=== PATIENT | female | born 1940 | race Caucasian/White ===

== ENCOUNTER 2017-06-07 10:00 | Inpatient (IN) ==
[~2017-06-07 10:00] MED LIST: PNEUMOCOCCAL VAC ADMIN CHARGE INJ ONE
--- OUTSIDE RECORDS SUMMARY | 2017-06-07 10:24 | External Medical Summary | Continuity of Care Document ---
:1940 Author Organization [facility] Care Team Providers Name Role Phone SIXTO COOK Unavailable Unavailable Insurance Providers Payer Name Policy Number Subscriber Name Relationship Medicare A And B [id number] Irena Magana 18 Self / Same As Patient [employer] Supp [id number] Irena Magana 18 Self / Same As Patient Problems Medical Problems Problem Onset Date Status Dysuria 05/14/2012 Active Acute urinary tract infection 08/29/2013 Active SEPSIS 11/21/2012 Active Endoscopy of urinary bladder 06/02/2013 Active Injury of foot ~03/24/2014 Active Medications Medication Dose Route Sig Days/Qty Instructions Order Discontinued Status Date Date Lisinopril 10 Mg ORAL DAILY 07/20/14 Discontinue (Zestril) 12 d Hydrochlorothiaz 12.5 ORAL DAILY 01/01/14 Discontinue barbara Mg 12 d Metformin Hcl 500 ORAL TWICE 05/14/ Active Mg A DAY 12 Trimethoprim/Sul 1 Ea ORAL TWICE 14 Qty 03/06/13 Discontinue famethoxazole A DAY 12 d Phenazopyridine 200 ORAL EVERY 15 Qty 03/06/13 Discontinue Hcl Mg 8HRS 12 d PRN Levofloxacin 250 ORAL DAILY 4 Qty 03/06/13 Discontinue Mg 12 d Hydrocodone 1 Tab ORAL Q 4H 10 Qty Pain 05/19/ 07/23/14 Discontinue Bit/Acetaminophe PRN 12 d n Trimethoprim/Sul 1 Ea ORAL TWICE 14 Qty 01/01/14 Discontinue famethoxazole A DAY 14 d Phenazopyridine 200 ORAL EVERY 12 Qty 08/29/ 14 Discontinue Hcl Mg 8HRS 14 d Citalopram 40 Mg ORAL DAILY 01/01/ Active Hydrobromide 14 (Celexa) Oxycodone/Acetam 1 Tab ORAL EVERY 20 Qty 03/25/ /06/06 Discontinue inophen 6 14 d HOURS PRN PAIN Aspirin 81 Mg ORAL DAILY 07/20/ Active 15 Lisinopril/[place] 1 ORAL DAILY 07/20/ Active chlorothiazide Each 15 Ciprofloxacin/Ci 500 ORAL TWICE 07/20/ Active profloxa Hcl Mg A DAY 15 Social History No social history. Hospital Discharge Instructions No hospital discharge instructions. Plan of Care No plan of care. Functional Status No functional status results. Allergies, Adverse Reactions, Alerts Allergen Type Severity Reaction Status Last Updated Lovastatin Allergy Unknown Active 03/26/14 Pravastatin Allergy Unknown Active 03/26/14 Simvastatin Allergy Unknown Active 03/26/14 Immunizations No immunization records. Vital Signs Acute Vital Signs Vital Response Date/Time Temperature (Fahrenheit) 97.5 Pulse 84 bpm Respirations 20 Height 5 ft 2 in Weight 178 lb Body Mass Index 32.6 kg/m^2 Results Test Source Date Result Interp. Ref. Range Comments Absolute Neutrophil November 21, 0.2 # 2012 2:20pm Activated Partial November 21, 33.7 SEC N 25.0-39.0 Thromboplast Time 2012 2:20pm Alanine November 21, 20 U/L L 30-65 Aminotransferase 2014 7:45am (ALT/SGPT) Albumin November 21, 4.0 g/dL N 3.4-5.0 2014 7:45am Albumin/Globulin November 21, 1.379 N 1.1-1.8 Ratio 2014 7:45am Alkaline Phosphatase November 21, 65 U/L N 38-126 2014 7:45am Anion Gap November 21, 16.2 MEQ/L H 3-15 2014 7:45am Aspartate Amino November 21, 22 U/L N 15-37 Transf (AST/SGOT) 2014 7:45am BUN/Creatinine Ratio November 21, 18 N 10-20 2014 7:45am Band Neutrophils % November 21, 2 % N 0-6 2012 2:20pm Basophils # (Auto) June 0.1 10^3uL 2014 10:50am Basophils % (Manual) November 21, 0 % N 0-2 2012 2:20pm Basophils (%) (Auto) June 1 % N 0-2 2014 10:50am Blood Morphology November 21, Normal NORMAL Comment 2012 2:20pm Blood Urea Nitrogen November 21, 17 mg/dL N 7-18 2014 7:45am C-Reactive Protein May 30, 1.60 MG/DL H 0.0-0.9 CALL TO MICHELINE 2012 11:30am Calcium Level November 21, 8.9 mg/dL N 8.8-10.8 2014 7:45am Calcium/Ionized November 21, 4.0 mg/dL N 3.8-4.6 Calcium Ratio 2014 7:45am Calculated November 21, 272 mosm/L L 280-300 Osmolality 2014 7:45am Carbon Dioxide Level November 21, 22 mmol/L N 22-29 2014 7:45am Chloride Level November 21, 106 mmol/L N 98-108 2014 7:45am Cholesterol Level June 158 mg/dL N 50-200 2014 10:50am Cholesterol Risk June 4.2 N 0.0-5.0 Factor 2014 10:50am Creatinine November 21, 0.94 mg/dL N 0.6-1.2 2014 7:45am Differential Total November 21, 100 Cells Counted 2012 2:20pm Eosinophils # November 21, 0.0 # 2012 2:20pm Eosinophils # (Auto) June 0.3 10^3uL 2014 10:50am Eosinophils % November 21, 0 % N 0-4 (Manual) 2012 2:20pm Eosinophils (%) June 5 % H 0-4 (Auto) 2014 10:50am Estimat Glomerular November 21, 70.6 Filtration Rate 2014 7:45am Estimated GFR November 21, 58.4 (Non- 2014 7:45am Cymraes Glucose Level November 21, 89 mg/dL N 70-110 2014 7:45am HDL Cholesterol June 38 mg/dL L 40-60 2014 10:50am HDL Triglycerides June 121 mg/dL N 10-150 2014 10:50am Hematocrit November 21, 32.60 % L 35.00-45.00 2014 7:45am Hemoglobin November 21, 10.2 g/dL L 12.0-15.5 2014 7:45am Hemoglobin A1c June 6.6 % H 4.0-6.0 2014 10:50am LDL Cholesterol June 96 mg/dL N 50-130 (Measured) 2014 10:50am LDL Cholesterol, February 22, 118 mg/dL 0-130 Calculated 2013 9:50am Lactic Acid Level November 21, 1.8 meq/L 0.5-2.2 2012 2:45pm Lymphocytes # November 21, 0.3 # 2012 2:20pm Lymphocytes # (Auto) June 1.5 X10^3 2014 10:50am Lymphocytes % November 21, 3 % L 20-46 (Manual) 2012 2:20pm Lymphocytes (%) June 21 % N 20-46 (Auto) 2014 10:50am Mean Corpuscular November 21, 28.3 PG N 26.0-34.0 Hemoglobin 2014 7:45am Mean Corpuscular November 21, 31.3 g/dL N 31.0-37.0 Hemoglobin Concent 2014 7:45am Mean Corpuscular November 21, 90 FL N 80-100 Volume 2014 7:45am Mean Platelet Volume November 21, 9.6 FL H 6.0-9.5 2014 7:45am Monocytes # November 21, 0.0 # 2012 2:20pm Monocytes # (Auto) June 0.6 X10^3 2014 10:50am Monocytes % (Manual) November 21, 0 % L -2012 2:20pm Monocytes (%) (Auto) June 9 % N 3-11 2014 10:50am Neutrophils # November 21, 10.5 # 2012 2:20pm Neutrophils # (Auto) June 4.6 X10^3 2014 10:50am Neutrophils (%) June 65 % N 51-67 (Auto) 2014 10:50am Platelet Count November 21, 404 10^3uL N 148-030 2325 7:45am Potassium Level November 21, 4.6 mmol/L N 3.5-5.1 2014 7:45am Prothromb Time November 21, 1.0 N 0.8-1.4 International Ratio 2014 7:45am Prothrombin Time November 21, 12.8 SEC N 11.9-14.2 2014 7:45am Red Blood Count November 21, 3.61 10^6uL L 4.00-5.00 2014 7:45am Red Cell November 21, 14.2 % N 11.8-15.6 Distribution Width 2014 7:45am Segmented November 21, 95 % H 51-67 Neutrophils % 2012 2:20pm Sodium Level November 21, 140 mmol/L N 267-594 2607 7:45am Thyroid Stimulating June 08, 1.03 UIU/ML N 0.46-4.68 Hormone (TSH) 2013 10:00am Total Bilirubin November 21, 0.3 mg/dL DN 0.1-1.0 2014 7:45am Total Creatine August 03, 115 U/L N 30-135 Kinase 2013 10:00am Total Protein November 21, 6.9 g/dL N 6.4-8.5 2014 7:45am Triglycerides Level February 22, 175 mg/dL H 0-149 2013 9:50am Urine Bacteria November 21, None seen Negative 2014 7:45am /HPF Urine Bilirubin November 21, Negative Negative 2014 7:45am Urine Blood November 21, Trace-intact H Negative 2014 7:45am Urine Clarity November 21, Clear 2014 7:45am Urine Collection November 21, Clean catch Type 2014 7:45am Urine Color November 21, Dark yellow 2014 7:45am Urine Glucose (UA) November 21, Negative Negative 2014 7:45am Urine Hyaline Casts April 2+ /LPF 2011 3:35pm Urine Ketones November 21, Negative Negative 2014 7:45am Urine Leukocyte November 21, Negative Negative Esterase 2014 7:45am Urine Microscopic November 21, None seen WBC 2014 7:45am /HPF Urine Mucus August 29, 1+ Collected by 2014 nurse? NUrine 11:30am collection method Clean Catch Urine Nitrite November 21, Negative Negative 2014 7:45am Urine Protein November 21, Negative 2014 7:45am Urine RBC November 21, 0-2 /HPF 2014 7:45am Urine Specific November 21, 1.025 1.005-1.030 Lillie 2014 7:45am Urine Squamous November 21, 2-5 /LPF Epithelial Cells 2014 7:45am Urine Transitional October 27, Not Epithelial Cells 2012 Performed 10:14am Urine Urobilinogen November 21, 0.2 mg/dL 0.2-1.0 2014 7:45am Urine WBC August 29, None seen Collected by 2014 /HPF nurse? NUrine 11:30am collection method Clean Catch Urine pH November 21, 5.0 5.0 - 8.0 2014 7:45am VLDL Cholesterol June 24 mg/dL N 4.00-40.00 12, 2015 10:50am Volume Urine November 21, 12 ml Centrifuged 2014 7:45am White Blood Count November 21, 6.44 10^3uL N 4.0-11.0 2014 7:45am Bacterial Blood-Annie November 21, Identification pheral 2012 2:20pm Urine Culture Urine-Void January 19, ed Urine 2012 5:05pm Procedures No known history of procedures.
--- OUTSIDE RECORDS SUMMARY | 2017-06-07 10:24 | External Medical Summary | Summary of Care ---
:1940 Author Name Sean Taylor M.D. Address [address], [place] [id number] Care Team Providers Name Role Phone Sean Taylor M.D. 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36) Status: Active Lumbar radiculopathy (724.4, M54.16) Status: Active 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 Refills: 0 Started 22-Aug-2014 ActiveCitalopram Hydrobromide 40 MG Oral Tablet TAKE 1 TABLET DAILY. Refills: 0 Started 22-Aug-2014 ActiveNorco 7.5-325 MG Oral Tablet TAKE 1 TABLET EVERY 4 TO 6 HOURS NEEDED FOR PAIN. Refills: 0 Started 22-Aug-2014 ActiveTraMADol HCl - 50 MG Oral Tablet TAKE 1 OR 2 TABLETS BY MOUTH TWICE A DAY Quantity: 120 Refills: 0 Started 22-Aug-2014 ActiveHYDROmorphone HCl - 4 MG Oral Tablet Take 1 to 2 po every 4-6 hours prn.*max 4 per day*Must last [address] Taylor. Quantity: 120 Refills: 0 Juan A Taylor M.D. Started 12-Sep-2014 ActiveEmbeda 20-0.8 MG Oral Capsule Extended Release Take 1 tab po every 12 hours*max 2 per day*Must last [address] Taylor Quantity: 60 Refills: 0 Juan A Taylor M.D. Started 11-Oct-2014 Active Allergies and Adverse Reactions Name Dates Details Statins Status: Active Past Medical History Name Dates Details Depression (311, F32.9) Status: Active Hypertension (401.9, I10) Status: Active History of bladder problems (V13.09, Z87.448) Status: Resolved History of cancer of uterus (V10.42, Z85.42) Status: Resolved History of diabetes mellitus (V12.29, Z86.39) Status: Resolved History of Diverticulitis (562.11, K57.92) Status: Resolved History of falling (V15.88, Z91.81) Status: Resolved History of High cholesterol (272.0, E78.0) Status: Resolved History of malignant neoplasm of bladder (V10.51, Z85.51) Status: Resolved History of Rotator cuff injury (959.2, S46.009A) Status: Resolved Procedures Procedure Dates Details History of Hysterectomy History of Back Surgery History of Bladder Cystectomy History of Uterine Surgery History of Bladder Surgery History of Lower Back Surgery Lumbar Disc Procedures not documented Immunization Name Dates Details Immunizations not documented Family History Unknown Family Member Name Dates Details Family history of diabetes mellitus (V18.0, Z83.3) Comments: Family History Status: Active Mother Name Dates Details Family history of History of back surgery (V45.89, Z98.89) Status: Active Family history of diabetes mellitus (V18.0, Z83.3) Status: Active Father Name Dates Details Family history of glaucoma (V19.11, Z83.511) Status: Active Social History Name Dates Details Smoking StatusFormer smoker Vital Signs Date Test Result Details No Known Vitals to report Results Date Description Value Details Results not documented Plan of Care Planned Observations Name Dates Details Planned Goals not documented Goal Planned Encounters Appointment; Provider: Juan A Taylor On 13:00 Instructions Instructions not documented Encounters Appointment; Juan A Taylor On Encounter Diagnosis: Problem not documented 11:30 Appointment; Juan A Taylor On 11-Oct-2014 Encounter Diagnosis: Problem not documented 08:30 Appointment; Juan A Taylor On 12-Sep-2014 Encounter Diagnosis: Problem not documented 14:00 Appointment; Juan A Taylor On 12-Sep-2014 Encounter Diagnosis: Problem not documented 13:30 Appointment; Jeffry Kennedy On 11-Sep-2014 Encounter Diagnosis: Problem not documented 14:50 Appointment; Jeffry Kennedy On 22-Aug-2014 Encounter Diagnosis: Problem not documented 16:00 Appointment; Juanpablo Forte On 22-Feb-2014 Encounter Diagnosis: Problem not documented 06:00 Appointment; Juanpablo Forte On 21-Feb-2014 Encounter Diagnosis: Problem not documented 11:00
--- OUTSIDE RECORDS SUMMARY | 2017-06-07 10:24 | External Medical Summary | Clinical Summary ---
:1940 Author Organization [facility] Address [address] [place] [address] Phone Care Team Providers Name Role Phone Unavailable Primary Care Provider Unavailable Source Comments Some departments are not documenting in the electronic medical record. If you do not see the information that you expected, contact Release of Information in the Health Information Management department at [phone] for further assistance in locating additional records.[facility] Social History Tobacco Use Types Packs/Day Years Used Date Never Assessed Sex Assigned at Date Recorded Not on file Plan of Treatment Health Maintenance Due Date Last Done Comments PHYSICAL (COMPREHENSIVE) EXAM 1948 PERTUSSIS VACCINE 1952 TETANUS VACCINE 1958 COLORECTAL CANCER SCREENING 11/01/1991 SHINGLES VACCINE 2001 OSTEOPOROSIS SCREENING 2006 PREVNAR/PNEUMOVAX (#1) 2006 INFLUENZA VACCINE 12/22/2016
--- OUTSIDE RECORDS SUMMARY | 2017-06-07 10:25 | External Medical Summary | Summary of Care ---
:1940 Author Name Sena Taylor M.D. Address [address] [place], [place] [id number] Care Team Providers Name Role Phone Sean Taylor M.D. 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
--- OUTSIDE RECORDS SUMMARY | 2017-06-07 10:25 | External Medical Summary | Continuity of Care Document ---
:1940 Author Organization [facility] Care Team Providers Name Role Phone SIXTO COOK Unavailable Unavailable Insurance Providers Payer Name Policy Number Subscriber Name Relationship Medicare A And B [id number] Irena Hernández 18 Self / Same As Patient [employer] Supp [id number] Irena Hernández 18 Self / Same As Patient Advance Directives Directive Response Recorded Date/Time Advanced Directives No 05/27/15 4:08pm Chief Complaint and Reason for Visit Chief Complaint DX: CHEST PAIN R/O ACS AND GASTRITIS Reason for Visit Dysuria Endoscopy of urinary bladder Hiatal hernia Injury of foot SEPSIS Problems Active Problems Medical Problem Onset Date Status Acute urinary tract infection 08/29/2013 Acute Back pain Unknown Acute Chest pain Unknown Acute Constipation by delayed colonic transit Unknown Acute Cystitis ~03/06/2015 Acute Diabetes type 2, uncontrolled Unknown Acute Dysuria 05/14/2012 Acute Endoscopy of urinary bladder 06/02/2013 Acute Hiatal hernia Unknown Acute Injury of foot ~03/24/2014 Acute SEPSIS 11/21/2012 Acute Medications Current Home Medications Medication Dose Units Route Directions Days/Qty Instructions Start Date Citalopram 40 Mg ORAL Daily 01/01/14 Hydrobromide (Celexa) 40 Mg Cholecalciferol 1,000 Unit ORAL Daily 05/27/15 1,000 Unit Magnesium 30 Ml ORAL As Needed 05/27/15 Hydroxide 400 Mg/5 Ml Lisinopril 10 Mg ORAL Daily 05/27/15 (Zestril) 10 Mg Ca Carb/Vit D3/Mag 1 Each ORAL Daily 05/27/15 Ox/Zn Oxide 1 Each Metformin Hcl 850 Mg ORAL Twice A Day 05/27/15 (Glucophage) 850 With Meals Mg Aspirin 81 Mg 81 Mg ORAL Daily 0 05/28/15 Simvastatin 10 Mg ORAL Bedtime 0 05/28/15 (Zocor) 10 Mg Fentanyl 25 Mcg/Hr 25 Mcg TRANSDERMAL Every 72 0 05/28/15 Hours Hydrocodone 1 Ea ORAL Every 3 Hours 60 05/28/15 Bit/Acetaminophen as needed for 1 Each Pain Pantoprazole 40 Mg ORAL Daily@07 30 05/28/15 Sodium (Protonix) 40 Mg Lubiprostone 24 24 Mcg ORAL Daily 30 05/28/15 Mcg Past Home Medications Medication Directions Ordered Status Lisinopril (Zestril) 10 Mg Tablet, Daily 05/14/12 Discontinued 10 Mg Oral Hydrochlorothiazide 12.5 Mg Cap, Daily 05/14/12 Discontinued 12.5 Mg Oral Metformin Hcl 1,000 Mg Tab.er.24, Twice A Day for Diabetes 05/14/12 Discontinued 850 Mg Oral Trimethoprim/Sulfamethoxazole 1 Ea Twice A Day 05/14/12 Discontinued Tablet, 1 Ea Oral Phenazopyridine Hcl 200 Mg Tablet, Every 8HRS as needed 05/14/12 Discontinued 200 Mg Oral Levofloxacin 250 Mg Tab, 250 Mg Oral Daily 05/19/12 Discontinued Hydrocodone Bit/Acetaminophen 1 Tab Q 4H Prn 05/19/12 Discontinued Tab, 1 Tab Oral Trimethoprim/Sulfamethoxazole 1 Ea Twice A Day 08/29/13 Discontinued Tablet, 1 Ea Oral Phenazopyridine Hcl 200 Mg Tablet, Every 8HRS 08/29/13 Discontinued 200 Mg Oral Oxycodone/Acetaminophen 1 Tab Every 6 Hours as needed for 03/25/14 Discontinued Tablet, 1 Tab Oral Pain Aspirin 81 Mg Tablet.dr, 81 Mg Oral Daily 07/20/14 Discontinued Lisinopril/Hydrochlorothiazide 1 Daily 07/20/14 Discontinued Each Tablet, 1 Each Oral Ciprofloxacin 500 Mg Tablet, 500 Mg Twice A Day 03/06/15 Discontinued Oral Phenazopyridine Hcl 200 Mg Tablet, Three Times A Day as needed 03/06/15 Discontinued 200 Mg Oral for Pain Acetaminophen/Hydrocodone Bitart 1 Every 6 Hours as needed for 03/06/15 Discontinued Each Tablet, 1-2 Tab Oral Pain Miconazole Nitrate (Micatin 2% As Needed 05/27/15 Discontinued Cream) 28.4 Gm Cream..g., 28.4 Gm Topical Potassium Gluconate 595 Mg Tablet, Daily 05/27/15 Discontinued 595 Mg Oral Acetaminophen (Tylenol) 500 Mg As Needed 05/27/15 Discontinued Tablet, 1-2 Tab Oral Acetaminophen/Diphenhydramine Hcl As Needed 05/27/15 Discontinued (Tylenol Pm 500MG/25MG) 1 Tab Tablet, 1-2 Tab Oral Tramadol Hcl (Ultram) 50 Mg Tablet, As Needed 05/27/15 Discontinued 50 Mg Oral Morphine Sulfate/Naltrexone 1 Each Q12h Prn 05/27/15 Discontinued Cap.er.po, 1 Each Oral Hydromorphone Hcl 8 Mg Tab.er.24h, As Needed 05/27/15 Discontinued 1-2 Mg Oral Metformin Hcl (Glucophage) 500 Mg Twice A Day 05/27/15 Discontinued Tablet, 500 Mg Oral Social History Social History Problem Response Recorded Date/Time Onset Date Status 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 Return to ED if chest pain returns. Activity Instructions May resume normal activity Doctor's Appointment Tomorrow at the [facility] with me. Discharge Diet: Carbohydrate controlled Orders DISCHARGE: Discharge to:: HOME Home, Self Care Discharge Plan of Care Discharge Plan of Care #1 Problem: Chest pain Goal: Follow meds directions Instructions for meeting goal: Follow printed instructions written by Dr. Rodney Elizabeth. Plan of Care Discharge Date 05/28/15 11:47am Disposition 01 HOME OR SELF-CARE Instructions/Education Provided Fentanyl (Absorbed through the skin) Pantoprazole (By mouth) Lubiprostone (By mouth) Chest Pain (DC) Constipation (DC) Prescriptions See Medication Section Care Plan and Goals See Discharge Instructions Section Functional Status Query Response Date Recorded Activity Up with assistance May 27, 2015 4:00pm Assistance Required Assistance of one May 27, 2015 4:00pm Level of Conscious Oriented x4 May 28, 2015 8:32am Drowsy Allergies, Adverse Reactions, Alerts Allergen Type Severity Reaction Status Last Updated Lovastatin Allergy Unknown Active 03/26/14 Pravastatin Allergy Unknown Active 03/26/14 Simvastatin Allergy Unknown Active 03/26/14 Immunizations No immunization records. Vital Signs Acute Vital Signs Vital Response Date/Time Temperature (Fahrenheit) 97.0 05/28/2015 8:29am Pulse 69 bpm 05/28/2015 8:33am Respirations 18 05/28/2015 8:29am Height 5 ft 2 in Weight 170 lb Body Mass Index 31.2 kg/m^2 Results Laboratory Results Test Name Result Units Flags Reference Collection Result Comments Date/Time Date/Time White Blood Count 7.62 10^3uL 4.0-11.0 05/27/2015 05/27/2015 11:30am 11:36am Red Blood Count 3.60 10^6uL L 4.00-5.00 05/27/2015 05/27/2015 11:30am 11:36am Hemoglobin 9.2 g/dL L 12.0-15.5 05/27/2015 05/27/2015 11:30am 11:36am Hematocrit 30.80 % L 35.00-45.00 05/27/2015 05/27/2015 11:30am 11:36am Mean Corpuscular 86 FL 80-100 05/27/2015 05/27/2015 Volume 11:30am 11:36am Mean Corpuscular 25.6 PG L 26.0-34.0 05/27/2015 05/27/2015 Hemoglobin 11:30am 11:36am Mean Corpuscular 29.9 g/dL L 31.0-37.0 05/27/2015 05/27/2015 Hemoglobin Concent 11:30am 11:36am Red Cell 17.8 % H 11.8-15.6 05/27/2015 05/27/2015 Distribution Width 11:30am 11:36am Platelet Count 464 10^3uL H 150-450 05/27/2015 05/27/2015 11:30am 11:36am Mean Platelet 9.4 FL 6.0-9.5 05/27/2015 05/27/2015 Volume 11:30am 11:36am Neutrophils (%) 70 % H 51-67 05/27/2015 05/27/2015 (Auto) 11:30am 11:36am Lymphocytes (%) 22 % 20-46 05/27/2015 05/27/2015 (Auto) 11:30am 11:36am Monocytes (%) 6 % 3-11 05/27/2015 05/27/2015 (Auto) 11:30am 11:36am Eosinophils (%) 2 % 0-4 05/27/2015 05/27/2015 (Auto) 11:30am 11:36am Basophils (%) 1 % 0-2 05/27/2015 05/27/2015 (Auto) 11:30am 11:36am Neutrophils # 5.3 X10^3 05/27/2015 05/27/2015 (Auto) 11:30am 11:36am Lymphocytes # 1.7 X10^3 05/27/2015 05/27/2015 (Auto) 11:30am 11:36am Monocytes # (Auto) 0.4 X10^3 05/27/2015 05/27/2015 11:30am 11:36am Eosinophils # 0.1 10^3uL 05/27/2015 05/27/2015 (Auto) 11:30am 11:36am Basophils # (Auto) 0.0 10^3uL 05/27/2015 05/27/2015 11:30am 11:36am Prothrombin Time 12.0 SEC 11.9-14.2 05/27/2015 05/27/2015 11:30am 11:46am Prothromb Time 0.9 0.8-1.4 05/27/2015 05/27/2015 International Ratio 11:30am 11:46am Activated Partial 37.0 SEC H 24.9-35.9 05/27/2015 05/27/2015 Thromboplast Time 11:30am 11:46am Sodium Level 141 mmol/L 135-150 05/27/2015 05/27/2015 11:30am 11:46am Potassium Level 4.5 mmol/L 3.5-5.1 05/27/2015 05/27/2015 11:30am 11:46am Chloride Level 105 mmol/L 98-108 05/27/2015 05/27/2015 11:30am 11:46am Carbon Dioxide 25 mmol/L 22-29 05/27/2015 05/27/2015 Level 11:30am 11:46am Anion Gap 15.5 MEQ/L H 3-15 05/27/2015 05/27/2015 11:30am 11:46am Blood Urea Nitrogen 20 mg/dL H 7-18 05/27/2015 05/27/2015 11:30am 11:46am Creatinine 0.75 mg/dL 0.6-1.2 05/27/2015 05/27/2015 11:30am 11:46am BUN/Creatinine 27 H 10-20 05/27/2015 05/27/2015 Ratio 11:30am 11:46am Estimat Glomerular 91.7 05/27/2015 05/27/2015 Filtration Rate 11:30am 11:46am Estimated GFR 75.8 05/27/2015 05/27/2015 (Non- 11:30am 11:46am [place] Glucose Level 100 mg/dL 70-110 05/27/2015 05/27/2015 11:30am 11:46am Calculated 276 mosm/L L 280-300 05/27/2015 05/27/2015 Osmolality 11:30am 11:46am Calcium Level 8.8 mg/dL 8.8-10.8 05/27/2015 05/27/2015 11:30am 11:46am Calcium/Ionized 3.8 mg/dL 3.8-4.6 05/27/2015 05/27/2015 Calcium Ratio 11:30am 11:46am Magnesium Level 2.3 mg/dL 1.6-2.3 05/27/2015 05/27/2015 11:30am 11:46am Total Bilirubin 0.4 mg/dL 0.1-1.0 05/27/2015 05/27/2015 11:30am 11:46am Alkaline 66 U/L 38-126 05/27/2015 05/27/2015 Phosphatase 11:30am 11:46am Aspartate Amino 17 U/L 15-37 05/27/2015 05/27/2015 Transf (AST/SGOT) 11:30am 11:46am Alanine 22 U/L L 30-65 05/27/2015 05/27/2015 Aminotransferase 11:30am 11:46am (ALT/SGPT) Total Creatine 65 U/L 30-135 05/28/2015 05/28/2015 Kinase 4:01am 4:15am Creatine Kinase MB 2.1 ng/mL 0.0-6.0 05/28/2015 05/28/2015 4:01am 4:28am Troponin I < ng/mL 0.010-0.080 05/28/2015 05/28/2015 0.012 4:01am 4:28am Total Protein 7.2 g/dL 6.4-8.5 05/27/2015 05/27/2015 11:30am 11:46am Albumin 4.0 g/dL 3.4-5.0 05/27/2015 05/27/2015 11:30am 11:46am Albumin/Globulin 1.250 1.1-1.8 05/27/2015 05/27/2015 Ratio 11:30am 11:46am C-Reactive Protein < 0.50 mg/dL 0.0-0.9 05/27/2015 05/27/2015 11:30am 12:08pm Procedures No known history of procedures. Encounters Encounter Location Arrival/Admit Date Discharge/Depart Date Attending Provider Discharged [place] 05/27/15 2:27pm 05/28/15 11:47am [place], Inpatient (obs) [facility] RODNEY Sears MD Recent Diagnosis Dysuria Endoscopy of urinary bladder Hiatal hernia Injury of foot SEPSIS
--- OUTSIDE RECORDS SUMMARY | 2017-06-07 10:25 | External Medical Summary | Summary of Care ---
:1940 Author Name Sean Taylor M.D. 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) Status: Active Low back pain (724.2, M54.5) Status: Active Diabetes (250.00, E11.9) Status: Active [...] Active Lumbar radiculopathy (724.4, M54.16) Status: Active Medications Name Dates Details MetFORMIN [...] History of Lower Back Surgery Lumbar Disc ORTHO SPINE LUMBAR ( 2 VIEWS ONLY) Ordered:22-Aug-2014 ORTHO SCOLIOSIS Ordered:11-Sep-2014 ORTHO SPINE LUMBAR ( 2 VIEWS ONLY) Ordered:11-Sep-2014 CT L Spine Post Myelogram Ordered:22-Aug-2014 Immunization Name Dates Details Immunizations not documented [...] smoker Vital Signs Date Test Result Details 11-Sep-2014 14:27 BP Systolic 103 mm[Hg] Status: BP Diastolic 60 mm[Hg] Status: Heart Rate 76 /min Status: Results Date Description Value Details 12-Sep-2014 Comprehensive Metabolic 13:23 Panel 1212 SODIUM 140 mmol/L (Better) Range: 133-144 POTASSIUM 4.1 mmol/L (Better) Range: 3.5-5.1 CHLORIDE 104 mmol/L (Better) Range: 98-110 CARBON DIOXIDE 23.2 mmol/L (Better) Range: 23.0-33.0 ANION GAP 13 mmol/L (Better) Range: 6-16 BUN 22 mg/dL (Above high Range: 7-18 threshold) CREATININE, SERUM 0.92 mg/dL (Better) Range: 0.43-1.13 BUN:CREATININE RATIO 24 (Better) EST GFR, >60 ml/min (Better) Range: >60 EST GFR, NON-AFR [place] 60 ml/min (Below low Range: >60 threshold) Comments: EST GFR is reported in ml/min per 1.73 m2 of body surface area. For -Spanish, please multiple result by 1.2.----- GLUCOSE 89 mg/dL (Better) Range: 70-100 ALK PHOSPHATASE 55 U/L (Better) Range: 46-116 TOTAL BILIRUBIN 0.20 mg/dL (Better) Range: 0.20-1.00 AST 15 U/L (Better) Range: 8-35 ALT 17 U/L (Better) Range: 14-59 Comments: Please note new reference ranges. Effective 08/02/2014.----- ALBUMIN 3.6 g/dL (Better) Range: 3.4-5.0 TOTAL PROTEIN 6.7 g/dL (Better) Range: 6.4-8.2 A/G RATIO 1.2 units (Better) Range: 1.0-1.8 CALCIUM 8.2 mg/dL (Below low Range: 8.5-10.1 threshold) 13-Sep-2014 HEMOGLOBIN A1C 3507 09:47 Hemoglobin A1C 6.8 % (Better) ESTIMATED AVG. GLUCOSE 148 (Better) 10:29 Nasal Screen for MRSA 5065 SCREEN FOR MRSA - NASAL Microbiology results Comments: RESULT:NEGATIVE for MRSA----- (Better) 20-Sep-2014 MRI LUMBAR SPINE WITHOUT Comments: Exam Date: 09/20/2014 12: 52Dictation Date: 09/20/2014 15:04 15:04 AND WITH CONTRAST (if Hx of Low Back Surgery or CA) XMR SPINE LUMBAR WO/W MINA (Better) Plan of Care Planned Observations Name Dates Details Planned Goals not documented Goal Instructions Instructions not documented Encounters Appointment; Juan A Taylor On 11-Oct-2014 Encounter [...]
--- OUTSIDE RECORDS SUMMARY | 2017-06-07 10:25 | External Medical Summary | Summary of Care ---
:1940 Author Name Sean aTylor M.D. Address [address], [place] [id number] Care Team Providers Name Role Phone Sean Taylor M.D. 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 Low back pain (724.2, M54.5) Status: Active Diabetes (250.00, E11.9) Status: Active Hypertension (401.9, I10) Status: Active Depression (311, F32.9) Status: Active Kyphosis, postlaminectomy (737.12, M96.3) Status: Active Scoliosis (and kyphoscoliosis), idiopathic (737.30, M41.20) Status: Active Spinal stenosis (724.00, M48.00) Status: Active Kyphosis of thoracolumbar region, unspecified kyphosis type (737.10, M40.205) Status: Active Lumbar post-laminectomy syndrome (722.83, M96.1) Status: Active Lumbar radiculopathy (724.4, M54.16) Status: Active Pre-op evaluation (V72.84, Z01.818) Status: Active Leg pain (729.5, M79.606) Status: Active Neuropathic pain, leg, 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 Refills: 0 Started -Aug-2014 ActiveCitalopram Hydrobromide 40 MG Oral Tablet TAKE 1 TABLET DAILY. Refills: 0 Started -Aug-2014 ActiveNorco 7.5-325 MG Oral Tablet TAKE 1 TABLET EVERY 4 TO 6 HOURS NEEDED FOR PAIN. Refills: 0 Started 22-Aug-2014 ActiveTraMADol HCl - 50 MG Oral Tablet TAKE 1 OR 2 TABLETS BY MOUTH TWICE A DAY Quantity: 120 Refills: 0 Started 22-Aug-2014 ActiveKetorolac Tromethamine 60 MG/2ML Intramuscular Solution Inject 60 mg IM x1 in [facility] Quantity: 1 Refills: 0 Juan A Taylor M.D. Started 12-Sep-2014 Admin RequestedHYDROmorphone HCl - 4 MG Oral Tablet Take 1 to 2 po every 4-6 hours prn.*max 4 per day*Must last [address] Taylor. Quantity: 120 Refills: 0 Juan A Taylor M.D. Started 12-Sep-2014 Active Allergies and Adverse Reactions Name Dates [...] History of Lower Back Surgery Lumbar Disc Nasal Screen for MRSA 5065 Ordered:11-Sep-2014 HEMOGLOBIN A1C 3507 Ordered:11-Sep-2014 MRI LUMBAR SPINE Ordered:12-Sep-2014 ORTHO SPINE LUMBAR ( 2 VIEWS ONLY) Ordered:22-Aug-2014 CT L Spine Post Myelogram Ordered:22-Aug-2014 ORTHO SCOLIOSIS Ordered:11-Sep-2014 ORTHO SPINE LUMBAR ( 2 VIEWS ONLY) Ordered:11-Sep-2014 Immunization Name Dates Details Immunizations not documented [...] mm[Hg] Status: Heart Rate 76 /min Status: 22-Aug-2014 16:05 BP Systolic 104 mm[Hg] Status: BP Diastolic 66 mm[Hg] Status: Heart Rate 75 /min Status: Respiration Rate 20 /min Status: Weight 188 lb Status: Height 63 in Status: Body Mass Index Calculated 33.3 kg/m2 Status: Body Surface Area Calculated 1.88 m2 Status: Results Date Description Value Details 27-Aug-2014 13:43 CT L Spine Post Myelogram Comments: Exam Date: 11:03Dictation Date: 13:43 XC L SPINE POST MYELOGRAM (Better) 12:28 XF MYELOGRAM INJECTION (Better) Comments: Exam Date: 10: 12Dictation Date: 12:28 10-Sep-2014 11:12 MYELOGRAM LUMBAR Comments: Exam Date: 10: 11Dictation Date: 11:12 XF MYELOGRAM LUMBAR (Better) 12-Sep-2014 13:23 Comprehensive Metabolic Panel 1212 SODIUM 140 mmol/L Range: 133-144 (Better) POTASSIUM 4.1 mmol/L Range: 3.5-5.1 (Better) CHLORIDE 104 mmol/L Range: 98-110 (Better) CARBON DIOXIDE 23.2 mmol/L Range: 23.0-33.0 (Better) ANION GAP 13 mmol/L Range: 6-16 (Better) BUN 22 mg/dL (Above Range: 7-18 high threshold) CREATININE, SERUM 0.92 mg/dL Range: 0.43-1.13 (Better) BUN:CREATININE RATIO 24 (Better) EST GFR, >60 ml/min Range: >60 (Better) EST GFR, NON-AFR [place] 60 ml/min (Below Range: >60 low threshold) Comments: EST GFR is reported in ml/min per 1.73 m2 of body surface area. For -Citizen Of [place], please multiple result by 1.2.----- GLUCOSE 89 mg/dL (Better) Range: 70-100 ALK PHOSPHATASE 55 U/L (Better) Range: 46-116 TOTAL BILIRUBIN 0.20 mg/dL Range: 0.20-1.00 (Better) AST 15 U/L (Better) Range: 8-35 ALT 17 U/L (Better) Range: 14-59 Comments: Please note new reference ranges. Effective 08/02/2014.----- ALBUMIN 3.6 g/dL (Better) Range: 3.4-5.0 TOTAL PROTEIN 6.7 g/dL (Better) Range: 6.4-8.2 A/G RATIO 1.2 units Range: 1.0-1.8 (Better) CALCIUM 8.2 mg/dL (Below Range: 8.5-10.1 low threshold) Plan of Care Planned Observations Name Dates Details Planned Goals not documented Goal Instructions Instructions not documented Encounters Appointment; Juan A Taylor On 12-Sep-2014 Encounter [...]
--- OUTSIDE RECORDS SUMMARY | 2017-06-07 10:25 | External Medical Summary ---
:1940 Author Name GENERATED, SYSTEM Care Team Providers Name Role Phone UNASSIGNED DOCTOR MD RENETTA DOCTOR Primary Care Provider [phone] Reason For Visit Chief Complaint LBP Social History Functional Status Vital Signs Results Problems Encounter Diagnosis No relevant problems exist. Encounters Encounter Diagnosis No relevant problems exist. Plan of Care Procedures No relevant procedures performed. Immunizations No immunizations administered or ordered. Hospital Course Hospital Discharge Instructions Allergies, Adverse Reactions, Alerts Latex Allergy has not been assessed.IV Contrast Allergy has not been assessed. Medication Medication reconciliation has not been performed.
--- OUTSIDE RECORDS SUMMARY | 2017-06-07 10:25 | External Medical Summary | Summary of Care ---
:1940 Author Name Jeffry Kennedy M.D. Address [address] [place] [address] Care Team Providers Name Role Phone Outside, Physician Primary Care Provider Unavailable Functional [...] Active Pre-op evaluation (V72.84, Z01.818) Status: Active Medications Name Dates Details MetFORMIN [...] DAY Quantity: 120 Refills: 0 Started 22-Aug-2014 Active Allergies and Adverse Reactions Name Dates Details Statins Status: Active Past Medical History Name Dates Details Depression (311, F32.9) Status: Active Hypertension (401.9, I10) Status: Active History of bladder problems (V13.09, Z87.448) Status: Resolved History of cancer of uterus (V10.42, Z85.42) Status: Resolved History of diabetes mellitus (V12.29, Z86.39) Status: Resolved History of Diverticulitis (562.11, K57.92) Status: Resolved History of High cholesterol (272.0, E78.0) Status: Resolved History of malignant neoplasm of bladder (V10.51, Z85.51) Status: Resolved Procedures Procedure Dates Details History of Hysterectomy History of Back Surgery History of Bladder Cystectomy Nasal Screen for MRSA 5065 Ordered:11-Sep-2014 Comprehensive Metabolic Panel 1212 Ordered:11-Sep-2014 HEMOGLOBIN A1C 3507 Ordered:11-Sep-2014 ORTHO SPINE LUMBAR ( 2 VIEWS ONLY) Ordered:22-Aug-2014 CT L Spine Post Myelogram Ordered:22-Aug-2014 ORTHO SCOLIOSIS Ordered:11-Sep-2014 ORTHO SPINE LUMBAR ( 2 VIEWS ONLY) Ordered:11-Sep-2014 Immunization Name Dates Details Immunizations not documented Family History Mother Name Dates Details Family history of diabetes mellitus (V18.0, Z83.3) Status: Active Family history of History of back surgery (V45.89, Z98.89) Status: Active Father Name Dates Details Family [...] 11Dictation Date: 11:12 XF MYELOGRAM LUMBAR (Better) Plan of Care Planned Observations Name Dates Details Planned Goals not documented Goal Planned Encounters Appointment; Provider: Juan A Taylor On 12-Sep-2014 13:30 Instructions Instructions not documented Encounters Appointment; Jeffry Kennedy On 11-Sep-2014 Encounter Diagnosis: Problem not documented 14:50 Appointment; Jeffry Kennedy On 22-Aug-2014 Encounter Diagnosis: Problem not documented 16:00 Appointment; Juanpablo Forte On 22-Feb-2014 Encounter Diagnosis: Problem not documented 06:00 Appointment; Juanpablo Forte On 21-Feb-2014 Encounter Diagnosis: Problem not documented 11:00
--- OUTSIDE RECORDS SUMMARY | 2017-06-07 10:25 | External Medical Summary | Continuity of Care Document ---
:1940 Author Organization [facility] Care Team Providers Name Role Phone SIXTO COOK Unavailable Unavailable Insurance Providers Payer Name Policy Number Subscriber Name Relationship Medicare A And B [id number] Irena Hernández 18 Self / Same As Patient Blue Cross [facility] Supp [id number] Irena Hernández 18 Self / Same As Patient Advance Directives Directive Response Recorded Date/Time Advanced Directives No 04/19/16 8:36pm Chief Complaint and Reason for Visit Chief Complaint ALTERED MENTAL STATUS Reason for Visit Cystitis Dysuria SEPSIS Urinary frequency Problems Active Problems Medical Problem Onset Date Status Acute urinary retention Unknown Acute Acute urinary tract infection 08/29/2013 Acute Altered mental status Unknown Acute Back pain Unknown Acute Chest pain Unknown Acute Constipation by delayed colonic transit Unknown Acute Cystitis ~03/06/2015 Acute Diabetes type 2, uncontrolled Unknown Acute Dysuria 05/14/2012 Acute Dysuria 10/13/2015 Acute Endoscopy of urinary bladder 06/02/2013 Acute Hiatal hernia Unknown Acute Hx of bladder cancer Unknown Acute Injury of foot ~03/24/2014 Acute Malaise Unknown Acute SEPSIS 11/21/2012 Acute Urinary frequency Unknown Acute Medications Current Home Medications Medication Dose Units Route Directions Days/Qty Instructions Start Date Magnesium Hydroxide 30 Ml ORAL As Needed 05/27/15 400 Mg/5 Ml Aspirin 81 Mg 81 Mg ORAL Daily 01/10/16 Cyclobenzaprine Hcl 5-10 Mg ORAL Every 8HRS as 04/19/16 10 Mg needed for Pain Ferrous Sulfate 325 325 Mg ORAL Daily 04/19/16 Mg Metformin Hcl 1,000 Mg ORAL Daily 04/20/16 (Glucophage) 500 Mg Lisinopril (Zestril) 10 Mg ORAL Daily 04/20/16 10 Mg Hydrocodone 1 Ea ORAL Every 6 Hours 60 04/20/16 Bit/Acetaminophen 1 as needed for Each Pain Alendronate Sodium 70 Mg ORAL Weekly 12 04/20/16 70 Mg Acetaminophen 1,000 Mg ORAL Daily as needed 04/20/16 (Tylenol) 500 Mg for Pain Duloxetine Hcl 30 Mg 30 Mg ORAL Daily 30 04/21/16 Past Home Medications Medication Directions Ordered Status [...] Every 8HRS 08/29/13 Discontinued 200 Mg Oral Citalopram Hydrobromide (Celexa) 40 Daily 01/01/14 Discontinued Mg Tablet, 40 Mg Oral Oxycodone/Acetaminophen 1 Tab Every 6 [...] Discontinued Each Tablet, 1-2 Tab Oral Pain Cholecalciferol 1,000 Unit Tab, 1000 Daily 05/27/15 Discontinued Unit Oral Miconazole Nitrate (Micatin 2% As Needed 05/27/15 Discontinued Cream) 28.4 Gm Cream..g., 28.4 Gm Topical Lisinopril (Zestril) 10 Mg Tablet, Daily 05/27/15 Discontinued 10 Mg Oral Ca Carb/Vit D3/Mag Ox/Zn Oxide 1 Daily 05/27/15 Discontinued Each Tablet, 1 Each Oral Potassium Gluconate 595 Mg Tablet, Daily 05/27/15 [...] Day 05/27/15 Discontinued Tablet, 500 Mg Oral Metformin Hcl (Glucophage) 850 Mg Twice A Day With Meals 05/27/15 Discontinued Tablet, 850 Mg Oral Aspirin 81 Mg Tab.chew, 81 Mg Oral Daily 05/28/15 Discontinued Simvastatin (Zocor) 10 Mg Tablet, 10 Bedtime 05/28/15 Discontinued Mg Oral Fentanyl 25 Mcg/Hr Patch.td72, 25 Every 72 Hours 05/28/15 Discontinued Mcg Transdermal Hydrocodone Bit/Acetaminophen 1 Each Every 3 Hours as needed for 05/28/15 Discontinued Tablet, 1 Ea Oral Pain Pantoprazole Sodium (Protonix) 40 Mg Daily@07 05/28/15 Discontinued Tablet., 40 Mg Oral Lubiprostone 24 Mcg Capsule, 24 Mcg Daily 05/28/15 Discontinued Oral Ciprofloxacin 500 Mg Tablet, 500 Mg Twice A Day 10/13/15 Discontinued Hydromorphone Hcl 4 Mg Tab, 4 Mg As Needed as needed for 10/13/15 Discontinued Oral Pain Lisinopril/Hydrochlorothiazide 1 Daily 01/10/16 Discontinued Each Tablet, 1 Each Oral Duloxetine Hcl 30 Mg Capsule., 30 Daily 04/19/16 Discontinued Mg Oral Social History Social History Problem Response Recorded Date/Time Onset Date Status Exposure to occupational hazards No 04/19/2016 8:36pm Query Response Start Date Stop Date Smoking Status Former smoker Hospital Discharge Instructions Patient's Instructions Instructions Instructions You were admitted for altered mental status. Your home medications were decreased while you were here. You have managed well with this. You are being discharge to home. Cymbalta has been added to your medication regimen. Dilaudid has been stopped. Please follow up with your PCP in the next 7 days. Discharge Diet: Carbohydrate controlled Orders DISCHARGE: Discharge to:: HOME Home, Self Care Plan of Care Discharge Date 04/21/16 11:45am Disposition 01 HOME OR SELF-CARE Instructions/Education Provided Duloxetine (By mouth) Prescriptions See Medication Section Referrals Renato Cook ([facility]) - 04/29/16 Care Plan and Goals See Discharge Instructions Section Functional Status Query Response Date Recorded Level of Conscious Alert April 21, 2016 8:13am Oriented x4 Movement Moves extremities April 21, 2016 8:13am Weakness Allergies, Adverse Reactions, Alerts Allergen Type Severity Reaction Status Last Updated Lovastatin Allergy Unknown Active 04/19/16 Pravastatin Allergy Unknown Active 04/19/16 Simvastatin Allergy Unknown Active 04/19/16 Immunizations No immunization records. Vital Signs Acute Vital Signs Vital Response Date/Time Temperature (Fahrenheit) 97.6 04/21/2016 8:51am Pulse 93 bpm 04/21/2016 8:51am Respirations 18 04/21/2016 8:51am Height 5 ft 3 in Weight 162 lb Body Mass Index 28.0 kg/m^2 Results Laboratory Results Test Name Result Units Flags Reference Collection Result Date/Time Comments Date/Time Hemoglobin 8.3 g/dL L 12.0-15.5 12/26/2015 6:10pm 12/26/2015 6:39pm Pending Laboratory Results Test Name Collection Date/Time Procedures Procedure Status Date Provider(s) ROUTINE VENIPUNCTURE Completed 12/26/15 HEMOGLOBIN Completed 12/26/15 RBC ANTIBODY SCREEN Completed 12/26/15 BLOOD TYPING SEROLOGIC ABO Completed 12/26/15 BLOOD TYPING SEROLOGIC RH(D) Completed 12/26/15 COMPATIBILITY TEST SPIN Completed 12/26/15 DXA BONE DENSITY AXIAL Completed 03/24/16 URINALYSIS AUTO W/O SCOPE Completed 04/03/16 MICROSCOPIC EXAM OF URINE Completed 04/03/16 URINE BACTERIA CULTURE Completed 04/03/16 Encounters Encounter Location Arrival/Admit Date Discharge/Depart Date Attending Provider Discharged Edd 04/19/16 7:07pm 04/21/16 11:45am KYLIE BHAKTA [facility] ([facility] Hospital H Registered Edd 04/03/16 4:14pm [facility] Tito JACKSON Registered Edd 03/24/16 10:24am [facility] Umesh Discharged Edd 12/26/15 6:10pm 03/25/16 11:59pm [facility] SIXTO EARL Recent Diagnosis Cystitis Dysuria SEPSIS Urinary frequency
--- OUTSIDE RECORDS SUMMARY | 2017-06-07 10:25 | External Medical Summary | Continuity of Care Document ---
:1940 Author Organization [facility] Care Team Providers Name Role Phone SIXTO COOK Unavailable Unavailable Insurance Providers Payer Name Policy Number Subscriber Name Relationship Medicare A And B [id number] Irena Hernández 18 Self / Same As Patient Blue [employer] Supp [id number] Irena Hernández 18 Self / Same As Patient Advance Directives Directive Response Recorded Date/Time Advanced Directives Unknown 10/13/16 1:29pm Problems Active Problems Medical Problem Onset Date Status Acute urinary retention Unknown Acute Acute urinary tract infection 08/29/2013 Acute Altered mental status Unknown Acute Anemia Unknown Acute Back pain Unknown Acute Chest pain Unknown Acute Chronic pain syndrome Unknown Acute Constipation by delayed colonic transit [...] ORAL As Needed 05/27/15 400 Mg/5 Ml Ferrous Sulfate 325 325 Mg ORAL Twice A Day With 04/19/16 Mg Meals Metformin Hcl 1,000 Mg ORAL Daily 04/20/16 (Glucophage) 500 Mg Lisinopril 10 Mg ORAL Daily 04/20/16 (Zestril) 10 Mg Hydrocodone 1 Ea ORAL Every 6 Hours as 60 04/20/16 Bit/Acetaminophen 1 needed for Pain Each Acetaminophen 1,000 Mg ORAL Daily as needed 04/20/16 (Tylenol) 500 Mg for Pain Ondansetron Hcl 4 4-8 Mg ORAL Every 4-6 Hrs as 10/15/16 Mg needed for Nausea/Vomiting Omeprazole 40 Mg 40 Mg ORAL Daily@0700 10/15/16 Gabapentin 300 Mg ORAL Twice A Day 10/15/16 (Neurontin) 300 Mg Duloxetine Hcl 30 30 Mg ORAL Daily 10/15/16 Mg Aspirin/Caffeine 1 2 Tab ORAL Three Times A 10/15/16 Each Day as needed for Pain Past Home Medications Medication Directions Ordered Status [...] Sodium (Protonix) 40 Mg Daily@07 05/28/15 Discontinued Tablet.dr, 40 Mg Oral Lubiprostone 24 Mcg Capsule, 24 Mcg Daily 05/28/15 Discontinued Oral Ciprofloxacin 500 Mg Tablet, 500 Mg Twice A Day 10/13/15 Discontinued Hydromorphone Hcl 4 Mg Tab, 4 Mg As Needed as needed for 10/13/15 Discontinued Oral Pain Aspirin 81 Mg Tablet.dr, 81 Mg Oral Daily 01/10/16 Discontinued Lisinopril/Hydrochlorothiazide 1 Daily 01/10/16 Discontinued Each Tablet, 1 Each Oral Duloxetine Hcl 30 Mg Capsule., 30 Daily 04/19/16 Discontinued Mg Oral Cyclobenzaprine Hcl 10 Mg Tablet, Every 8HRS as needed for 04/19/16 Discontinued 5-10 Mg Oral Pain Alendronate Sodium 70 Mg Tablet, 70 Weekly 04/20/16 Discontinued Mg Oral Duloxetine Hcl 30 Mg Capsule., 30 Daily 04/21/16 Discontinued Mg Oral Social History Social History Problem Response Recorded Date/Time Onset Date Status 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 Plan of Care Discharge Date 10/16/16 2:46pm Prescriptions See Medication Section Functional Status Query Response Date Recorded Level of Conscious Alert October 16, 2016 8:00am Oriented x4 Lethargic Movement Moves extremities October 16, 2016 8:00am Weakness Allergies, Adverse Reactions, Alerts Allergen Type Severity Reaction Status Last Updated Lovastatin Allergy Unknown Active 04/19/16 Pravastatin Allergy Unknown Active 04/19/16 Simvastatin Allergy Unknown Active 04/19/16 Immunizations No immunization records. Vital Signs Acute Vital Signs Vital Response Date/Time Temperature (Fahrenheit) 97.9 10/16/2016 1:54pm Pulse 83 bpm 10/16/2016 1:54pm Respirations 18 10/16/2016 1:54pm Height 5 ft 2 in Weight 153 lb Body Mass Index 28.0 kg/m^2 Results Pending Laboratory Results Test Name Collection Date/Time Procedures Procedure Status Date Provider(s) ROUTINE VENIPUNCTURE Completed 10/13/16 COMPREHEN METABOLIC PANEL Completed 10/13/16 URINALYSIS AUTO W/O SCOPE Completed 10/13/16 MICROSCOPIC EXAM OF URINE Completed 10/13/16 ASSAY OF NATRIURETIC PEPTIDE Completed 10/13/16 ASSAY OF TROPONIN QUANT Completed 10/13/16 COMPLETE CBC W/AUTO DIFF WBC Completed 10/13/16 ELECTROCARDIOGRAM TRACING Completed 10/13/16 EMERGENCY DEPT VISIT Completed 10/13/16 Completed 10/13/16 Encounters Encounter Location Arrival/Admit Date Discharge/Depart Date Attending Provider Departed Edd 10/15/16 3:52pm 10/16/16 2:46pm [facility] JAZ Francis MD Care Registered Edd 10/13/16 1:33pm BRADY HAN Emergency Room [facility] Addi JACKSON
--- OUTSIDE RECORDS SUMMARY | 2017-06-07 10:25 | External Medical Summary | Summary of Care ---
:1940 Author Name Sean Taylor M.D. Address [address], [place] [id number] Care Team Providers Name Role Phone Sean [...] MRSA [id number] Ordered:11-Sep-2014 HEMOGLOBIN A1C 3507 Ordered:11-Sep-2014 ORTHO SPINE [...] ml/min Range: >60 (Better) EST GFR, NON-AFR VIET[place]ESE 60 ml/min (Below Range: >60 low threshold) Comments: EST GFR is reported in ml/min per 1.73 m2 of body surface area. For -Malagasy, please multiple result by 1.2.----- GLUCOSE 89 [...]
--- OUTSIDE RECORDS SUMMARY | 2017-06-07 10:25 | External Medical Summary | Summary of Care ---
:1940 Author Name Sean Taylor M.D. Address [address] [place], [place] [id number] Care Team Providers Name Role Phone Sean [...] Active Lumbar radiculopathy (724.4, M54.16) Status: Active Degenerative disc disease, lumbar (722.52, [...]
--- OUTSIDE RECORDS SUMMARY | 2017-06-07 10:26 | External Medical Summary | Summary of Care ---
:1940 Author Name Jeffry Kennedy M.D. Address [address] [place] [address] Care Team Providers Name Role Phone Outside, [...] of Back Surgery History of Bladder Cystectomy ORTHO SPINE LUMBAR ( 2 VIEWS ONLY) Ordered:22-Aug-2014 MYELOGRAM LUMBAR Ordered:22-Aug-2014 CT L Spine Post Myelogram Ordered:22-Aug-2014 Immunization [...] smoker Vital Signs Date Test Result Details 22-Aug-2014 16:05 BP Systolic 104 mm[Hg] Status: BP Diastolic 66 mm[Hg] Status: Heart Rate 75 /min Status: Respiration Rate 20 /min Status: Weight 188 lb Status: Height 63 in Status: Body Mass Index Calculated 33.3 kg/m2 Status: Body Surface Area Calculated 1.88 m2 Status: Results Date Description Value Details Results not documented Plan of Care Planned Observations Name Dates Details Planned Goals not documented Goal Planned Encounters Appointment; Provider: Juanpablo Forte On 28-Aug-2014 09:30 Instructions Instructions not documented Encounters Appointment; Jeffry Kennedy On 22-Aug-2014 Encounter Diagnosis: Problem not documented 16:00 Appointment; Juanpablo Forte On 22-Feb-2014 Encounter Diagnosis: Problem not documented 06:00 Appointment; Juanpablo Forte On 21-Feb-2014 Encounter Diagnosis: Problem not documented 11:00
--- OUTSIDE RECORDS SUMMARY | 2017-06-07 10:26 | External Medical Summary | Summary of Care ---
:1940 Author Name Jeffry Kennedy M.D. Address [address] [place] [address] Care Team Providers Name Role Phone Outside, [...]
--- OUTSIDE RECORDS SUMMARY | 2017-06-07 10:26 | External Medical Summary | Continuity of Care Document ---
:1940 Author Organization [facility] Care Team Providers Name Role Phone SIXTO COOK Unavailable Unavailable Insurance Providers Payer Name Policy Number Subscriber Name Relationship Medicare A And B [id number] Irena Hernández 18 Self / Same As Patient Blue Cross [facility] Supp [id number] Irena Hernández 18 Self / Same As Patient Advance Directives Directive Response Recorded Date/Time Advanced Directives No 10/13/15 7:24am Chief Complaint and Reason for Visit Chief Complaint Genitourinary Complaint Reason for Visit Dysuria Problems Active Problems Medical Problem Onset Date [...] Unit ORAL Daily 05/27/15 1,000 Unit Magnesium Hydroxide 30 Ml ORAL As Needed 05/27/15 400 Mg/5 Ml Lisinopril (Zestril) 10 Mg ORAL Daily 05/27/15 10 Mg Ca Carb/Vit D3/Mag 1 Each ORAL Daily 05/27/15 Ox/Zn Oxide 1 Each Metformin Hcl 850 Mg ORAL Twice A Day 05/27/15 (Glucophage) 850 Mg With Meals Hydrocodone 1 Ea ORAL Every 3 Hours 60 05/28/15 Bit/Acetaminophen 1 as needed for Each Pain Pantoprazole Sodium 40 Mg ORAL Daily@07 30 05/28/15 (Protonix) 40 Mg Lubiprostone 24 Mcg 24 Mcg ORAL Daily 30 05/28/15 Ciprofloxacin 500 Mg 500 Mg Twice A Day 14 10/13/15 Hydromorphone Hcl 4 4 Mg ORAL As Needed 120 10/13/15 Mg Past Home Medications Medication Directions Ordered Status [...] Day 05/27/15 Discontinued Tablet, 500 Mg Oral Aspirin 81 Mg Tab.chew, 81 Mg Oral Daily 05/28/15 Discontinued Simvastatin (Zocor) 10 Mg Tablet, 10 Bedtime 05/28/15 Discontinued Mg Oral Fentanyl 25 Mcg/Hr Patch.td72, 25 Every 72 Hours 05/28/15 Discontinued Mcg Transdermal Social History Social History Problem Response Recorded Date/Time Onset Date Status Exposure to occupational hazards No 05/27/2015 4:08pm Query Response Start Date Stop Date Smoking Status Never smoker Hospital Discharge Instructions No hospital discharge instructions. Plan of Care Discharge Date 10/13/15 12:35pm Disposition 01 HOME OR SELF-CARE Condition at Discharge Stable Prescriptions See Medication Section Referrals SIXTO COOK - Additional Instructions/Education ED YAMILE if any worse. Follow up with Dr Ariza. Some of your test results may not be complete prior to your leaving the Emergency Department. The Emergency Department is not authorized to give test results over the phone. Please contact the doctor's office listed in this packet of information for your final results. Follow up with your primary care physician or return to the Emergency Department for worsening or worrisome symptoms. * Emergency Department phone number: [phone], x [phone]* MEDICAL RECORD If you need copies of your X-rays, call [phone]. If you need copies of your medical record, including lab results, a signed authorization for release of records will be required. A telephone call for release of Health Information is not allowed. BILLING Billing can sometimes be confusing and frustrating. To help avoid confusion in the future, please take a moment to acquaint yourself with the billing parties for services. SERVICE BILLING [employer] Emergency Room Services [facility] Physician Services [facility] X-rays [place] [facility] Patients will receive bills for services from the appropriate provider. If you have any questions about your [facility] bill, our staff will be happy to assist you. Please call [phone], and ask for the billing department. THANK YOU for choosing [facility] as your emergency care provider! Care Plan and Goals ~~Discharge Care Plan~~ Problem:PAINFUL URINATION & FREQ Goal: CONTINENCE & NON-PAINFUL URINATION Instructions: INCREASE ORAL WATER INTAKE. DECREASE CAFFIENE INTAKE. CONTINUE CURRENT ANTIBX FROM HOME. FOLLOW UP W/DR ARIZA Functional Status No functional status results. Allergies, Adverse Reactions, Alerts Allergen Type Severity Reaction Status Last Updated Lovastatin Allergy Unknown Active 10/13/15 Pravastatin Allergy Unknown Active 10/13/15 Simvastatin Allergy Unknown Active 10/13/15 Immunizations No immunization records. Vital Signs Acute Vital Signs Vital Response Date/Time Temperature (Fahrenheit) 98.9 10/13/2015 7:24am Pulse 93 bpm 10/13/2015 5:34pm Respirations 10/13/2015 5:34pm Height 5 ft 3 in Weight 180 lb Body Mass Index 32.0 kg/m^2 Results Laboratory Results Test Name Result Units Flags Reference Collection Result Comments Date/Time Date/Time White Blood Count 6.65 10^3uL 4.0-11.0 10/13/2015 10/13/2015 7:45am 8:27am Red Blood Count 3.29 10^6uL L 4.00-5.00 10/13/2015 10/13/2015 7:45am 8:27am Hemoglobin 8.1 g/dL L 12.0-15.5 10/13/2015 10/13/2015 7:45am 8:27am Hematocrit 26.00 % L 35.00-45.00 10/13/2015 10/13/2015 7:45am 8:27am Mean Corpuscular 79 FL L 80-100 10/13/2015 10/13/2015 Volume 7:45am 8:27am Mean Corpuscular 24.6 PG L 26.0-34.0 10/13/2015 10/13/2015 Hemoglobin 7:45am 8:27am Mean Corpuscular 31.2 g/dL 31.0-37.0 10/13/2015 10/13/2015 Hemoglobin Concent 7:45am 8:27am Red Cell 17.6 % H 11.8-15.6 10/13/2015 10/13/2015 Distribution Width 7:45am 8:27am Platelet Count 412 10^3uL 150-450 10/13/2015 10/13/2015 7:45am 8:27am Mean Platelet 9.5 FL 6.0-9.5 10/13/2015 10/13/2015 Volume 7:45am 8:27am Differential Total 100 10/13/2015 10/13/2015 Cells Counted 7:45am 8:28am Segmented 69 % H 51-67 10/13/2015 10/13/2015 Neutrophils % 7:45am 8:28am Band Neutrophils % 4 % 0-6 10/13/2015 10/13/2015 7:45am 8:28am Lymphocytes % 17 % L 20-46 10/13/2015 10/13/2015 (Manual) 7:45am 8:28am Monocytes % 8 % 3-11 10/13/2015 10/13/2015 (Manual) 7:45am 8:28am Eosinophils % 2 % 0-4 10/13/2015 10/13/2015 (Manual) 7:45am 8:28am Basophils % 0 % 0-2 10/13/2015 10/13/2015 (Manual) 7:45am 8:28am Neutrophils # 4.6 # 10/13/2015 10/13/2015 7:45am 8:28am Absolute Band 0.2 # 10/13/2015 10/13/2015 Neutrophils 7:45am 8:28am Lymphocytes # 1.1 # 10/13/2015 10/13/2015 7:45am 8:28am Monocytes # 0.5 # 10/13/2015 10/13/2015 7:45am 8:28am Eosinophils # 0.1 # 10/13/2015 10/13/2015 7:45am 8:28am Basophils # 0.0 # 10/13/2015 10/13/2015 (Manual) 7:45am 8:28am Blood Morphology SEE NORMAL 10/13/2015 10/13/2015 Comment REFERENCE 7:45am 8:28am Hypochromasia SLIGHT 10/13/2015 10/13/2015 7:45am 8:28am Anisocytosis SLIGHT 10/13/2015 10/13/2015 7:45am 8:28am Microcytosis SLIGHT 10/13/2015 10/13/2015 7:45am 8:28am Urine Collection CATHETER 10/13/2015 10/13/2015 Type 7:45am 8:29am Urine Color Yellow 10/13/2015 10/13/2015 7:45am 8:26am Urine Clarity Slightly 10/13/2015 10/13/2015 Cloudy 7:45am 8:26am Urine pH 7.0 5.0 - 8.0 10/13/2015 10/13/2015 7:45am 8:26am Urine Specific 1.015 1.005-1.030 10/13/2015 10/13/2015 [place] 7:45am 8:26am Urine Protein Negative Negative 10/13/2015 10/13/2015 7:45am 8:26am Urine Glucose (UA) Negative Negative 10/13/2015 10/13/2015 7:45am 8:26am Urine RBC (Auto) Negative Negative 10/13/2015 10/13/2015 7:45am 8:26am Urine Ketones Trace H Negative 10/13/2015 10/13/2015 7:45am 8:26am Urine Nitrite Negative Negative 10/13/2015 10/13/2015 7:45am 8:26am Urine Bilirubin Negative Negative 10/13/2015 10/13/2015 7:45am 8:26am Urine Urobilinogen 0.2 mg/dL 0.2-1.0 10/13/2015 10/13/2015 7:45am 8:26am Urine Leukocyte Negative Negative 10/13/2015 10/13/2015 Esterase 7:45am 8:26am Sodium Level 141 mmol/L 135-150 10/13/2015 10/13/2015 7:45am 8:50am Potassium Level 3.8 mmol/L 3.5-5.1 10/13/2015 10/13/2015 7:45am 8:50am Chloride Level 107 mmol/L 98-108 10/13/2015 10/13/2015 7:45am 8:50am Carbon Dioxide 23 mmol/L 22-29 10/13/2015 10/13/2015 Level 7:45am 8:50am Anion Gap 15.2 MEQ/L H 3-15 10/13/2015 10/13/2015 7:45am 8:50am Blood Urea 16 mg/dL 7-18 10/13/2015 10/13/2015 Nitrogen 7:45am 8:50am Creatinine 0.77 mg/dL 0.6-1.2 10/13/2015 10/13/2015 7:45am 8:50am BUN/Creatinine 21 H 10-20 10/13/2015 10/13/2015 Ratio 7:45am 8:50am Estimat Glomerular 88.9 10/13/2015 10/13/2015 Filtration Rate 7:45am 8:50am Estimated GFR 73.5 10/13/2015 10/13/2015 (Non- 7:45am 8:50am French Glucose Level 107 mg/dL # 70-110 10/13/2015 10/13/2015 7:45am 8:50am Calculated 274 mosm/L L 280-300 10/13/2015 10/13/2015 Osmolality 7:45am 8:50am Calcium Level 9.2 mg/dL 8.8-10.8 10/13/2015 10/13/2015 7:45am 8:50am Calcium/Ionized 4.2 mg/dL 3.8-4.6 10/13/2015 10/13/2015 Calcium Ratio 7:45am 8:50am Total Bilirubin 0.5 mg/dL 0.1-1.0 10/13/2015 10/13/2015 7:45am 8:50am Alkaline 59 U/L 38-126 10/13/2015 10/13/2015 Phosphatase 7:45am 8:50am Aspartate Amino 18 U/L 15-37 10/13/2015 10/13/2015 Transf (AST/SGOT) 7:45am 8:50am Alanine 23 U/L L 30-65 10/13/2015 10/13/2015 Aminotransferase 7:45am 8:50am (ALT/SGPT) Total Protein 6.7 g/dL 6.4-8.5 10/13/2015 10/13/2015 7:45am 8:50am Albumin 3.8 g/dL 3.4-5.0 10/13/2015 10/13/2015 7:45am 8:50am Albumin/Globulin 1.310 1.1-1.8 10/13/2015 10/13/2015 Ratio 7:45am 8:50am C-Reactive Protein < 0.50 mg/dL 0.0-0.9 10/13/2015 10/13/2015 7:45am 8:50am Stool Occult Blood NEGATIVE NEGATIVE 10/13/2015 10/13/2015 9:10am 10:15am Procedures No known history of procedures. Encounters Encounter Location Arrival/Admit Date Discharge/Depart Date Attending Provider Departed Edd 10/13/15 7:24am 10/13/15 12:35pm WILLIAM Emergency Room [facility] NONI Zheng MD Recent Diagnosis
--- OUTSIDE RECORDS SUMMARY | 2017-06-07 10:26 | External Medical Summary | Continuity of Care Document ---
:1940 Author Organization [facility] Care Team Providers Name Role Phone SIXTO COOK Unavailable Unavailable Insurance Providers Payer Name Policy Number Subscriber Name Relationship Medicare A And B [id number] Irena Hernández 18 Self / Same As Patient Blue Cross Mcr Supp [id number] Irena Hernández 18 Self / Same As Patient Advance Directives Directive Response Recorded Date/Time Advanced Directives No 01/13/16 11:12am Problems Active Problems Medical Problem Onset Date Status Acute urinary retention Unknown Acute Acute urinary tract infection 08/29/2013 Acute Back pain Unknown Acute Chest pain Unknown Acute Constipation by delayed colonic transit Unknown Acute Cystitis ~03/06/2015 Acute Diabetes type 2, uncontrolled Unknown Acute Dysuria 05/14/2012 Acute Dysuria 10/13/2015 Acute Endoscopy of urinary bladder 06/02/2013 Acute Hiatal hernia Unknown Acute Hx of bladder cancer Unknown Acute Injury of foot ~03/24/2014 Acute SEPSIS 11/21/2012 Acute Urinary frequency Unknown Acute Medications Current Home Medications Medication Dose Units Route Directions Days/Qty Instructions Start Date Citalopram 40 Mg ORAL Daily 01/01/14 Hydrobromide (Celexa) 40 Mg Magnesium Hydroxide 30 Ml ORAL As Needed 05/27/15 400 Mg/5 Ml Ca Carb/Vit D3/Mag 1 Each ORAL Daily 05/27/15 Ox/Zn Oxide 1 Each Metformin Hcl 850 Mg ORAL Twice A Day With 05/27/15 (Glucophage) 850 Mg Meals Hydrocodone 1 Ea ORAL Every 3 Hours as 60 05/28/15 Bit/Acetaminophen 1 needed for Pain Each Pantoprazole Sodium 40 Mg ORAL Daily@07 30 05/28/15 (Protonix) 40 Mg Hydromorphone Hcl 4 4 Mg ORAL As Needed 120 10/13/15 Mg Aspirin 81 Mg 81 Mg ORAL Daily 01/10/16 Lisinopril/Hydrochl 1 Each ORAL Daily 01/10/16 orothiazide 1 Each Past Home Medications Medication Directions Ordered Status [...] Tablet, Daily 05/27/15 Discontinued 10 Mg Oral Potassium Gluconate 595 Mg Tablet, Daily [...] Every 72 Hours 05/28/15 Discontinued Mcg Transdermal Lubiprostone 24 Mcg Capsule, 24 Mcg Daily 05/28/15 Discontinued Oral Ciprofloxacin 500 Mg Tablet, 500 Mg Twice A Day 10/13/15 Discontinued Social History Social History Problem Response Recorded Date/Time Onset Date Status Exposure to occupational hazards No 05/27/2015 4:08pm Query Response Start Date Stop Date Smoking Status Never smoker Hospital Discharge Instructions Current inpatient/outpatient. Discharge instructions are currently unavailable. Plan of Care Prescriptions Functional Status No functional status results. Allergies, Adverse Reactions, Alerts Allergen Type Severity Reaction Status Last Updated Lovastatin Allergy Unknown Active 10/15/15 Pravastatin Allergy Unknown Active 10/15/15 Simvastatin Allergy Unknown Active 10/15/15 Immunizations No immunization records. Vital Signs No known vital signs results. Results Laboratory Results Test Name Result Units Flags Reference Collection Result Date/Time Comments Date/Time Hemoglobin 8.3 g/dL L 12.0-15.5 12/26/2015 6:10pm 12/26/2015 6:39pm Procedures No known history of procedures. Encounters Encounter Location Arrival/Admit Date Discharge/Depart Date Attending Provider Registered Edd 03/24/16 10:24am [facility] Umesh Discharged Edd 12/26/15 6:10pm 03/25/16 11:59pm [facility] SIXTO EARL
--- OUTSIDE RECORDS SUMMARY | 2017-06-07 10:26 | External Medical Summary | Continuity of Care Document ---
:1940 Author Organization [facility] Care Team Providers Name Role Phone SIXTO COOK Unavailable Unavailable Insurance Providers Payer Name Policy Number Subscriber Name Relationship Medicare A And B [id number] Irena Hernández 18 Self / Same As Patient Blue Cross Mcr Supp [id number] Irena Hernández 18 Self / Same As [...] discharge instructions. Plan of Care Discharge Date 01/13/16 12:50pm Prescriptions See Medication Section Functional Status No functional status results. Allergies, Adverse Reactions, Alerts Allergen Type Severity Reaction Status Last Updated Lovastatin Allergy Unknown Active 10/15/15 Pravastatin Allergy Unknown Active 10/15/15 Simvastatin Allergy Unknown Active 10/15/15 Immunizations No immunization records. Vital Signs Acute Vital Signs Vital Response Date/Time Temperature (Fahrenheit) 97.8 01/13/2016 12:46pm Pulse 104 bpm 01/13/2016 12:46pm Respirations 18 01/13/2016 12:46pm Height 5 ft 3 in Weight 185 lb Body Mass Index 32.0 kg/m^2 Results Laboratory Results Test Name Result Units Flags Reference Collection Result Comments Date/Time Date/Time Urine Collection RANDOM 01/13/2016 01/13/2016 Type VOIDED 11:00am 11:59am Urine Color Yellow 01/13/2016 01/13/2016 11:00am 11:59am Urine Clarity Clear 01/13/2016 01/13/2016 11:00am 11:59am Urine pH 5.5 5.0 - 8.0 01/13/2016 01/13/2016 11:00am 11:59am Urine Specific >=1.030 1.005-1.030 01/13/2016 01/13/2016 [place] 11:00am 11:59am Urine Protein Negative Negative 01/13/2016 01/13/2016 11:00am 11:59am Urine Glucose Negative Negative 01/13/2016 01/13/2016 (UA) 11:00am 11:59am Urine RBC (Auto) Negative Negative 01/13/2016 01/13/2016 11:00am 11:59am Urine Ketones Negative Negative 01/13/2016 01/13/2016 11:00am 11:59am Urine Nitrite Negative Negative 01/13/2016 01/13/2016 11:00am 11:59am Urine Bilirubin Negative Negative 01/13/2016 01/13/2016 11:00am 11:59am Urine 0.2 mg/dL 0.2-1.0 01/13/2016 01/13/2016 Urobilinogen 11:00am 11:59am Urine Leukocyte Negative Negative 01/13/2016 01/13/2016 Esterase 11:00am 11:59am Pending Laboratory Results Test Name Collection Date/Time Procedures Procedure Status Date Provider(s) COMPREHEN METABOLIC PANEL Completed 12/26/15 LIPID PANEL Completed 12/26/15 ASSAY OF FERRITIN Completed 12/26/15 GLYCOSYLATED HEMOGLOBIN TEST Completed 12/26/15 ASSAY OF IRON Completed 12/26/15 IRON BINDING TEST Completed 12/26/15 ASSAY THYROID STIM HORMONE Completed 12/26/15 COMPLETE CBC W/AUTO DIFF WBC Completed 12/26/15 Encounters Encounter Location Arrival/Admit Date Discharge/Depart Date Attending Provider Departed Edd 01/13/16 10:45am 01/13/16 12:50pm [facility] Tito Marcano Registered Edd 12/26/15 6:10pm [facility] SIXTO EARL Registered Edd 12/26/15 9:43am [facility] SIXTO EARL Recent Diagnosis Hx of bladder cancer
--- OUTSIDE RECORDS SUMMARY | 2017-06-07 10:26 | External Medical Summary | Summary of Care ---
:1940 Author Name Sean Taylor M.D. 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 Script must last 30 days. Quantity: 120 Refills: 0 Juan A Taylor M.D. Started 15-Feb-2015 ActiveEmbeda 20-0.8 MG Oral Capsule Extended Release [...]
--- OUTSIDE RECORDS SUMMARY | 2017-06-07 10:26 | External Medical Summary | Summary of Care ---
:1940 Author Name Sean Taylor M.D. Address [address] [place], [place] [id number] Care Team Providers Name Role Phone Sean [...] ml/min Range: >60 (Better) EST GFR, NON-AFR TAIWANESE 60 ml/min (Below Range: >60 low threshold) Comments: EST GFR is reported in ml/min per 1.73 m2 of body surface area. For -[place], please multiple result by 1.2.----- GLUCOSE 89 [...]
--- OUTSIDE RECORDS SUMMARY | 2017-06-07 10:26 | External Medical Summary | Continuity Of Care Document ---
:1940 Author Organization [facility] Address [address] [place] [address] Phone Care Team Providers Name Role Phone UNASSIGNED, ED PHYSICIAN Unavailable Unavailable FRANDY RAMIREZ MD Attending Provider MICHELINE GARCÍA Primary Care Provider Results Lab Results Visit/Account #[id number] (October 21, 2015 6:10pm - October 21, 2015 7:44pm) Test Result Date/Time CREATININE,POINT OF CARE POC CREATININE(0.6-1.3 MG/DL) 0.8 MG/DL October 21, 2015 6:21pm 68465-7: EST GLOMERULAR FILTRATION RATE(Greater than or equal to 60) Greater than 60 October 21, 2015 6:21pm POC LACTIC ACID VENOUS POC LACTIC ACID VENOUS(0.90-1.70 MMOL/L) 1.02 MMOL/L October 21, 2015 6:18pm 61511-8: COMPLETE BLOOD COUNT WITH DIFF WHITE BLOOD COUNT(4.0-11.0 10E3/UL) 7.0 10E3/UL October 21, 2015 6:18pm RED BLOOD COUNT(4.00-5.20 10E6/UL) 3.41 10E6/UL October 21, 2015 6:18pm HEMOGLOBIN(12.0-16.0 G/DL) 8.1 G/DL October 21, 2015 6:18pm HEMATOCRIT(36.0-46.0 %) 28.0 % October 21, 2015 6:18pm MEAN CORPUSCULAR VOLUME(82.0-100.0 FL) 82.1 FL October 21, 2015 6:18pm 94228-9: MEAN CORPUSCULAR HEMOGLOBIN(26.0-34.0 PG) 23.8 PG October 21, 2015 6: 18pm MEAN CORPUSCULAR HGB CONC(31.5-36.5 G/DL) 28.9 G/DL October 21, 2015 6:18pm RED CELL DISTRIBUTION WIDTH(11.5-14.5 %) 18.4 % October 21, 2015 6:18pm 777-3: PLATELET COUNT(150-450 10E3/UL) 435 10E3/UL October 21, 2015 6:18pm MEAN PLATELET VOLUME(8.2-12.4 FL) 9.1 FL October 21, 2015 6:18pm 770-8: NEUTROPHILS % (AUTO)(40-70 %) 61 % October 21, 2015 6:18pm LYMPHOCYTES % (AUTO)(15-45 %) 26 % October 21, 2015 6:18pm 5905-5: MONOCYTES % (AUTO)(2-10 %) 8 % October 21, 2015 6:18pm 713-8: EOSINOPHILS % (AUTO)(0-6 %) 3 % October 21, 2015 6:18pm 706-2: BASOPHILS % (AUTO)(0-1 %) 1 % October 21, 2015 6:18pm 48620-5: IMMATURE GRANS % (AUTO)(0-0 %) 0 % October 21, 2015 6:18pm NUCLEATED RBCS (AUTO)(0-0 %) 0 % October 21, 2015 6:18pm 751-8: NEUTROPHILS # (AUTO)(2.5-7.5 10E3/UL) 4.3 10E3/UL October 21, 2015 6:18pm 08286-4: LYMPHOCYTES # (AUTO)(1.0-4.0 10E3/UL) 1.8 10E3/UL October 21, 2015 6: 18pm 742-7: MONOCYTES # (AUTO)(0.2-0.8 10E3/UL) 0.6 10E3/UL October 21, 2015 6:18pm 711-2: EOSINOPHILS # (AUTO)(0.0-0.4 10E3/UL) 0.2 10E3/UL October 21, 2015 6:18pm 704-7: BASOPHILS # (AUTO)(0.0-0.2 10E3/UL) 0.1 10E3/UL October 21, 2015 6:18pm IMMATURE GRANS # (AUTO)(0.0-0.0 10E3/UL) 0.0 10E3/UL October 21, 2015 6:18pm DIFF TYPE AUTOMATED October 21, 2015 6:18pm UA WITH SCREEN FOR CULTURE 5778-6: COLOR,URINE STRAW October 21, 2015 6:18pm 78124-1: CLARITY,URINE CLEAR October 21, 2015 6:18pm GLUCOSE, URINE(NEGATIVE MG/DL) NEGATIVE MG/DL October 21, 2015 6:18pm URINE BILIRUBIN(NEGATIVE) NEGATIVE October 21, 2015 6:18pm KETONES,URINE(NEGATIVE MG/DL) NEGATIVE MG/DL October 21, 2015 6:18pm URINE SPECIFIC GRAVITY(1.001-1.035) 1.020 October 21, 2015 6:18pm 69041-8: URINE BLOOD(NEGATIVE) NEGATIVE October 21, 2015 6:18pm 2756-5: URINE PH(5.0-9.0) 7.5 October 21, 2015 6:18pm URINE PROTEIN(Less than 20 MG/DL) NEGATIVE MG/DL October 21, 2015 6:18pm 55686-8: URINE UROBILINOGEN(0.2-1.0 MG/DL) 0.2 MG/DL October 21, 2015 6:18pm URINE NITRITE(NEGATIVE) NEGATIVE October 21, 2015 6:18pm 5799-2: LEUKOCYTE ESTERASE ,URINE(NEGATIVE) NEGATIVE October 21, 2015 6:18pm 630-4: URINE CULTURE NOT INDICATED October 21, 2015 6:18pm URINE MICROSCOPIC REQUIRED NO October 21, 2015 6:18pm 17098-1: COMPLETE METABOLIC PROFILE GLUCOSE(70-110 MG/DL) 90 MG/DL October 21, 2015 6:18pm BLOOD UREA NITROGEN(6-20 MG/DL) 14 MG/DL October 21, 2015 6:18pm CREATININE(0.50-1.20 MG/DL) 0.74 MG/DL October 21, 2015 6:18pm 34016-5: EST GLOMERULAR FILTRATION RATE(Greater than or equal to 60) Greater than or equal to 60 October 21, 2015 6:18pm Result Comments: If the patient is of -[place] descent/extraction multiply the eGFR value by 1.212 to obtain the actual eGFR. >=60 mg/dL Normal 30-59 mg/dL Moderate Kidney Disease 15-29 mg/dL Severe Kidney Disease <15 mg/dL Kidney Failure BUN CREATININE RATIO(10.0-20.0 RATIO) 19.0 RATIO October 21, 2015 6:18pm SODIUM(135-145 MMOL/L) 137 MMOL/L October 21, 2015 6:18pm POTASSIUM(3.6-5.0 MMOL/L) 4.1 MMOL/L October 21, 2015 6:18pm CHLORIDE(101-111 MMOL/L) 105 MMOL/L October 21, 2015 6:18pm 2028-9: CO2(21-31 MMOL/L) 25 MMOL/L October 21, 2015 6:18pm ANION GAP(8-18) 11 October 21, 2015 6:18pm OSMO CALCULATED(270.0-290.0) 273.8 October 21, 2015 6:18pm CALCIUM(8.5-10.5 MG/DL) 8.9 MG/DL October 21, 2015 6:18pm BILIRUBIN,TOTAL(0.1-1.2 MG/DL) 0.4 MG/DL October 21, 2015 6:18pm ALKALINE PHOSPHATASE(42-121 IU/L) 54 IU/L October 21, 2015 6:18pm ASPARTATE AMINO TRANSFERASE(10-42 IU/L) 20 IU/L October 21, 2015 6:18pm ALANINE AMINOTRANSFERASE(10-60 IU/L) 11 IU/L October 21, 2015 6:18pm TOTAL PROTEIN(6.4-8.2 G/DL) 6.8 G/DL October 21, 2015 6:18pm ALBUMIN(3.5-5.5 G/DL) 4.0 G/DL October 21, 2015 6:18pm GLOBULIN(2.4-3.6) 2.8 October 21, 2015 6:18pm ALBUMIN/GLOBULIN RATIO(0.9-1.8 RATIO) 1.4 RATIO October 21, 2015 6:18pm 3040-3: LIPASE 3040-3: LIPASE(22-51 U/L) 21 U/L October 21, 2015 6:18pm Microbiology Results Visit/Account #[id number] (October 21, 2015 6:10pm - October 21, 2015 7:44pm) Procedure Result BLOOD CULTURE BLOOD CULTURE Result Instance On October 21, 2015 6:18pm Source: BLOOD Special Result Comments: No growth Result Instance On October 21, 2015 6:29pm Source: BLOOD Special Result Comments: No growth Allergies and Adverse Reactions Allergies and Adverse Reactions Patient Unit Number: [id number] Agent Type Reaction Severity Status [id number] REDUCTASE INHIBITOR Drug Adverse Reaction muscle aching Moderate Active Problem List Problem List Visit/Account #[id number] (October 21, 2015 6:10pm - October 21, 2015 7:44pm) Acute Problems: Code/Condition Comments Documented Start Documented Resolved Code(s) Date Date Abdominal pain ICD10: R10.9 Abdominal pain ICD9: 789.00 Abdominal pain SNOMED: 14738170 Abdominal pain Constipation ICD10: K59.00 Constipation ICD9: 564.00 Constipation SNOMED: 41211999 Constipation Plan of Care Plan Of Care Visit/Account #[id number] (October 21, 2015 6:10pm - October 21, 2015 7:44pm) Patient Instructions Return if worse or any concern. Follow-up with your PCP within 48 hrs for further evaluation and care. Vital Signs Vital Signs Visit/Account #[id number] (October 21, 2015 6:10pm - October 21, 2015 7:44pm) Sign First Result Last Result Code(s) Temperature in Fahrenheit Temperature (Fahrenheit): 98 [degF] On October 21, 2015 6:08pm 8310-5 Body Temperature Weight in Kilograms Weight (Kilograms): 80 kg On October 21, 2015 6:08pm 3141- 9 Weight Measured 78834-1 Body weight measured in kilograms Functional Status Functional and Cognitive Status No Functional Status Data Medications Inpatient/Ordered Medications - Medications administered during hospital visit Visit/Account #[id number] (October 21, 2015 6:10pm - October 21, 2015 7:44pm) Medication Route Sig/Schedule Precondition/Indication Comments/ Instructions Codes IV Medication INTRAVEN .Q1H (Rate: 1000 MLS/HR Duration: 1 HR) Carriers: Carriers: Sodium Chloride 0.154 MEQ/ML Injectable Solution (RxNorm): 151386 NORMAL SALINE(SODIUM CHLORIDE) 1000 ML INJECTION NORMAL SALINE ( SODIUM CHLORIDE) ND: 30891919046 Dose: 1000 ML ZOFRAN INJ(ONDANSETRON HCL) 4 MG/2 ML INJECTION INTRAVEN NOW Label Comments: Ondansetron 2 MG/ML Injectable Solution (RxNorm): 655089 Dose: 2 ML SLOW IV PUSH MAY INCREASE FALL RISK ZOFRAN INJ (ONDANSETRON HCL) NDC: 29018873672 Discharge Medications - Medications that patient should continue to take. Review with physician Visit/Account #[id number] (October 21, 2015 6:10pm - October 21, 2015 7:44pm) Medication Route Sig/Schedule Precondition/Indication Comments/ Instructions Codes ONDansetron(ONDANSETRON) 4 MG TABLET ORAL EVERY 8 HOURS NAUSEA Ondansetron 4 MG Oral Tablet (RxNorm): 439199 Dose: 4 MG ONDansetron (ONDANSETRON) NDC: 64195696930 GOLYTELY SOLUTION(PEG 3350/NA SULF,BICARB,CL/KCL) 4000 ML SOLN.RECON ORAL DAILY POLYETHYLENE GLYCOL 3350 59 MG/ML / Potassium Chloride 0.01 MEQ/ML / Sodium Bicarbonate 0.02 (RxNorm): 111383 Dose: 1000 ML GOLYTELY SOLUTION (PEG 3350/NA SULF,BICARB,CL/KCL) NDC: 54753010013 History Of Encounters Encounters Visit/Account #[id number] (October 21, 2015 6:10pm - October 21, 2015 7:44pm) Account Physican Of Reason For Visit Diagnosis Start Stop Date/Time Status Record Visit Date/Time ER FRANDY RAMIREZ MD "FEEL LIKE BLADDER TROUBLE" R10.30: LOWER ABDOMINAL PAIN, UNSPECIFIED ICD10 October 21, 2015 6:10pm October 21, 2015 7:44pm History of Procedures Procedure List No procedures recorded. Discharge Instructions Discharge Instructions Visit/Account #[id number] (October 21, 2015 6:10pm - October 21, 2015 7:44pm) DISCHARGE INSTRUCTIONS Physician Documentation Social History Social History No Social History Data. Immunizations Immunizations Patient Unit Number: [id number] Immunizations No immunizations recorded.
--- OUTSIDE RECORDS SUMMARY | 2017-06-07 10:26 | External Medical Summary | Summary of Care ---
:1940 Author Name Sean Taylor M.D. Address [address], [place] [address] Care Team Providers Name Role Phone Sean [...] Exam Date: 10: 12Dictation Date: 12:28 10-Sep-2014 MYELOGRAM LUMBAR Comments: Exam Date: 10: 11Dictation Date: 11:12 11:12 XF MYELOGRAM LUMBAR (Better) 12-Sep-2014 Comprehensive Metabolic 13:23 Panel 1212 SODIUM [...] ml/min (Better) Range: >60 EST GFR, NON-AFR MICRONESIAN 60 ml/min (Below low Range: >60 threshold) [...] Microbiology results Comments: RESULT:NEGATIVE for MRSA----- (Better) Plan of Care Planned Observations Name [...]
--- OUTSIDE RECORDS SUMMARY | 2017-06-07 10:27 | External Medical Summary | Summary of Care ---
:1940 Author Name Sean Taylor M.D. Address [address] [place], [place] [phone] Care Team Providers Name Role Phone Sean [...] ml/min (Better) Range: >60 EST GFR, NON-AFR SUDANESE 60 ml/min (Below low Range: >60 threshold) Comments: EST GFR is reported in ml/min per 1.73 m2 of body surface area. For -[place], please multiple result by 1.2.----- GLUCOSE 89 [...]
--- OUTSIDE RECORDS SUMMARY | 2017-06-07 10:27 | External Medical Summary | Summary of Care ---
:1940 Author Name Jeffry Kennedy M.D. 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 For -[place], please multiple result by 1.2.----- GLUCOSE 89 [...]
--- OUTSIDE RECORDS SUMMARY | 2017-06-07 10:27 | External Medical Summary | Continuity of Care Document ---
:1940 Author Organization [facility] Care Team Providers Name Role Phone SIXTO COOK Unavailable Unavailable Insurance Providers Payer Name Policy Number Subscriber Name Relationship Medicare A And B [id number] Irena Hernández 18 Self / Same As Patient Blue Cross [facility] Supp [id number] Irena Hernández 18 Self / Same As Patient Advance Directives Directive Response Recorded Date/Time Advanced Directives No 03/06/15 2:22pm Chief Complaint and Reason for Visit Chief Complaint Genitourinary Complaint Reason for Visit Cystitis Problems Active Problems Medical Problem Onset Date Status Acute urinary tract infection 08/29/2013 Acute Cystitis Unknown Acute Dysuria 05/14/2012 Acute Endoscopy of urinary bladder 06/02/2013 Acute Injury of foot ~03/24/2014 Acute SEPSIS 11/21/2012 Acute Medications Current Home Medications Medication Dose Units Route Directions Days/Qty Instructions Start Date Metformin Hcl 1,000 850 Mg ORAL Twice A Day for 05/14/12 Mg Diabetes Citalopram 40 Mg ORAL Daily 01/01/14 Hydrobromide (Celexa) 40 Mg Lisinopril/Hydrochlor 1 Each ORAL Daily 07/20/14 othiazide 1 Each Ciprofloxacin 500 Mg 500 Mg ORAL Twice A Day 10 03/06/15 Phenazopyridine Hcl 200 Mg ORAL Three Times A 9 03/06/15 200 Mg Day as needed for Pain Acetaminophen/Hydroco 1-2 Tab ORAL Every 6 Hours 30 03/06/15 done Bitart 1 Each as needed for Pain Past Home Medications Medication Directions Ordered Status Lisinopril (Zestril) 10 Mg Tablet, Daily 05/14/12 Discontinued 10 Mg Oral Hydrochlorothiazide 12.5 Mg Cap, Daily 05/14/12 Discontinued 12.5 Mg Oral Trimethoprim/Sulfamethoxazole 1 Ea Twice A [...] 1 Tab Oral Pain Aspirin 81 Mg Tablet.dr 81 Mg Oral Daily 07/20/14 Discontinued Social History No social history. Hospital Discharge Instructions No hospital discharge instructions. Plan of Care Discharge Date 03/06/15 4:25pm Disposition 01 HOME OR SELF-CARE Condition at Discharge Stable Instructions/Education Provided Urinary Tract Infection in Women (ED) Prescriptions See Medication Section Referrals SIXTO COOK - Additional Instructions/Education Call Dr. De La Paz's office tomorrow to arrange follow up care. Take the antibiotics and Pyridium as prescribed, and the pain medication as needed. Return to the ER if you get worse. Some of your test results may not [...] worrisome symptoms. * Emergency Department phone number: [phone], x [phone]* MEDICAL RECORD If you need copies of your X-rays, call [phone] x [phone]. If you need copies of [...] the billing parties for services. SERVICE [employer]ILLING [employer] Emergency Room Services [facility] Physician Services [facility] X-rays [place] [facility] Patients will receive bills for services from the appropriate provider. If you have any questions about your [facility] bill, our staff will be happy to assist you. Please call [phone], and ask for the billing department. THANK YOU for choosing [facility] as your emergency care provider! Care Plan and Goals URINARY TRACT INF Functional Status No functional status results. Allergies, Adverse Reactions, Alerts Allergen Type Severity Reaction Status Last Updated Lovastatin Allergy Unknown Active 03/26/14 Pravastatin Allergy Unknown Active 03/26/14 Simvastatin Allergy Unknown Active 03/26/14 Immunizations No immunization records. Vital Signs Acute Vital Signs Vital Response Date/Time Temperature (Fahrenheit) 98.2 03/06/2015 4:58pm Pulse 91 bpm 03/06/2015 4:58pm Respirations 18 03/06/2015 4:58pm Height 5 ft 2 in Weight 180 lb Body Mass Index 32.0 kg/m^2 Results Laboratory Results Test Name Result Units Flags Reference Collection Result Comments Date/Time Date/Time White Blood Count 7.67 10^3uL 4.0-11.0 03/06/2015 03/06/2015 1:31pm 1:39pm Red Blood Count 3.83 10^6uL L 4.00-5.00 03/06/2015 03/06/2015 1:31pm 1:39pm Hemoglobin 9.8 g/dL L 12.0-15.5 03/06/2015 03/06/2015 1:31pm 1:39pm Hematocrit 31.90 % L 35.00-45.00 03/06/2015 03/06/2015 1:31pm 1:39pm Mean Corpuscular 83 FL 80-100 03/06/2015 03/06/2015 Volume 1:31pm 1:39pm Mean Corpuscular 25.6 PG L 26.0-34.0 03/06/2015 03/06/2015 Hemoglobin 1:31pm 1:39pm Mean Corpuscular 30.7 g/dL L 31.0-37.0 03/06/2015 03/06/2015 Hemoglobin Concent 1:31pm 1:39pm Red Cell 16.7 % H 11.8-15.6 03/06/2015 03/06/2015 Distribution Width 1:31pm 1:39pm Platelet Count 374 10^3uL 150-450 03/06/2015 03/06/2015 1:31pm 1:39pm Mean Platelet 9.6 FL H 6.0-9.5 03/06/2015 03/06/2015 Volume 1:31pm 1:39pm Neutrophils (%) 80 % H 51-67 03/06/2015 03/06/2015 (Auto) 1:31pm 1:39pm Lymphocytes (%) 14 % L 20-46 03/06/2015 03/06/2015 (Auto) 1:31pm 1:39pm Monocytes (%) 4 % 3-11 03/06/2015 03/06/2015 (Auto) 1:31pm 1:39pm Eosinophils (%) 1 % 0-4 03/06/2015 03/06/2015 (Auto) 1:31pm 1:39pm Basophils (%) 1 % 0-2 03/06/2015 03/06/2015 (Auto) 1:31pm 1:39pm Neutrophils # 6.1 X10^3 03/06/2015 03/06/2015 (Auto) 1:31pm 1:39pm Lymphocytes # 1.1 X10^3 03/06/2015 03/06/2015 (Auto) 1:31pm 1:39pm Monocytes # (Auto) 0.3 X10^3 03/06/2015 03/06/2015 1:31pm 1:39pm Eosinophils # 0.1 10^3uL 03/06/2015 03/06/2015 (Auto) 1:31pm 1:39pm Basophils # (Auto) 0.1 10^3uL 03/06/2015 03/06/2015 1:31pm 1:39pm Volume Urine 12 mL 03/06/2015 03/06/2015 Centrifuged 1:31pm 2:04pm Urine Collection RANDOM 03/06/2015 03/06/2015 Type VOIDED 1:31pm 2:04pm Urine Color Yellow 03/06/2015 03/06/2015 1:31pm 2:03pm Urine Clarity Clear 03/06/2015 03/06/2015 1:31pm 2:03pm Urine pH 8.5 5.0 - 8.0 03/06/2015 03/06/2015 1:31pm 2:03pm Urine Specific 1.015 1.005-1.030 03/06/2015 03/06/2015 [place] 1:31pm 2:03pm Urine Protein Negative Negative 03/06/2015 03/06/2015 1:31pm 2:03pm Urine Glucose (UA) Negative Negative 03/06/2015 03/06/2015 1:31pm 2:03pm Urine RBC (Auto) Trace-inta H Negative 03/06/2015 03/06/2015 ct 1:31pm 2:03pm Urine Ketones 1+ H Negative 03/06/2015 03/06/2015 1:31pm 2:03pm Urine Nitrite Negative Negative 03/06/2015 03/06/2015 1:31pm 2:03pm Urine Bilirubin Negative Negative 03/06/2015 03/06/2015 1:31pm 2:03pm Urine Urobilinogen 0.2 mg/dL 0.2-1.0 03/06/2015 03/06/2015 1:31pm 2:03pm Urine Leukocyte Negative Negative 03/06/2015 03/06/2015 Esterase 1:31pm 2:03pm Urine RBC 2-5 /HPF 03/06/2015 03/06/2015 1:31pm 2:04pm Urine WBC None Seen /HPF 03/06/2015 03/06/2015 1:31pm 2:04pm Urine Bacteria None Seen /HPF 03/06/2015 03/06/2015 1:31pm 2:04pm Urine Squamous None /LPF 03/06/2015 03/06/2015 Epithelial Cells 1:31pm 2:04pm Sodium Level 138 mmol/L 135-150 03/06/2015 03/06/2015 1:31pm 1:54pm Potassium Level 4.8 mmol/L 3.5-5.1 03/06/2015 03/06/2015 1:31pm 1:54pm Chloride Level 102 mmol/L 98-108 03/06/2015 03/06/2015 1:31pm 1:54pm Carbon Dioxide 24 mmol/L 22-29 03/06/2015 03/06/2015 Level 1:31pm 1:54pm Anion Gap 16.4 MEQ/L H 3-15 03/06/2015 03/06/2015 1:31pm 1:54pm Blood Urea Nitrogen 13 mg/dL 7-18 03/06/2015 03/06/2015 1:31pm 1:54pm Creatinine 0.70 mg/dL 0.6-1.2 03/06/2015 03/06/2015 1:31pm 1:54pm BUN/Creatinine 19 10-20 03/06/2015 03/06/2015 Ratio 1:31pm 1:54pm Estimat Glomerular 99.2 03/06/2015 03/06/2015 Filtration Rate 1:31pm 1:54pm Estimated GFR 82.0 03/06/2015 03/06/2015 (Non- 1:31pm 1:54pm [place] Glucose Level 127 mg/dL # H 70-110 03/06/2015 03/06/2015 1:31pm 1:54pm Calculated 269 mosm/L L 280-300 03/06/2015 03/06/2015 Osmolality 1:31pm 1:54pm Calcium Level 9.5 mg/dL 8.8-10.8 03/06/2015 03/06/2015 1:31pm 1:54pm Calcium/Ionized 4.2 mg/dL 3.8-4.6 03/06/2015 03/06/2015 Calcium Ratio 1:31pm 1:54pm Total Bilirubin 0.6 mg/dL # 0.1-1.0 03/06/2015 03/06/2015 1:31pm 1:54pm Alkaline 66 U/L 38-126 03/06/2015 03/06/2015 Phosphatase 1:31pm 1:54pm Aspartate Amino 25 U/L 15-37 03/06/2015 03/06/2015 Transf (AST/SGOT) 1:31pm 1:54pm Alanine 21 U/L L 30-65 03/06/2015 03/06/2015 Aminotransferase 1:31pm 1:54pm (ALT/SGPT) Total Protein 7.2 g/dL 6.4-8.5 03/06/2015 03/06/2015 1:31pm 1:54pm Albumin 4.2 g/dL 3.4-5.0 03/06/2015 03/06/2015 1:31pm 1:54pm Albumin/Globulin 1.400 1.1-1.8 03/06/2015 03/06/2015 Ratio 1:31pm 1:54pm Amylase Level 113 U/L 25-115 03/06/2015 03/06/2015 1:31pm 1:54pm Lipase 127 U/L 23-300 03/06/2015 03/06/2015 1:31pm 1:54pm Procedures No known history of procedures. Encounters Encounter Location Arrival/Admit Date Discharge/Depart Date Attending Provider Departed [place] 03/06/15 1:13pm 03/06/15 4:25pm [facility] Emergency Room [facility] THI Sears DO Recent Diagnosis
--- OUTSIDE RECORDS SUMMARY | 2017-06-07 10:27 | External Medical Summary | Summary of Care ---
:1940 Author Name Jeffry Kennedy M.D. Address [address] [place] [address] Care Team Providers Name Role Phone Outside, [...] Spine Post Myelogram Ordered:22-Aug-2014 ORTHO SCOLIOSIS Ordered:11-Sep-2014 Immunization Name Dates Details Immunizations not [...]
--- OUTSIDE RECORDS SUMMARY | 2017-06-07 10:27 | External Medical Summary | Summary of Care ---
:1940 Author Name Sean Taylor M.D. Address [address] [place], [place] [id number] Care Team Providers Name Role Phone Sean [...] ml/min (Better) Range: >60 EST GFR, NON-AFR ERITREAN 60 ml/min (Below low Range: >60 threshold) Comments: EST GFR is reported in ml/min per 1.73 m2 of body surface area. For -[place], please multiple result by 1.2.----- GLUCOSE 89 [...]
--- OUTSIDE RECORDS SUMMARY | 2017-06-07 10:27 | External Medical Summary | Continuity of Care Document ---
:1940 Author Organization [facility] Care Team Providers Name Role Phone SIXTO COOK Unavailable Unavailable Insurance Providers Payer Name Policy Number Subscriber Name Relationship Medicare A And B [id number] Irena Hernández 18 Self / Same As Patient [employer] Supp [id number] Irena Hernández 18 Self / Same As Patient Advance Directives Directive Response Recorded Date/Time Advanced Directives No 07/22/15 11:04am Problems Active Problems Medical Problem Onset Date [...] 05/28/15 Simvastatin 10 Mg ORAL Bedtime 0 01/05/16 (Zocor) 10 Mg Fentanyl 25 Mcg/Hr 25 [...] Onset Date Status Occupation or Former Occupation retired 07/22/2015 11:10am Exposure to occupational hazards No 05/27/2015 4:08pm Query Response Start Date Stop Date Smoking Status Never smoker Hospital Discharge Instructions No hospital discharge instructions. Plan of Care Discharge Date 07/22/15 1:20pm Prescriptions See Medication Section Functional Status No functional status results. Allergies, Adverse Reactions, Alerts Allergen Type Severity Reaction Status Last Updated Lovastatin Allergy Unknown Active 03/26/14 Pravastatin Allergy Unknown Active 03/26/14 Simvastatin Allergy Unknown Active 03/26/14 Immunizations No immunization records. Vital Signs Acute Vital Signs Vital Response Date/Time Temperature (Fahrenheit) 97.3 07/22/2015 1:04pm Pulse 81 bpm 07/22/2015 1:04pm Respirations 16 07/22/2015 1:04pm Height 5 ft 2 in Weight 175 lb Body Mass Index 32.0 kg/m^2 Results Pending Laboratory Results Test Name Collection Date/Time Procedures Procedure Status Date Provider(s) TTE W/DOPPLER COMPLETE Completed 07/02/15 URINALYSIS AUTO W/O SCOPE Completed 06/27/15 MICROSCOPIC EXAM OF URINE Completed 06/27/15 URINE BACTERIA CULTURE Completed 06/27/15 Encounters Encounter Location Arrival/Admit Date Discharge/Depart Date Attending Provider Departed [place] 07/22/15 11:00am 07/22/15 1:20pm Nick De La Paz [facility] Tito JACKSON Care Registered [place] 07/18/15 1:10pm [employer] SIXTO EARL Registered Edd 07/16/15 3:18pm Nick De La Paz [facility] Tito JACKSON Registered Edd 07/02/15 4:27pm [place] Gildardo JACKSON Registered Edd 06/27/15 4:02pm [facility] Tito JACKSON Recent Diagnosis SEPSIS
--- OUTSIDE RECORDS SUMMARY | 2017-06-07 10:27 | External Medical Summary | Continuity of Care Document ---
:1940 Author Organization [facility] Care Team Providers Name Role Phone SIXTO COOK Unavailable Unavailable Insurance Providers Payer Name Policy Number Subscriber Name Relationship Medicare A And B [id number] Irena Hernández 18 Self / Same As Patient [employer] Supp [id number] Irena Hernández 18 Self / Same As Patient Advance Directives Directive Response Recorded Date/Time Advanced Directives No 10/15/15 4:23pm Chief Complaint and Reason for Visit Chief Complaint Pain Reason for Visit [id number] Problems Active Problems Medical Problem Onset Date [...] discharge instructions. Plan of Care Discharge Date 10/15/15 7:01pm Disposition 01 HOME OR SELF-CARE Condition at Discharge Stable Instructions/Education Provided How to Care for Your Carter Catheter (GEN) Acute Urinary Retention in Women (ED) Prescriptions See Medication Section Referrals SIXTO COOK - Additional Instructions/Education ED YAMILE if any worse. Routine carter catheter care. Follow up with Dr. De La Paz. Some of your test results may not [...] worrisome symptoms. * Emergency Department phone number: [phone], x [phone]* MEDICAL RECORD If you need copies of your X-rays, call [phone] x [phone]. If you need copies of [...] the billing parties for services. SERVICE BILLING [employer] Emergency Room Services [facility] Physician Services [facility] X-rays [place] [facility] Patients will receive bills for services from the appropriate provider. If you have any questions about your [facility] bill, our staff will be happy to assist you. Please call [phone], and ask for the billing department. THANK YOU for choosing [facility] as your emergency care provider! Care Plan and Goals ~~Discharge Care Plan~~ Problem:PAIN Goal:DECREASED PAIN Instructions:FOLLOW UP WITH PCP Functional Status No functional status results. Allergies, Adverse Reactions, Alerts Allergen Type Severity Reaction Status Last Updated Lovastatin Allergy Unknown Active 10/15/15 Pravastatin Allergy Unknown Active 10/15/15 Simvastatin Allergy Unknown Active 10/15/15 Immunizations No immunization records. Vital Signs Acute Vital Signs Vital Response Date/Time Temperature (Fahrenheit) 98.9 10/15/2015 4:23pm Pulse 88 bpm 10/15/2015 7:00pm Respirations 18 10/15/2015 7:00pm Height 5 ft 3 in Weight 200 lb Body Mass Index 35.0 kg/m^2 Results Laboratory Results Test Name Result [...] 8:26am Urine Specific 1.015 1.005-1.030 10/13/2015 10/13/2015 [place] 7:45am 8:26am Urine Protein Negative Negative 10/13/2015 [...] GFR 73.5 10/13/2015 10/13/2015 (Non- 7:45am 8:50am [place] Glucose Level 107 mg/dL # 70-110 10/13/2015 [...] Blood NEGATIVE NEGATIVE 10/13/2015 10/13/2015 9:10am 10:15am Pending Laboratory Results Test Name Collection Date/Time Microbiology Results Procedure Source Result Collection Result Date/Time Date/Time Blood Culture Peripheral, :Lab No Growth in 48 10/13/2015 7:45am 2015 2:13am Indicates After hours [facility] Blood Culture Peripheral, :Lab No Growth in 48 10/13/2015 8:10am 2015 2:13am Indicates After hours [facility] Procedures No known history of procedures. Encounters Encounter Location Arrival/Admit Date Discharge/Depart Date Attending Provider Departed [place] 10/15/15 4:09pm 10/15/15 7:01pm [facility] Emergency Room [facility] NONI Zheng MD Departed [place] 10/13/15 7:24am 10/13/15 12:35pm [facility] Emergency Room [facility] NONI Zheng MD Recent Diagnosis
--- OUTSIDE RECORDS SUMMARY | 2017-06-07 10:27 | External Medical Summary | Continuity of Care Document ---
:1940 Author Organization [facility] Care Team Providers Name Role Phone SIXTO COOK Unavailable Unavailable Insurance Providers Payer Name Policy Number Subscriber Name Relationship Medicare A And B [id number] Irena Hernández 18 Self / Same As Patient [employer] Supp [id number] Irena Hernández 19 Self / Same As Patient Advance Directives Directive Response Recorded Date/Time Advanced Directives No 04/19/16 8:36pm Problems Active Problems Medical Problem Onset Date [...] needed 04/20/16 (Tylenol) 500 Mg for Pain Past Home Medications Medication Directions [...] Capsule., 30 Daily 04/19/16 Discontinued Mg Oral Duloxetine Hcl 30 Mg Capsule., 30 Daily 04/21/16 Discontinued Mg Oral Social History Social History Problem Response Recorded Date/Time Onset Date Status Exposure to occupational hazards No 04/19/2016 8:36pm Query Response Start Date Stop Date Smoking Status Former smoker Hospital Discharge Instructions No hospital discharge instructions. Plan of Care Discharge Date 07/13/16 1:17pm Prescriptions See Medication Section Functional Status No functional status results. Allergies, Adverse Reactions, Alerts Allergen Type Severity Reaction Status Last Updated Lovastatin Allergy Unknown Active 04/19/16 Pravastatin Allergy Unknown Active 04/19/16 Simvastatin Allergy Unknown Active 04/19/16 Immunizations No immunization records. Vital Signs Acute Vital Signs Vital Response Date/Time Temperature (Fahrenheit) 98.2 07/13/2016 12:59pm Pulse 88 bpm 07/13/2016 12:59pm Respirations 18 07/13/2016 12:59pm Height 5 ft 3 in Weight 176 lb Body Mass Index 31.0 kg/m^2 Results No known relevant diagnostic tests, laboratory data and/or discharge summary. Procedures No known history of procedures. Encounters Encounter Location Arrival/Admit Date Discharge/Depart Date Attending Provider Departed [place] 07/13/16 10:46am 07/13/16 1:17pm Nick De La Paz [facility] Tito JACKSON Care Recent Diagnosis Hiatal hernia
--- OUTSIDE RECORDS SUMMARY | 2017-06-07 10:28 | External Medical Summary | Continuity of Care Document ---
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 neutrophil percentage 59 51-67 Lymphocytes/100 leukocytes 29 20-46 Automated monocyte percentage 7 3-11 Eosinophil count auto 4 0-4 Automated basophil percentage 1 0-2 Automated blood neutrophil count 3.7 Blood lymphocytes count (number/volume) 1.8 Automated blood monocyte count 0.4 Blood absolute eosinophil count 0.3 Basophils 0.1 SMEAR SCAN COMMENT YES HEMOGLOBIN A1C* - 12/26/15 09:25 HEMOGLOBIN A1C* 6.0 4.0-6.0 Comprehensive metabolic panel - 12/26/15 09:25 Sodium measurement 88 70-110 Carbon dioxide measurement 26 22-29 Serum or plasma anion gap 15.4 3-15 BLOOD UREA NITROGEN 15 7-18 CREATININE SERUM 0.64 0.6-1.2 Brucella species antibody panel (IgG, IgM) 23 10-20 Estimated glomerular filtration rate (GFR) 109.8 [place] Estimated glomerular filtration rate (GFR) 90.7 non- OSMOLALITY,CALCULATED 277 280-300 CALCIUM 9.6 8.8-10.8 Calculated ionized calcium measurement 4.5 3.8-4.6 BILIRUBIN,TOTAL 0.5 0.1-1.0 Serum or plasma alkaline phosphatase measurement 58 38-126 ASPARTATE AMINO TRANSFERASE 16 15-37 ALANINE AMINOTRANSFERASE 20 30-65 Serum or plasma total protein measurement 6.4 6.4-8.5 Serum or plasma albumin measurement 3.7 3.4-5.0 Serum or plasma albumin/globulin mass ratio 1.370 1.1-1.8 General health panel - 12/26/15 09:25 Total cell count 1.73 0.46-4.68 LIPID PANEL - 12/26/15 09:25 Cholesterol 153 50-200 HDL Cholesterol 46 40-60 Triglycerides 72 10-150 LDL CHOLESTEROL 93 50-130 VLDL Cholesterol, calc 14 4.00-40.00 Cholesterol.total/Cholesterol.in HDL 3.3 0.0-5.0 FERRITIN - 12/26/15 09:25 Serum or plasma ferritin measurement (mass/volume) 5 5-204 Iron and total iron binding capacity measurement - 12/26/15 09:25 Total cell count 4 11-46 Serum or plasma iron binding capacity measurement 386 260-445 (mass/volume) Serum or plasma unsaturated iron binding capacity 371 126-382 measurement (mass/volume) Serum or plasma iron measurement (mass/volume) 15 50-170 12.0-16.0;g/dL - 12/26/15 18:10 12.0-16.0;g/dL 8.3 12.0-15.5 Blood type T Indirect antibody screen panel - 12/26/15 18:10 WRISTBAND NUMBER YCLC [id number] ABO group AP Blood group antibody screen NEGATIVE PATHOLOGY - 01/13/16 10:00 PATHOLOGY WP UA CULTURE IF INDICATED* - 01/13/16 11:00 COLLECTION METHOD RANDOM VOIDED Color of urine by auto Yellow Urine appearance determination Clear Urine pH measurement by automated test 5.5 5.0 - 8.0 strip Specific gravity of urine by automated >= 1.005-1.030 test strip Urine protein measurement by test strip Negative Negative (mass/volume) Urine glucose detection by automated Negative Negative test strip Urine erythrocytes count by automated Negative Negative test strip (number/volume) Urine ketones detection by automated Negative Negative test strip Urine nitrite detection by test strip Negative Negative Urine total bilirubin detection by Negative Negative automated test strip Urine urobilinogen measurement by 0.2 0.2-1.0 automated test strip (mass/volume) Urine leukocyte esterase detection by Negative Negative dipstick CYTOLOGY - 01/13/16 11:00 CYTOLOGY EXAM WP UA (urinalysis) - 04/03/16 15:40 COLLECTION METHOD RANDOM VOIDED Color of urine by auto Yellow Urine appearance determination Clear Urine pH measurement by automated test 5.0 5.0 - 8.0 strip Specific gravity of urine by automated >= 1.005-1.030 test strip PROTEIN, URINE 1+ Urine glucose detection by automated Negative Negative test strip Urine erythrocytes count by automated Negative Negative test strip (number/volume) Urine ketones detection by automated Trace Negative test strip NITRITE,URINE Negative Negative Urine total bilirubin detection by 1+ Negative automated test strip Urine urobilinogen measurement by 0.2 0.2-1.0 automated test strip (mass/volume) Urine leukocyte esterase detection by Negative Negative dipstick Microscopic examination of urine - 04/03/16 15:40 Urine volume measurement < Urine erythrocytes detection by automated method 2-5 Automated urine sediment leukocyte count by microscopy (number/high power field) Bacteria 1+ Negative SQUAMOUS EPITHELIAL CELL,UR 2-5 MUCOUS,URINE 2+ Hyaline casts detection in urine sediment by light 2+ microscopy Urine culture - 04/03/16 15:40 Urine culture ALLRED FOR RESULTS: * - NEW RESULT - RESULT WAS MODIFIED AFTER FINAL STATUS SET UA CULTURE IF INDICATED* - 04/19/16 16:20 COLLECTION METHOD CATHETER Color of urine by auto Yellow Urine appearance determination Clear Urine pH measurement by automated test strip 5.0 5.0 - 8.0 Specific gravity of urine by automated test >= 1.005-1.030 strip Urine protein measurement by test strip Negative Negative (mass/volume) Urine glucose detection by automated test Negative Negative strip Urine erythrocytes count by automated test 2+ Negative strip (number/volume) Urine ketones detection by automated test 1+ Negative strip Urine nitrite detection by test strip Negative Negative Urine total bilirubin detection by automated Negative Negative test strip Urine urobilinogen measurement by automated 0.2 0.2-1.0 test strip (mass/volume) Urine leukocyte esterase detection by Negative Negative dipstick Microscopic examination of urine - 04/19/16 16:20 Urine volume measurement 10 mL Urine erythrocytes detection by automated method 10-20 Automated urine sediment leukocyte count by microscopy None Seen (number/high power field) Bacteria None Seen SQUAMOUS EPITHELIAL CELL,UR 0-2 MUCOUS,URINE 1+ Complete blood count (CBC) with automated white blood cell (WBC) differential - 04/19/16 16:28 Blood automated leukocyte count 5.42 4.0-11.0 Erythrocytes 3.38 4.00-5.00 12.0-16.0;g/dL 7.8 12.0-15.5 Hematocrit 26.20 35.00-45.00 Automated erythrocyte mean corpuscular volume 78 80-100 Mean corpuscular hemoglobin (MCH) determination 23.1 26.0-34.0 Automated erythrocyte mean corpuscular 29.8 31.0-37.0 hemoglobin concentration measurement (mass/volume) Erythrocyte distribution width 18.3 11.8-15.6 Automated blood platelet count 389 150-450 Automated blood platelet mean volume measurement 9.4 6.0-9.5 Automated neutrophil percentage 61 51-67 Lymphocytes/100 leukocytes 27 20-46 Automated monocyte percentage 8 3-11 Eosinophil count auto 4 0-4 Automated basophil percentage 1 0-2 Automated blood neutrophil count 3.3 Blood lymphocytes count (number/volume) 1.4 Automated blood monocyte count 0.4 Blood absolute eosinophil count 0.2 Basophils 0.1 SMEAR SCAN COMMENT YES Comprehensive metabolic panel - 04/19/16 16:28 Sodium measurement 103 70-110 Carbon dioxide measurement 26 22-29 Serum or plasma anion gap 14.8 3-15 BLOOD UREA NITROGEN 22 7-18 CREATININE SERUM 0.85 0.6-1.2 Brucella species antibody panel (IgG, IgM) 26 10-20 Estimated glomerular filtration rate (GFR) 79.1 [place] Estimated glomerular filtration rate (GFR) 65.4 non- OSMOLALITY,CALCULATED 282 280-300 CALCIUM 9.3 8.8-10.8 Calculated ionized calcium measurement 4.1 3.8-4.6 BILIRUBIN,TOTAL 0.5 0.1-1.0 Serum or plasma alkaline phosphatase measurement 57 38-126 ASPARTATE AMINO TRANSFERASE 18 15-37 ALANINE AMINOTRANSFERASE 22 30-65 Serum or plasma total protein measurement 7.2 6.4-8.5 Serum or plasma albumin measurement 3.7 3.4-5.0 Serum or plasma albumin/globulin mass ratio 1.057 1.1-1.8 ACETAMINOPHEN - 04/19/16 16:28 ACETAMINOPHEN < 10.0 10.0-30.0 Complete blood count (CBC) with automated white blood cell (WBC) differential - 04/20/16 05:50 Blood automated leukocyte count 10.17 4.0-11.0 Erythrocytes 3.48 4.00-5.00 12.0-16.0;g/dL 8.1 12.0-15.5 Hematocrit 26.80 35.00-45.00 Automated erythrocyte mean corpuscular volume 77 80-100 Mean corpuscular hemoglobin (MCH) determination 23.3 26.0-34.0 Automated erythrocyte mean corpuscular 30.2 31.0-37.0 hemoglobin concentration measurement (mass/volume) Erythrocyte distribution width 18.0 11.8-15.6 Automated blood platelet count 422 150-450 Automated blood platelet mean volume measurement 9.8 6.0-9.5 Automated neutrophil percentage 85 51-67 Lymphocytes/100 leukocytes 9 20-46 Automated monocyte percentage 5 3-11 Eosinophil count auto 0 0-4 Automated basophil percentage 0 0-2 Automated blood neutrophil count 8.6 Blood lymphocytes count (number/volume) 0.9 Automated blood monocyte count 0.5 Blood absolute eosinophil count 0.0 Basophils 0.0 SMEAR SCAN COMMENT YES Comprehensive metabolic panel - 04/20/16 05:50 Sodium measurement 129 70-110 Carbon dioxide measurement 24 22-29 Serum or plasma anion gap 16.3 3-15 BLOOD UREA NITROGEN 14 7-18 CREATININE SERUM 0.68 0.6-1.2 Brucella species antibody panel (IgG, IgM) 21 10-20 Estimated glomerular filtration rate (GFR) 102.3 [place] Estimated glomerular filtration rate (GFR) 84.6 non- OSMOLALITY,CALCULATED 278 280-300 CALCIUM 9.1 8.8-10.8 Calculated ionized calcium measurement 3.9 3.8-4.6 BILIRUBIN,TOTAL 0.8 0.1-1.0 Serum or plasma alkaline phosphatase measurement 65 38-126 ASPARTATE AMINO TRANSFERASE 23 15-37 ALANINE AMINOTRANSFERASE 21 30-65 Serum or plasma total protein measurement 7.5 6.4-8.5 Serum or plasma albumin measurement 3.8 3.4-5.0 Serum or plasma albumin/globulin mass ratio 1.027 1.1-1.8 CYTOLOGY - 07/13/16 11:50 CYTOLOGY EXAM WP Complete blood count (CBC) with automated white blood cell (WBC) differential - 07/29/16 11:30 Blood automated leukocyte count 5.40 4.0-11.0 Erythrocytes 3.41 4.00-5.00 12.0-16.0;g/dL 7.4 12.0-15.5 Hematocrit 26.60 35.00-45.00 Automated erythrocyte mean corpuscular volume 78 80-100 Mean corpuscular hemoglobin (MCH) determination 21.7 26.0-34.0 Automated erythrocyte mean corpuscular 27.8 31.0-37.0 hemoglobin concentration measurement (mass/volume) Erythrocyte distribution width 20.3 11.8-15.6 Automated blood platelet count 438 150-450 Automated blood platelet mean volume measurement 9.9 6.0-9.5 Automated neutrophil percentage 62 51-67 Lymphocytes/100 leukocytes 27 20-46 Automated monocyte percentage 6 3-11 Eosinophil count auto 4 0-4 Automated basophil percentage 2 0-2 Automated blood neutrophil count 3.4 Blood lymphocytes count (number/volume) 1.4 Automated blood monocyte count 0.3 Blood absolute eosinophil count 0.2 Basophils 0.1 SMEAR SCAN COMMENT YES Complete blood count (CBC) with automated white blood cell (WBC) differential - 08/13/16 10:10 Blood automated leukocyte count 5.12 4.0-11.0 Erythrocytes 3.67 4.00-5.00 12.0-16.0;g/dL 8.9 12.0-15.5 Hematocrit 30.80 35.00-45.00 Automated erythrocyte mean corpuscular volume 84 80-100 Mean corpuscular hemoglobin (MCH) determination 24.3 26.0-34.0 Automated erythrocyte mean corpuscular 28.9 31.0-37.0 hemoglobin concentration measurement (mass/volume) Erythrocyte distribution width 26.9 11.8-15.6 Automated blood platelet count 470 150-450 Automated blood platelet mean volume measurement 9.4 6.0-9.5 Automated neutrophil percentage 65 51-67 Lymphocytes/100 leukocytes 22 20-46 Automated monocyte percentage 7 3-11 Eosinophil count auto 4 0-4 Automated basophil percentage 3 0-2 Automated blood neutrophil count 3.3 Blood lymphocytes count (number/volume) 1.1 Automated blood monocyte count 0.4 Blood absolute eosinophil count 0.2 Basophils 0.1 SMEAR SCAN COMMENT YES Complete blood count (CBC) with automated white blood cell (WBC) differential - 08/18/16 11:40 Blood automated leukocyte count 5.18 4.0-11.0 Erythrocytes 3.91 4.00-5.00 12.0-16.0;g/dL 9.7 12.0-15.5 Hematocrit 32.90 35.00-45.00 Automated erythrocyte mean corpuscular volume 84 80-100 Mean corpuscular hemoglobin (MCH) determination 24.8 26.0-34.0 Automated erythrocyte mean corpuscular 29.5 31.0-37.0 hemoglobin concentration measurement (mass/volume) Automated blood platelet count 409 150-450 Automated blood platelet mean volume measurement 9.3 6.0-9.5 Automated neutrophil percentage 68 51-67 Lymphocytes/100 leukocytes 20 20-46 Automated monocyte percentage 7 3-11 Eosinophil count auto 3 0-4 Automated basophil percentage 2 0-2 Automated blood neutrophil count 3.5 Blood lymphocytes count (number/volume) 1.0 Automated blood monocyte count 0.4 Blood absolute eosinophil count 0.2 Basophils 0.1 SMEAR SCAN COMMENT Comprehensive metabolic panel - 08/18/16 11:40 Sodium measurement 100 70-110 CARBON DIOXIDE 24 22-29 Serum or plasma anion gap 15.0 3-15 BLOOD UREA NITROGEN 13 7-18 CREATININE SERUM 0.61 0.6-1.2 Brucella species antibody panel (IgG, IgM) 21 10-20 Estimated glomerular filtration rate (GFR) 116.0 [place] Estimated glomerular filtration rate (GFR) 95.9 non- OSMOLALITY,CALCULATED 278 280-300 CALCIUM 8.7 8.8-10.8 Calculated ionized calcium measurement 4.0 3.8-4.6 BILIRUBIN,TOTAL 0.5 0.1-1.0 Serum or plasma alkaline phosphatase measurement 64 38-126 ASPARTATE AMINO TRANSFERASE 19 15-37 ALANINE AMINOTRANSFERASE 28 30-65 Serum or plasma total protein measurement 6.7 6.4-8.5 Serum or plasma albumin measurement 3.9 3.4-5.0 Serum or plasma albumin/globulin mass ratio 1.392 1.1-1.8 TROPONIN I* - 08/18/16 11:40 TROPONIN I < 0.012 0.010-0.080 UA CULTURE IF INDICATED* - 10/13/16 13:40 COLLECTION METHOD CLEAN CATCH Color of urine by auto Other Urine appearance determination Slightly Cloudy Urine pH measurement by automated test 7.0 5.0 - 8.0 strip Specific gravity of urine by automated 1.020 1.005-1.030 test strip Urine protein measurement by test Negative Negative strip (mass/volume) Urine glucose detection by automated Negative Negative test strip Urine erythrocytes count by automated Trace-intact Negative test strip (number/volume) Urine ketones detection by automated Negative Negative test strip Urine nitrite detection by test strip Negative Negative Urine total bilirubin detection by Negative Negative automated test strip Urine urobilinogen measurement by 0.2 0.2-1.0 automated test strip (mass/volume) Urine leukocyte esterase detection by Negative Negative dipstick Microscopic examination of urine - 10/13/16 13:40 Urine volume measurement 12 mL Urine erythrocytes detection by automated method 0-2 Automated urine sediment leukocyte count by microscopy (number/high power field) Bacteria Rare SQUAMOUS EPITHELIAL CELL,UR 2-5 Complete blood count (CBC) with automated white blood cell (WBC) differential - 10/13/16 14:28 Blood automated leukocyte count 6.03 4.0-11.0 Erythrocytes 4.36 4.00-5.00 12.0-16.0;g/dL 12.8 12.0-15.5 Hematocrit 40.90 35.00-45.00 Automated erythrocyte mean corpuscular volume 94 80-100 Mean corpuscular hemoglobin (MCH) determination 29.4 26.0-34.0 Automated erythrocyte mean corpuscular 31.3 31.0-37.0 hemoglobin concentration measurement (mass/volume) Erythrocyte distribution width 21.8 11.8-15.6 Automated blood platelet count 320 150-450 Automated blood platelet mean volume measurement 9.0 6.0-9.5 Automated neutrophil percentage 62 51-67 Lymphocytes/100 leukocytes 24 20-46 Automated monocyte percentage 8 3-11 Eosinophil count auto 5 0-4 Automated basophil percentage 1 0-2 Automated blood neutrophil count 3.8 Blood lymphocytes count (number/volume) 1.5 Automated blood monocyte count 0.5 Blood absolute eosinophil count 0.3 Basophils 0.1 SMEAR SCAN COMMENT YES Comprehensive metabolic panel - 10/13/16 14:28 Sodium measurement 98 70-110 CARBON DIOXIDE 27 22-29 Serum or plasma anion gap 13.5 3-15 BLOOD UREA NITROGEN 17 7-18 CREATININE SERUM 0.68 0.6-1.2 Brucella species antibody panel (IgG, IgM) 25 10-20 Estimated glomerular filtration rate (GFR) 102.3 [place] Estimated glomerular filtration rate (GFR) 84.6 non- OSMOLALITY,CALCULATED 277 280-300 CALCIUM 9.0 8.8-10.8 Calculated ionized calcium measurement 4.0 3.8-4.6 BILIRUBIN,TOTAL 0.2 0.1-1.0 Serum or plasma alkaline phosphatase measurement 67 38-126 ASPARTATE AMINO TRANSFERASE 18 15-37 ALANINE AMINOTRANSFERASE 15 30-65 Serum or plasma total protein measurement 7.1 6.4-8.5 Serum or plasma albumin measurement 4.0 3.4-5.0 Serum or plasma albumin/globulin mass ratio 1.290 1.1-1.8 TROPONIN I* - 10/13/16 14:28 TROPONIN I < 0.012 0.010-0.080 NT-Pro BNP - 10/13/16 14:28 NT-Pro BNP 108 0-125 PATHOLOGY - 10/16/16 13:15 PATHOLOGY WPM Encounters ACCT No. Visit Discharge Status Pt. Type Provider Facility Loc./Unit Complaint Date/Time [id number] 09/17/2015 09/18/2015 DIS Outpatie DAILY, LBP 293 13:49:00 03:30:00 nt KHADAR Howard [id number] 10/15/2016 10/16/2016 DIS Outpatihenny Puga ASC PANENDOSCOPY 0155 15:52:00 14:46:00 nt , [facility] [id number] 10/13/2016 10/13/2016 CLS Emergenc EMELY Puga ED 8380 13:33:00 23:59:59 y , [facility] [id number] 08/18/2016 08/18/2016 CLS Emergenc RADHA Puga ED 7406 10:21:00 23:59:59 y , [facility] [id number] 08/13/2016 08/13/2016 CLS Outjayleen Puga LAB LAB DROP OFF 2142 10:39:00 23:59:59 nt ND, [facility] [id number] 07/29/2016 07/29/2016 CLS Nayely Puga LAB DROP OFF FROM 5535 12:02:00 23:59:59 nt ND, [facility] [id number] 07/13/2016 07/13/2016 DIS Edd Cowart MD ASC CYSTO 1860 10:46:00 13:17:00 nt [facility] [id number] 04/19/2016 04/21/2016 BUTCH Puga MED/SURG ALTERED 9051 19:07:00 11:45:00 t , [facility] MENTAL STATUS [facility] [id number] 04/03/2016 04/03/2016 CLS Edd Cowart MD LAB LAB DROP OFF 4600 16:14:00 23:59:59 nt [facility] SPECIMAN COLLECTED AT HOME [id number] 03/26/2016 03/26/2016 CLS Preadmit JOYCE Puga EUOP HERE FOR 4460 00:03:00 23:59:59 PA, Hospital TRANSFUSION SIX[facility] S [id number] 12/26/2015 03/25/2016 DIS Outjayleen Puga EUOP HERE FOR 4249 18:10:00 00:01:00 nt PA, Hospital TRANSFUSION SIX[place] S [id number] 03/24/2016 03/24/2016 CLS Edd Aguilera RAD OSTEOPOROSIS 1268 10:24:00 23:59:59 nt [facility] M81.0 [id number] 01/13/2016 01/13/2016 Edd Aragon MD, ASC CYSTO 7258 10:45:00 12:50:00 nt [facility] [id number] 12/26/2015 12/26/2015 CLS Outjayleen Puga LAB LAB DROP OFF 3415 09:43:00 23:59:59 nt PA, [facility] [id number] 10/16/2015 10/16/2015 CLS Emergenc CHATA Puga ED HSB 9485 00:13:00 23:59:59 y [facility] [id number] 10/15/2015 10/15/2015 DIS Emergenc WILLIAM Puga ED 9253 16:09:00 19:01:00 y , [facility] [id number] 10/13/2015 10/13/2015 DIS Emergenc WILLIAM Puga ED 6341 07:24:00 12:35:00 y , [facility] [id number] 07/22/2015 07/22/2015 Edd Aragon MD ASC CYSTO 2469 11:00:00 13:20:00 nt [facility] [id number] 07/18/2015 07/18/2015 CLS Nayely Puga LAB LAB DROP OFF 3109 13:10:00 23:59:59 nt PA, [facility] [id number] 07/16/2015 07/16/2015 CLS Edd Cowart MD LAB 0774 15:18:00 23:59:59 nt [facility] [id number] 05/27/2015 05/28/2015 DIS Inpatiyung Puga MED/SURG DX: CHEST 4130 14:27:00 11:47:00 t , [facility] PAIN R/O ACS M AND GASTRITIS [id number] 03/28/2015 03/28/2015 CLS Outpatihenny Puga LAB LAB DROP OFF 4922 10:53:00 23:59:59 nt [facility] [id number] 03/21/2015 03/21/2015 CLS Outpatihenny Puga LAB LAB DROP OFF 8718 17:28:00 23:59:59 nt , [facility] BY AA M [id number] 03/06/2015 03/06/2015 DIS Emergenc CHATA Puga ED 3405 13:13:00 16:25:00 y [facility] [id number] 01/21/2015 01/21/2015 DIS Edd Cowart MD ASC CYSTO 8577 10:56:00 12:20:00 nt [facility] [id number] 11/21/2014 11/21/2014 CLS OutpatiJuan A Win RT pre- op spinal 4860 07:16:00 23:59:59 nt Hospital cord stimulator [id number] 07/05/2014 07/05/2014 CLS Outjayleen Puga LAB LAB DROP OFF 9080 11:29:00 23:59:59 nt [facility] [id number] 04/23/2014 04/23/2014 Edd Aragon MD ASC CYSTOSCOPY 4264 11:22:00 13:00:00 nt [facility] [id number] 03/25/2014 03/25/2014 DIS Emergenc CHATA Puga ED FALL , R FOOT 2920 20:57:00 23:12:00 y [facility] [id number] 02/22/2014 02/22/2014 CLS Outpatihenny Puga [facility] 2636 10:00:00 23:59:59 nt [facility] LAB DROP OFF SIXTO S [id number] 01/01/2014 01/01/2014 Edd Aragon MD ASC CYSTO 0395 08:37:00 10:05:00 nt [facility] [id number] 12/26/2013 12/26/2013 CLS Outjayleen Puga RAD ABSENT PEDAL 6021 08:22:00 23:59:59 nt PA, Hospital PULSES [address] [place] [id number] 12/14/2013 12/14/2013 CLS Nayely Puga LAB LAB DROP OFF 8309 08:27:00 23:59:59 nt PA, Hospital FROM [place] [facility] [id number] 10/02/2013 10/02/2013 DIS Edd Cowart MD, ASC CYSTO 1677 08:17:00 10:26:00 [facility] [id number] 08/29/2013 08/29/2013 DIS Emergenc LUCY Puga ED HSB 8160 11:25:00 13:06:00 [place] JCAKSON, [facility] [id number] 08/03/2013 08/03/2013 CLS Outjayleen Puga LAB LAB DROP OFF 5897 10:57:00 23:59:59 nt PA, [facility] SIXTO S [id number] 06/30/2013 06/30/2013 CLS Edd Cowart MD RAD LOW BACK PAIN 6287 14:01:00 23:59:59 [facility] [id number] 06/08/2013 06/08/2013 CLS Nayely Puga LAB [facility] 4986 10:40:00 23:59:59 nt PA, Hospital LAB DROP OFF [place] [id number] 06/05/2013 06/05/2013 Edd Aragon MD ASC CYSTO 1024 10:38:00 12:35:00 [facility] [id number] 03/06/2013 03/06/2013 Edd Aragon MD ASC CYSTO 5440 11:03:00 11:58:00 [facility] [id number] 01/19/2013 01/19/2013 CLS Nayely Puga RAD LLQ ABDOMINAL 0061 08:23:00 23:59:59 nt PA, Hospital PAIN, H[place] [id number] 01/06/2013 01/06/2013 CLS Edd Rutherford MD RAD 7032 08:45:00 23:59:59 nt [facility] [id number] 07/02/2015 Document 9483 16:27:00 Registra tion [id number] 06/27/2015 Document 9813 16:02:00 Registra tion [id number] 07/23/2014 Document 8735 11:10:00 Registra tion [id number] 07/20/2014 Document 5540 09:07:00 Registra tion [id number] 11/21/2012 Document 6843 15:20:00 Registra tion [id number] 11/21/2012 Document 6603 13:27:00 Registra tion [id number] 11/21/2012 Document 5878 10:25:00 Registra tion [id number] 10/27/2012 Document 1101 10:09:00 Registra tion [id number] 09/16/2012 Document 4596 08:27:00 Registra tion [id number] 05/30/2012 Document 1801 14:49:00 Registra tion [id number] 05/19/2012 Document 2166 10:24:00 Registra tion [id number] 05/14/2012 Document 9196 15:26:00 Registra tion [id number] 01/14/2012 Document 4620 13:09:00 Registra tion [id number] 02/23/2017 02/23/2017 DIS Outpatie Gramaggiehol Broaddus OUTPT right 08:18:00 23:59:00 [facility] and long fingers
[2017-06-07 12:01] VITALS: BMI 32.6
[2017-06-07] MEDS ORDERED: ONDANSETRON 4 MG TABLET PO PRN (12:16)
[2017-06-07] MEDS ORDERED: CALCIUM CARBONATE Chewable 500mg TABLET PO PRN (12:16)
[2017-06-07] MEDS ORDERED: PNEUMOCOCCAL 13 VACCINE 0.5ml INJECTION IM ONE (12:17)
--- NOTE | 2017-06-07 12:45 | IRU History & Physical Report ---
[facility] IRU Date: Date: 06/07/17 Time: 1236 Chief complaint: Severe back pain and weakness HPI: Ms. Magana is a very pleasant 76-year-old female from [place], [place]. Referring physician is RAJAT Lim. Her attending physician is Dr. James Browne in [place]. The patient has a history of severe spinal stenosis in the lumbar spine area along with scoliosis. She underwent instrumentation with screws and rods in [address] [place] [address] Mei. She states that the pain was not relieved and in fact was worse after that. She has had progressive discomfort in the low back area and is particularly noted in the left flank area into the left hip and left upper leg. She believes that both legs are weak. She has been progressively less active at home due to the severe pain and weakness. She was reassessed by an orthopedist from who was visiting in [place], [place] in 2016. He did offer the patient a 10 hour procedure to remove the rods and screws and to try to help her discomfort. However as a part of the workup for that procedure she underwent a bone density test revealing the presence of osteoporosis. She then took a medication for that which, she says, resulting in the loss of numerous teeth. For that reason she does not wish to pursue additional surgical intervention at the present time. The patient has undergone epidural steroid injections in [place] over the past 1 year with no benefit. With regard to pain management, it has become more difficult. She takes hydrocodone/acetaminophen 10/325 one tablet up to 4 times daily but tries to limit it to 2-3 tablets daily. She tried a pain patch but it was not beneficial for her and she is not on that. Also uses aspirin as needed. She is on cyclobenzaprine for muscle spasm in the left lateral hip area. She reports that 3-4 months ago she was independent with activities. She was able to ambulate with a front-wheeled walker. However she has gone "downhill" since that time in terms of self-care deficits and ability to perform functional activities. She has been cared for by home health physical therapy and occupational therapy. Her activity level has significantly declined due to severe pain and weakness in the low back and leg area and has therefore failed outpatient treatment in this regard. She had fallen in June 2012 with resultant left arm pain and apparent injury. She has left shoulder pain with a torn rotator cuff but no surgery has been performed. In addition she has had trigger finger repair on the right hand in the last year or so but unfortunately this has resulted in continued nonuse of the right hand due to other fingers now being involved. She has bilateral knee pain and has received corticosteroid injections in them. She finds it most comfortable to lie with her left leg crossed over her right thigh. She cannot lie on her left side due to pain in the left flank/left hip area. The patient does have a decubitus lesion involving the left heel. There is mild redness and evidence of pressure lesion involving the left heel likely related to her immobility. The patient also has history of diabetes mellitus. She has checked her blood sugars in the past but no longer knows where her machine is. When she was checking her sugars they were typically 120-140. She is on metformin twice daily and has never used insulin at home. Last A1c was reportedly in the last several months and was around 5%. She lives at home in [place], [place] in their [address]. home which they built. She has 4 steps to get into her home which are the height of a brick. They were intentionally designed with low height in order to get a wheelchair up and down for some relatives in the past. She does use a 4 wheeled walker at home for ambulation. Prior level of functioning is as follows: She was independent for all activities. Current level of functioning is as follows: She requires moderate assistance for grooming, total assistance for bathing, maximal assistance for upper and lower body dressing, moderate assistance for toileting, maximal assist assistance for bed/chair/wheelchair transfers and toilet transfers. She requires total assistance for walking and wheelchair propulsion. She walks with a 4 wheeled rolling walker 30 feet. According to [facility], she was previously able to complete fine motor ADLs using the right hand prior to surgery but now is unable to do that. She requires assistance with all ADLs and is unable to use the right hand functionally at present due to increased pain and reduced range of motion of the fingers. She does have history of falls and difficulty with home safety and is unable to ambulate independently due to gait and balance issues as well as strength and pain. The following medical conditions are noted and require active monitoring and/or management: 1. Lumbar spinal stenosis with localized and radicular pain, uncontrolled resulting in debilitation and generalized weakness 2. Diabetes mellitus type 2, not on insulin, controlled: The patient is at risk of hypoglycemia and hyperglycemia due to increased energy demands as well as pain. 3.Hypertension: She is at risk for uncontrolled hypertension in view of her difficult pain management The following therapies will be needed: 1. Physical therapy: for transfers and ambulation and stairs. 2. Occupational therapy: for ADL's and transfers. 3. Medical management: for the above conditions. 4. 24 hour Rehabilitation Nursing to monitor and address the following: Blood sugars, pain assessment and management, reduce fall risk, monitor blood pressures 5. Dietitian: To monitor caloric intake in view of her diabetes mellitus [facility] Patient Stated Medical History Cerebrovascular Accident Yes: [employer] caused Rt hand issue Other HEENT Yes: wears glasses Hypertension Yes Diabetes Mellitus Type 2 Yes Constipation Yes Gastroesophageal Reflux Yes Disease Hx Incontinence Yes Sepsis Yes: 2016 Medical History Updates: 1. Lumbar spinal stenosis. 2. Scoliosis. 3. Benign essential hypertension. 4. Reduced movement of right hand fingers, previously attributed to stroke although unconfirmed. 5. Diabetes mellitus type 2 on oral agents only, controlled by history. 6. Osteoarthritis involving bilateral knees. 7. Left shoulder pain possibly related to rotator cuff injury. 8. History of uterine cancer, treated with surgical removal and without known recurrence. 9. History of bladder cancer treated with surgical removal roughly 2012 without documentation of recurrence Surgical History: 1. Instrumentation with rods and screws to repair scoliosis and lumbar spinal stenosis 2009 Dr. Mehta in [place]. 2. Transurethral resection of bladder tumor, approximately 2012 with close monitoring and no evidence of recurrence. 3. Hysterectomy with bilateral salpingo-oophorectomy 1994 for uterine cancer. 4. Trigger finger repair right long finger February 2017 with subsequent nonuse of other fingers and right hand Family History: Patient's parents were reportedly but she was able to stay in contact with her father who at age 96. Mother age 92. - Social History Smoking status: Former smoker (patient smoked for 1-1/2 years only while in college in the 1960s and has not smoked since.) Alcohol intake: current Alcohol intake frequency: holidays/special occasions only (occasional wine intake) Housing: house Household members: spouse Current occupational status: retired Current residence: Apartment/Private Home Social history: Patient lives with her in [place], [place]. 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 Review of Systems - Constitutional Constitutional: Present: fatigue. Absent: anorexia, chills, fever(s), headache( s), lethargy, malaise, night sweats, weakness, weight gain, weight loss - EENMT Eyes: Absent: blurry vision, change in vision, diplopia Mouth/Throat: Absent: changes in swallowing, painful swallowing, change in taste , bleeding gums, change in voice - Cardiovascular Cardiovascular: Absent: chest pain, palpitations, syncope, dyspnea on exertion, orthopnea, edema, cyanosis, heart murmur Rhythm: Present: regular rhythm Vascular: Absent: intermittent claudication, pedal edema, unilateral swelling - Respiratory Respiratory: Absent: cough, dyspnea, hemoptysis, dyspnea on exertion, wheezing, pain on inspiration, chest congestion, excessive phlegm production - Gastrointestinal Gastrointestinal: Present: constipation (uses MiraLAX on a regular basis.), nausea (reports frequent nausea for which she uses an antinausea medication. Etiology not certain.). Absent: abdominal pain, change in bowel habits, diarrhea, dyspepsia, dysphagia, early satiety, hematochezia, melena, vomiting - Genitourinary Genitourinary: Absent: urinary frequency, urinary incontinence - Musculoskeletal Musculoskeletal: Present: arthralgias (left hip, low back, left shoulder and both knees), back pain. Absent: abnormal gait, joint swelling, limited range of motion, muscle weakness - Integumentary/Breasts Integumentary: Absent: alopecia, erythema, lesions, pruritus, rash, jaundice - Neurological Neurological: Present: dizziness (reports frequent and chronic dizziness. Uncertain if vertigo versus lightheadedness.), weakness. Absent: abnormal gait , abnormal movements, abnormal speech, confusion, convulsions, focal weakness, frequent falls, headache(s), loss of vision, memory loss, numbness, paresthesias , tremor(s) Neurological Comments: Occasional headaches reported. - Psychiatric Psychiatric: Absent: abnormal sleep pattern, anxiety, depression - Endocrine Endocrine: Absent: cold intolerance, flushing, heat intolerance, palpitations - Hematologic/Lymphatic Hematologic/Lymphatic: Absent: easy bleeding, easy bruising, lymphadenopathy - Allergic/Immunologic Allergic/Immunologic: Absent: urticaria Medications Home Medications Medication Instructions Recorded Confirmed Type APAP/Diphenhydramine 500/25 1 tab PO HS PRN 06/07/17 06/07/17 History [Tylenol Pm] Aspirin [Pauline Advanced] 2 tab PO Q4H PRN 06/07/17 06/07/17 History CALCIUM CARBONATE Chewable [Tums] 1 tab PO Q6H PRN 06/07/17 06/07/17 History Cyclobenzaprine [Flexeril] 1 tab PO Q8H PRN 06/07/17 06/07/17 History Duloxetine HCl [Duloxetine HCl] 30 mg PO DAILY 06/07/17 06/07/17 History Famotidine [Pepcid] 1 tab PO DAILY 06/07/17 06/07/17 History Ferrous Sulfate [Iron] 325 mg PO BIDWM 06/07/17 06/07/17 History Hydrocodone/APAP 10/325 [Leland 1 tab PO Q6H PRN 06/07/17 06/07/17 History 10/325] Lisinopril [Prinivil] 10 mg PO DAILY 06/07/17 06/07/17 History Metformin [Glucophage] 500 mg PO BIDWM 06/07/17 06/07/17 History Ondansetron HCl 4 mg PO Q8H PRN 06/07/17 06/07/17 History PEG 3350 17gm PACKET [Miralax] 34 gm PO DAILY 06/07/17 06/07/17 History Potassium 99 mg PO DAILY 06/07/17 06/07/17 History Allergies Allergy/AdvReac Type Severity Reaction Status Date / Time Goiagul-Oyp-Jsa Reductase Allergy Verified 06/07/17 11:04 Inhibitor Exam Vital Signs: Temperature 97.4 F 06/07/17 10:52 Pulse Rate 87 06/07/17 10:52 Respiratory Rate 20 06/07/17 10:52 Blood Pressure 122/77 06/07/17 10:52 Pulse Oximetry 90 06/07/17 10:52 Height/Weight/BMI: Height 1.57 m Weight 81 kg Body Mass Index 32.6 - Constitutional Present: mild distress, well nourished, well developed, obese, cooperative, other (she is awake, alert and verbal.) - Routine HEENT Exam Head: Present: normocephalic, atraumatic. Absent: cushingoid faces, abrasion, laceration, hematoma Eye: Present: EOMI, PERRL. Absent: conjunctival icterus, scleral injection, periorbital swelling, nystagmus ENT: Present: mucous membranes moist, oropharynx clear. Absent: dentition normal (several missing teeth.) Comments: Mild ptosis noted left eyelid. Patient states it has been since childhood. - Routine Neck Exam Present: supple, full ROM, trachea midline. Absent: lymphadenopathy, thyromegaly, tenderness, swelling - Routine Chest/Breast/Axilla Exam Chest wall: Absent: tenderness, mass Axillae: Absent: lymphadenopathy, mass - Routine Respiratory Exam Present: CTA bilaterally. Absent: accessory muscle use, decreased breath sounds , prolonged expiratory phase, rales, respiratory distress, rhonchi, stridor, wheezes, crackles, distant breath sounds - Routine Cardiovascular Exam Present: RRR, S1, S2, no murmur. Absent: gallop, S3, S4, click, irregular rhythm - Routine Abdominal Exam Present: soft, normoactive bowel sounds, non distended, non tender. Absent: rebound, guarding, firm, rigid, organomegaly, mass, hernia, wound - Routine Extremities Exam Present: no edema, non tender, pulses intact (lower extremity pulses present but diminished in both ankles.), normal capillary refill. Absent: cyanosis, clubbing - Routine Back/Spine/Pelvis Exam Back/Spine: Present: full ROM. Absent: scoliosis, kyphosis - Routine Skin Exam Present: intact, dry, warm, wounds (decubitus wound involving left heel with mild redness and scab versus callus). Absent: cyanosis, erythema, pallor, mottling, petechiae, urticaria, lesions, jaundice - Routine Neurological Exam Present: alert, oriented X3, CN II-XII intact, sensory deficit (patient reports reduced sensation in the feet), motor deficit (unable to extend right hand fingers.), moving all extremities, normal speech Strength tested in lower extremities and found to be reasonably good bilaterally. Proximal muscle strength appears to be normal bilaterally. Strength good on abduction and abduction. - Routine Psychiatric Exam Present: normal affect, normal thought process, cooperative, good insight, good judgment. Absent: depressed, anxious Sepsis Assessment - Evaluation Severe Sepsis: none seen IRU A/P (1) Debilitated Current visit: Yes Status: Chronic The patient's debilitation has been progressive over the last 3-4 months. Prior to that she was fairly independent with activities. However she has had progressive pain and difficulty with ambulation which has resulted in generalized debility with reduced ability to perform ADLs. She is at risk for pressure lesions as well as further muscle weakness and atrophy. (2) Lumbar spinal stenosis Qualifiers: Neurogenic claudication status: without neurogenic claudication Qualified Code(s): M48.061 - Spinal stenosis, lumbar region without neurogenic claudication Current visit: Yes Status: Chronic Patient has severe and ongoing pain in the lumbar spinal area with radiation around to the left flank and left hip. This is impeding her ability to transfer and perform activities of daily living as well as to ambulate. With localize modalities as well as increased movement and muscle strengthening, hopefully the pain can be managed better. She apparently has tried a pain patch, presumably fentanyl, without benefit. (3) Degenerative joint disease of knee Qualifiers: Osteoarthritis type: primary Laterality: bilateral Qualified Code(s): M17.0 - Bilateral primary osteoarthritis of knee Current visit: Yes Status: Chronic She has bilateral knee pain and has received injections into the knees with corticosteroids. Her knee pain and degeneration are likely contributing to her difficulty with transfers and ambulation. With additional strengthening of the musculature and ligaments around the knee compartment, hopefully the pain can be alleviated. (4) DM II (diabetes mellitus, type II), controlled Qualifiers: Diabetes mellitus complication status: without complication Diabetes mellitus termite exterminator helper insulin use: without termite exterminator helper use Qualified Code(s): E11.9 - Type 2 diabetes mellitus without complications Current visit: Yes Status: Chronic Patient has history of type 2 diabetes mellitus on metformin only. Reported A1c is around 5% in the last several months. She denies any symptoms of hypoglycemia. She is at risk for hyperglycemia and hypoglycemia in view of the varying energy demands while on rehabilitation. (5) Hypertension Qualifiers: Hypertension type: essential hypertension Qualified Code(s): I10 - Essential (primary) hypertension Current visit: Yes Status: Chronic (6) Right hand weakness Current visit: Yes Status: Chronic She has reduced ability to utilize the right hand. Extension of the right fingers is limited to nonexistent. This is a barrier to her functional improvement. DVT Prophylaxis: SCD's, Lovenox Resuscitation Status: Full Code - Course Hospital Course: Bruno Duvall MD: - Interventions to Obtain Goals PT Treatment Plan: Balance/Proprioception, Functional Activities, Gait Training , Patient/Family Education OT Treatment Plan: ADL (Basic Care), Balance Training, IADL, Pt./Family Education, UE Functional Training (right hand, fingers strengthening and functional training.) Goals Progress/Modifications: This patient presents with multiple functional deficits including ADLs and transfers and ambulation. She has chronic pain that has been very difficult to control. This is predominantly related to her underlying spinal stenosis and chronic pain in the low back and left flank area. In addition she has medical problems including hypertension and diabetes mellitus type 2 along with degenerative changes of both knees. A multidisciplinary approach will be undertaken to include PT, OT as well as 24 rehabilitation nursing, dietitian in view of her diabetes and medical supervision.
--- NOTE | 2017-06-07 13:42 | IRU 24Hr Post Admit Eval ---
24 Hr Post Admission Physical - Relevant Changes Relevant Changes: No Reviewed: I have reviewed the patient's information and concur with the finding and results of the pre-admission screen. Certification: I certify the patient for rehabilitation. - Patient Condition (1) Debilitated Status: Chronic Code(s): R53.81 - Other malaise Classification: Present on IRF Admission, IRF Tx That Should Address Diagnosis, Diagnosis Requiring Medical Follow Up (2) Lumbar spinal stenosis Status: Chronic Qualifiers: Neurogenic claudication status: without neurogenic claudication Qualified Code(s): M48.061 - Spinal stenosis, lumbar region without neurogenic claudication Code(s): M48.06 - Spinal stenosis, lumbar region Classification: Present on IRF Admission, IRF Tx That Should Address Diagnosis, Diagnosis Requiring Medical Follow Up (3) Degenerative joint disease of knee Status: Chronic Qualifiers: Osteoarthritis type: primary Laterality: bilateral Qualified Code(s): M17.0 - Bilateral primary osteoarthritis of knee Code(s): M17.9 - Osteoarthritis of knee, unspecified Classification: Present on IRF Admission, IRF Tx That Should Address Diagnosis, Diagnosis Requiring Medical Follow Up (4) DM II (diabetes mellitus, type II), controlled Status: Chronic Qualifiers: Diabetes mellitus complication status: without complication Diabetes mellitus technical designer insulin use: without technical designer use Qualified Code(s): E11.9 - Type 2 diabetes mellitus without complications Code(s): E11.9 - Type 2 diabetes mellitus without complications Classification: Present on IRF Admission, IRF Tx That Should Address Diagnosis, Diagnosis Requiring Medical Follow Up (5) Hypertension Status: Chronic Qualifiers: Hypertension type: essential hypertension Qualified Code(s): I10 - Essential (primary) hypertension Code(s): I10 - Essential (primary) hypertension Classification: Present on IRF Admission, IRF Tx That Should Address Diagnosis, Diagnosis Requiring Medical Follow Up (6) Right hand weakness Status: Chronic Code(s): R29.898 - Other symptoms and signs involving the musculoskeletal system Classification: Present on IRF Admission, IRF Tx That Should Address Diagnosis, Diagnosis Requiring Medical Follow Up - Prior Functional Status Lives With: Spouse Residence Type: Apartment/Private Home Assitive Devices: Four Wheeled Walker Prior Functional Status: Indep. at home or school, Indep. w/ all home ADL - Current Functional Status Current Level of Function: Current level of functioning is as follows: She requires moderate assistance for grooming, total assistance for bathing, maximal assistance for upper and lower body dressing, moderate assistance for toileting, maximal assist assistance for bed/chair/wheelchair transfers and toilet transfers. She requires total assistance for walking and wheelchair propulsion. She walks with a 4 wheeled rolling walker 30 feet. According to home health, she was previously able to complete fine motor ADLs using the right hand prior to surgery but now is unable to do that. She requires assistance with all ADLs and is unable to use the right hand functionally at present due to increased pain and reduced range of motion of the fingers. She does have history of falls and difficulty with home safety and is unable to ambulate independently due to gait and balance issues as well as strength and pain. Failed Alternative Therapy: Yes (home health physical therapy, occupational therapy and retirement.) Patient Requirements: The patient requires oversight by rehabilitation physician to manage their rehabilitation treatment plan and multidisciplinary approach to care that can only be provided in an IRF and requires a multidisciplinary approach to care, provided by professional PTs, OTs, STs, dieticians, RTs, rehabilitation nurses and is not available in lesser levels of care. Limitations Req: Mobility Impairment, ADL Impairment, Limited Mobility Physical Therapy Minutes: 90 Occupational Therapy Minutes: 90 Therapy: The patient is to receive therapy at least 5 days a week. ROM Deficit: Right Upper Extremity, Left Upper Extremity - Complications/Comorbidities Impact on Functional Outcomes: The patient's generalized debility and chronic pain in the low back may negatively impact her functional outcome. Barriers to Discharge: Weakness, Balance, Endurance, Pain Control - Plan to Avoid Complications Plan to Avoid Complications: The patient cannot receive this care in a lesser intensive setting such as Half-Way or Outpatient Therapy due to the patient requiring the following : The patient requires close monitoring of her blood sugars to avoid hypoglycemia and hyperglycemia as well as monitoring and treating her pain which has been a chronic and difficult to control problem. She requires a multidisciplinary approach with PT and OT with medical supervision..
[2017-06-07] MEDS: HYDROCODONE/APAP 10 MG/325 MG TABLET PO PRN ×2 (14:24→20:28)
[2017-06-07] MEDS: ENOXAPARIN 40 MG/0.4 ML INJECTION SQ SCH (14:35)
--- NOTE | 2017-06-07 16:17 | Consult Note ---
Consult Information - Data of Consult Requesting Physician: Bruno Duvall MD Primary Care Provider: RAJAT Lim with Dr. James Browne in [place], [place] - Consult Narrative Reason for consult: Medical mangement DM, HTN History of present illness: Irena is a 76 yr old female who has been residing at home in [facility] with her . She has been under the care of Home health and has had a significant decline over the past 3-4 months. She has multiple comorbidities including severe lumbar spinal stenosis with significant chronic pain. Despite outpatient therapy. Patient's functional status continued to decline, she was screened and accepted to the inpatient rehabilitation unit under care of Dr. Duvall for acute evaluation and therapy. Past Medical History Patient Stated Medical History Type II diabetes Hypertension GERD Constipation Severe lumbar stenosis Chronic pain Depression History of bladder cancer Right hand contractures secondary to trigger finger repair Medical History Updates: 1. Lumbar spinal stenosis. 2. Scoliosis. 3. Benign essential hypertension. 4. Reduced movement of right hand fingers, previously attributed to stroke although unconfirmed. 5. Diabetes mellitus type 2 on oral agents only, controlled by history. 6. Osteoarthritis involving bilateral knees. 7. Left shoulder pain possibly related to rotator cuff injury. 8. History of uterine cancer, treated with surgical removal and without known recurrence. 9. History of bladder cancer treated with surgical removal roughly 2012 without documentation of recurrence Surgical History: 1. Instrumentation with rods and screws to repair scoliosis and lumbar spinal stenosis 2009 Dr. Mehta in [place]. 2. Transurethral resection of bladder tumor, approximately 2012 with close monitoring and no evidence of recurrence. 3. Hysterectomy with bilateral salpingo-oophorectomy 1994 for uterine cancer. 4. Trigger finger repair right long finger February 2017 with subsequent nonuse of other fingers and right hand. EGD- 10/2016 Family History Updates: Parents both lived into their 90's. 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 James Browne in [place]. Review of Systems All systems PM: 10-point ROS was reviewed, no additional remarkable complaints except - Musculoskeletal Musculoskeletal: Present: as per HPI, back pain Musculoskeletal Comments: Chronic back pain, chronic right hand pain, acute right knee pain Medications Home Medications Medication Instructions Recorded Confirmed Type APAP/Diphenhydramine 500/25 1 tab PO HS PRN 06/07/17 06/07/17 History [Tylenol Pm] Aspirin [Pauline Advanced] 2 tab PO Q4H PRN 06/07/17 06/07/17 History CALCIUM CARBONATE Chewable [Tums] 1 tab PO Q6H PRN 06/07/17 06/07/17 History Cyclobenzaprine [Flexeril] 1 tab PO Q8H PRN 06/07/17 06/07/17 History Duloxetine HCl [Duloxetine HCl] 30 mg PO DAILY 06/07/17 06/07/17 History Famotidine [Pepcid] 1 tab PO DAILY 06/07/17 06/07/17 History Ferrous Sulfate [Iron] 325 mg PO BIDWM 06/07/17 06/07/17 History Hydrocodone/APAP 10/325 [[place] 1 tab PO Q6H PRN 06/07/17 06/07/17 History 10/325] Lisinopril [Prinivil] 10 mg PO DAILY 06/07/17 06/07/17 History Metformin [Glucophage] 500 mg PO BIDWM 06/07/17 06/07/17 History Ondansetron HCl 4 mg PO Q8H PRN 06/07/17 06/07/17 History PEG 3350 17gm PACKET [Miralax] 34 gm PO DAILY 06/07/17 06/07/17 History Potassium 99 mg PO DAILY 06/07/17 06/07/17 History Allergies Allergy/AdvReac Type Severity Reaction Status Date / Time Lehczes-Zxr-Dcp Reductase Allergy Verified 06/07/17 11:04 Inhibitor Exam Vital Signs: Temperature 97.4 F 06/07/17 10:52 Pulse Rate 87 06/07/17 10:52 Respiratory Rate 20 06/07/17 10:52 Blood Pressure 122/77 06/07/17 10:52 Pulse Oximetry 90 06/07/17 10:52 Height/Weight/BMI: Height 1.57 m Weight 81 kg Body Mass Index 32.6 - Constitutional Present: no acute distress, well nourished, well developed - Routine HEENT Exam Eye: Present: EOMI ENT: Present: mucous membranes moist, dentition normal - Routine Respiratory Exam Present: CTA bilaterally. Absent: wheezes - Routine Cardiovascular Exam Present: RRR. Absent: murmur - Routine Abdominal Exam Present: soft, normoactive bowel sounds, non distended. Absent: tenderness - Routine Extremities Exam Present: normal capillary refill - Routine Back/Spine/Pelvis Exam Back/Spine: Present: paraspinal tenderness Comments: Right hand contracture, chronic back pain, right medial knee pain - Routine Skin Exam Present: intact, dry, warm - Routine Neurological Exam Present: alert, oriented X3, CN II-XII intact - Routine Psychiatric Exam Present: normal affect Assessment and Plan (1) Debilitated Current visit: Yes Status: Chronic (2) Lumbar spinal stenosis Current visit: Yes Status: Chronic Assessment and Plan: Impression Debility Right knee pain- Recent fall Lumbar spine stenosis Chronic pain Type II diabetes Hypertension Right hand weakness Plan Agree with admission to IRU under the care of Dr. Duvall for general debility Appreciate hospital consultation for medical management of existing comorbidities. In light of recent fall and acute right medial knee pain with ecchymosis, we will obtain an x-ray of the right knee. Monitor Accu-Cheks, and continue with home metformin 500 milligrams twice a day. Monitor blood pressure, continue on lisinopril. Pepcid daily for GI protection given history of GERD Lovenox subcutaneous daily for DVT prophylaxis Patient does wish to be a full code and this orders written Pain management as per Dr. Duvall recommendations. Encourage work with PT and OT for ongoing strengthening and improve function. The hospitalist services will continue to follow patient and medical management existing comorbidities during her stay on the rehabilitation unit. At time of discharge Dr. James Browne DVT Prophylaxis: Lovenox GI Prophylaxis: Pepcid Resuscitation Status: Full Code - Physician Narrative Narrative: Date: 06/07/17 Time: 1612 Hospital Course Summary Disclaimer: The visit summary below is not to be considered part of the above Progress Note. Hospital Course: Impression Debility Right knee pain- Recent fall Lumbar spine stenosis Chronic pain Type II diabetes Hypertension Right hand weakness Plan Agree with admission to IRU under the care of Dr. Duvall for general debility Appreciate hospital consultation for medical management of existing comorbidities. In light of recent fall and acute right medial knee pain with ecchymosis, we will obtain an x-ray of the right knee. Monitor Accu-Cheks, and continue with home metformin 500 milligrams twice a day. Monitor blood pressure, continue on lisinopril. Pepcid daily for GI protection given history of GERD Lovenox subcutaneous daily for DVT prophylaxis Patient does wish to be a full code and this orders written Pain management as per Dr. Duvall recommendations. Encourage work with PT and OT for ongoing strengthening and improve function. The hospitalist services will continue to follow patient and medical management existing comorbidities during her stay on the rehabilitation unit. At time of discharge Dr. James Browne
[2017-06-07] MEDS: FERROUS SULFATE 324 MG TABLET PO SCH (18:06)
[2017-06-07] MEDS: ASPIRIN, BUFFERED 325 MG TABLET PO PRN (18:06)
[2017-06-07] MEDS: METFORMIN 500 MG TABLET PO SCH (18:06)
[2017-06-08] MEDS: ASPIRIN, BUFFERED 325 MG TABLET PO PRN ×4 (01:28→19:09)
[2017-06-08] MEDS: HYDROCODONE/APAP 10 MG/325 MG TABLET PO PRN ×2 (02:26→08:38)
[2017-06-08] MEDS: CYCLOBENZAPRINE 10 MG TABLET PO PRN (08:05)
[2017-06-08] MEDS: LISINOPRIL 10 MG TABLET PO SCH (08:37)
[2017-06-08] MEDS: FERROUS SULFATE 324 MG TABLET PO SCH ×2 (08:37→18:10)
[2017-06-08] MEDS: FAMOTIDINE 20 MG TABLET PO SCH (08:37)
[2017-06-08] MEDS: POLYETHYL GLYCOL 3350 17gm PACKET PO SCH (08:37)
[2017-06-08] MEDS: METFORMIN 500 MG TABLET PO SCH ×2 (08:38→18:10)
[2017-06-08] MEDS: ENOXAPARIN 40 MG/0.4 ML INJECTION SQ SCH (08:39)
[2017-06-08] MEDS ORDERED: DULOXETINE 30 MG CAPSULE PO SCH (09:00)
--- NOTE | 2017-06-08 09:03 | XRay Report ---
Indication: fall, medial right knee tenderness, ecchymosis PROCEDURE: XR knee RT 2V: Encounter: Initial Comparison: None Findings: Depression of the lateral tibial plateau. Severe osteoarthritis. Exam is limited due to suboptimal positioning of the AP view. Impression: Depression of the lateral tibial plateau could represent acute or chronic impaction fracture. .
--- NOTE | 2017-06-08 10:30 | IRU Progress Note ---
- Subjective/Serverity of Illness Date: 06/08/17 Ms. Magana requested that she be dismissed last night. I spent time on the phone with the nurse discussing this. Patient states that she was under the impression that we would do more for her here on the rehabilitation unit rather than having her do the work. The nurse was able to clarify this with her and she is now willing to stay. I evaluated the patient in her room this morning. She says that she is tired and she is hurting a lot. Has pain in the left lateral hip area predominantly and this is worse when she is sitting. It is better when she is lying down. She denies any chest pain or shortness of breath. She reports her appetite is poor. She reports that pain management is difficult. She has tried what sounds like a Duragesic patch in the past without benefit. She is on hydrocodone. I told that we would switch to Percocet and give it to her prior to the therapy sessions to see if that will take the edge off. We will also increase duloxetine to 60 mg daily to see if that will help with her pain management. In addition she requests assistance with movement and transfers etc. Therapist is present and indicates that the patient needs to do more this for herself as she learns how to do it better. Brief therapy update: Patient desires to get back home and use her own facilities. She is just getting started with therapy. An area on the right posterior calf is noted which is red. It is minimally warm but there is a sense of extreme dryness of the skin in this area. Palpation does not provide any pain. It is very superficial in terms of the redness and I think this is more likely a dry skin issue rather than true cellulitis. She is afebrile. In addition, right knee x-ray was done indicating possible tibial plateau fracture, acute or chronic. Has pain in both knees so I'm not certain the significance of this. Hospitalist service is involved and will evaluate. Update on medical issues were actively managing and monitorin. Lumbar spinal stenosis with localized and radicular pain: Continues to have virtually uncontrolled pain due to the lumbar spinal stenosis with spinal cord involvement indicated by radicular pain. Her gait is significantly impaired because of this. She has imbalance. In addition she has impaired motor control particularly of the left leg which she states nearly "gives out" on her on a frequent basis. 2. Diabetes mellitus type 2, not on insulin, controlled: Blood sugars are reviewed and are stable and in the 170 range. 3.Hypertension: Blood pressure is well controlled at present. Exam Vital Signs: Temperature 97.7 F 06/07/17 20:00 Pulse Rate 97 06/08/17 08:00 Respiratory Rate 12 06/08/17 08:00 Blood Pressure 132/74 06/08/17 08:00 Pulse Oximetry 97 06/08/17 08:00 Height/Weight/BMI: Height 1.57 m Weight 81 kg Body Mass Index 32.6 - Constitutional Present: moderate distress, well nourished, well developed, obese. Absent: cooperative (was complaining last night and this morning of our lack of assistance with her transfers etc. We explained that our goal is to help her do more for herself.) - Routine HEENT Exam Head: Present: normocephalic, atraumatic Eye: Present: EOMI ENT: Present: mucous membranes moist, oropharynx clear Comments: Left eye lid ptosis - Routine Neck Exam Present: supple - Routine Respiratory Exam Present: CTA bilaterally. Absent: respiratory distress, wheezes, crackles - Routine Cardiovascular Exam Present: RRR, S1, S2. Absent: murmur - Routine Abdominal Exam Present: soft, normoactive bowel sounds, non distended. Absent: tenderness - Routine Extremities Exam Present: no edema Comments: Mild superficial redness noted in a large area involving the right posterior calf. Extremely dry skin and flaking also noted. Somewhat warm although totally nontender and she is afebrile. - Routine Skin Exam Present: dry, warm Comments: Please see above discussion regarding her right calf. - Routine Neurological Exam Present: alert, oriented X3, CN II-XII intact - Routine Psychiatric Exam Present: normal affect, anxious. Absent: good insight, good judgment Results IRU - Labs Labs: Reviewed laboratory. Her MCV is elevated with normal hemoglobin. RDW also elevated. Blood sugars reviewed. IRU A/P (1) Debilitated Current visit: Yes Status: Chronic Patient has evidence for significant functional debility from her lumbar spinal stenosis resulting in impaired gait, balance, motor impairment in the left lower leg and uncontrolled pain. She expressed concern that we were not doing enough for her in terms of assisting her with transfers etc. We are encouraging her to do as much as she can in a safe manner and we are instructing her how to do this. (2) Lumbar spinal stenosis Qualifiers: Neurogenic claudication status: without neurogenic claudication Qualified Code(s): M48.061 - Spinal stenosis, lumbar region without neurogenic claudication Current visit: Yes Status: Chronic Pain is not well controlled. We will switch to Percocet, increase duloxetine and dose Percocet prior to her therapy sessions. (3) Degenerative joint disease of knee Qualifiers: Osteoarthritis type: primary Laterality: bilateral Qualified Code(s): M17.0 - Bilateral primary osteoarthritis of knee Current visit: Yes Status: Chronic Abnormal knee radiograph noted. I will defer to the hospitalists in this regard. (4) DM II (diabetes mellitus, type II), controlled Qualifiers: Diabetes mellitus complication status: without complication Diabetes mellitus fpc insulin use: without manager terminal use Qualified Code(s): E11.9 - Type 2 diabetes mellitus without complications Current visit: Yes Status: Chronic Blood sugars are reviewed and look good. (5) Hypertension Qualifiers: Hypertension type: essential hypertension Qualified Code(s): I10 - Essential (primary) hypertension Current visit: Yes Status: Chronic (6) Right hand weakness Current visit: Yes Status: Chronic DVT Prophylaxis: Lovenox Resuscitation Status: Full Code - Course Hospital Course: Bruno Duvall MD: 06/08/17 10:34 Getting started with therapy. Pain not well controlled. Increase duloxetine, switch to Percocet. - Interventions to Obtain Goals PT Treatment Plan: Balance/Proprioception, Electrical Stimulation, Functional Activities, Gait Training, Manual Therapy, Patient/Family Education, Soft Tissue Massage, Therapeutic Exercise, Ultrasound OT Treatment Plan: ADL (Basic Care), Balance Training, Pt./Family Education, Ther. Exercise for ADL Goals Progress/Modifications: Time spent with patient and on floor reviewing data and documentin min Barriers to dismissal: Pain, deconditioning, debility, weakness, imbalance, motivation Medical decision-making: Patient is quite complex. Her blood sugars and blood pressure are well controlled at present. However pain management is difficult. We will switch to Percocet from the hydrocodone to see if that helps anymore. Has apparently tried fentanyl patch without benefit. Pain primarily left lateral hip area and is worse with sitting. We will also increase duloxetine to 60 mg daily to help with pain management. Motivation is a concern and she told the nurse last night she thought she was coming here to get assistance with regard to being taking care of rather than for her to put out the effort to get stronger etc. This was clarified with her. In addition, she does have some redness in the right calf. I think this is related to some dry skin and we will try some lubricating lotion. We will monitor for any worsening in any evidence of actual cellulitis.
[2017-06-08] MEDS: CETAPHIL MOISTURIZING TOP SCH (11:25)
[2017-06-08] MEDS: OXYCODONE/APAP 7.5 MG/325 MG TABLET PO PRN ×3 (11:25→21:18)
--- NOTE | 2017-06-08 13:45 | IRU Plan of Care ---
[facility] Overall Plan of Care - Date Date: 06/08/17 - Patient Impairments (1) Debilitated Code(s): R53.81 - Other malaise Status: Chronic Classification: Present on IRF Admission, IRF Tx That Should Address Diagnosis, Diagnosis Requiring Medical Follow Up (2) Lumbar spinal stenosis Qualifiers: Neurogenic claudication status: with neurogenic claudication Qualified Code (s): M48.062 - Spinal stenosis, lumbar region with neurogenic claudication Code(s): M48.06 - Spinal stenosis, lumbar region Status: Chronic Classification: Present on IRF Admission, IRF Tx That Should Address Diagnosis, Diagnosis Requiring Medical Follow Up (3) DM II (diabetes mellitus, type II), controlled Qualifiers: Diabetes mellitus complication status: without complication Diabetes mellitus continuous churn buttermaker insulin use: without continuous churn buttermaker use Qualified Code(s): E11.9 - Type 2 diabetes mellitus without complications Code(s): E11.9 - Type 2 diabetes mellitus without complications Status: Chronic Classification: Present on IRF Admission, IRF Tx That Should Address Diagnosis, Diagnosis Requiring Medical Follow Up (4) Degenerative joint disease of knee Qualifiers: Osteoarthritis type: primary Laterality: bilateral Qualified Code(s): M17.0 - Bilateral primary osteoarthritis of knee Code(s): M17.9 - Osteoarthritis of knee, unspecified Status: Chronic Classification: Present on IRF Admission, IRF Tx That Should Address Diagnosis, Diagnosis Requiring Medical Follow Up (5) Hypertension Qualifiers: Hypertension type: essential hypertension Qualified Code(s): I10 - Essential (primary) hypertension Code(s): I10 - Essential (primary) hypertension Status: Chronic Classification: Present on IRF Admission, IRF Tx That Should Address Diagnosis, Diagnosis Requiring Medical Follow Up - Relevant Changes Relevant Changes: No Reviewed: I have reviewed the patient's information and concur with the finding and results of the pre-admission screen. Certification: I certify the patient for rehabilitation. - Medical Prognosis Medical Prognosis: Good Vital Signs: Last Vital Signs Temp 97.3 F 06/08/17 11:31 Pulse 97 06/08/17 08:00 Resp 12 06/08/17 08:00 BP 132/74 06/08/17 08:00 Pulse Ox 97 06/08/17 08:00 - Anticipated Interventions Anticipated Interventions: The patient requires inpatient IRF care for PT and OT for residuals remaining from lumbar spinal stenosis with uncontrolled pain, gait instability and imbalance resulting in muscular weakness and strength deficits. An individualized overall plan of care has been developed after careful review of the patient's preadmission screening, post admission physician evaluation and assessments of all therapy disciplines and/or other pertinent clinicians involved in treating the patient. This indicates medical necessity and rehabilitation necessity have been established through a thorough review of all available medical information. ROM Deficit: Left Lower Extremity Strength Deficits: Left Lower Extremity - Current Functional Status Failed Alternative Therapy: Yes (outpatient physical therapy, occupational therapy and longterm via home health) Patient Requires: The patient requires oversight by rehabilitation physician to manage their rehabilitation treatment plan and multidisciplinary approach to care that can only be provided in an IRF and requires a multidisciplinary approach to care, provided by professional PTs, OTs, STs, rehabilitation nurses, and may require STs, dieticians, and RTS. This is not available in lesser levels of care. Physical Therapy Minutes: 90 Occupational Therapy Minutes: 90 Therapy: The patient is to receive therapy at least 5 days a week. - Anticipated LOS/Outcomes Anticipated Functional Outcome: Expected functional improvements include: -- Modified independant to independant ambulation with or without assistive device -- Modified independant to independant ADL's with or without assistive device -- Return to pre-morbid level of mobility -- Maximize level of mobility and ADL's to decrease burden on any caregiver involved with this patient's care Anticipated Length of Stay (days): 14 Anticipated DC Destination: Home Health Service Home Safety Plan: The patient will be provided with the development of a Home Safety Plan for return to a home or home-like environment and and to ensure safety post discharge. - Plan to Avoid Complications Barriers to Attaining Goals: Weakness, Balance, Endurance, Pain Control Plan to Avoid Complications: The patient cannot receive this care in a lesser intensive setting such as Nursing Home or Outpatient Therapy due to the patient requiring the following : She requires close monitoring of her blood sugars because of risk of hypoglycemia or hyperglycemia in view of her varying energy expenditures while on rehabilitation. She requires a multidisciplinary approach including physical therapy and occupational therapy in view of her medical problems of diabetes and hypertension as well as uncontrolled pain. She requires 24 hour rehabilitation nursing to monitor her pain level and to provide adequate pain relief. She requires medical supervision in view of her multiple medical problems in addition to her chronic poorly controlled pain from lumbar spinal stenosis with neurogenic claudication.
[2017-06-08] MEDS: OXYCODONE/APAP 7.5 MG/325 MG TABLET PO SCH (14:36)
[2017-06-08] MEDS: SENNA + DOCUSATE TABLET PO SCH (21:18)
[2017-06-09] MEDS: OXYCODONE/APAP 7.5 MG/325 MG TABLET PO SCH ×2 (09:27→14:08)
[2017-06-09] MEDS ORDERED: MORPHINE SULFATE 4mg INJECTION IVP ONE (09:54)
[2017-06-09] MEDS ORDERED: MORPHINE SULFATE 4mg INJECTION IM ONE (09:54)
[2017-06-09] MEDS: ASPIRIN, BUFFERED 325 MG TABLET PO PRN (12:01)
[2017-06-09] MEDS: SENNA + DOCUSATE TABLET PO SCH ×2 (12:02→22:01)
[2017-06-09] MEDS: POLYETHYL GLYCOL 3350 17gm PACKET PO SCH (12:02)
[2017-06-09] MEDS: LISINOPRIL 10 MG TABLET PO SCH (12:03)
[2017-06-09] MEDS: FERROUS SULFATE 324 MG TABLET PO SCH ×2 (12:03→18:00)
[2017-06-09] MEDS: FAMOTIDINE 20 MG TABLET PO SCH (12:03)
[2017-06-09] MEDS: ENOXAPARIN 40 MG/0.4 ML INJECTION SQ SCH (12:05)
[2017-06-09] MEDS: CETAPHIL MOISTURIZING TOP SCH (12:06)
[2017-06-09] MEDS: DULOXETINE 60 MG CAPSULE PO SCH (12:57)
[2017-06-09] MEDS: METFORMIN 500 MG TABLET PO SCH ×2 (12:57→18:00)
[2017-06-09] MEDS ORDERED: FALL RISK - PHARMACY CONSULT XX ONE (13:39)
--- NOTE | 2017-06-09 17:25 | Progress Note ---
- Date 06/09/17 Subjective: Mrs. Magana was seen first thing this morning due to her increased agitation and frustration regarding her "poor care" throughout the night. She complains of severe back and left leg pain which she states is chronic for her but states that she did not receive any pain medication through the night and is now wanting to leave AMA. She expressed significant anger and frustration regarding the care she received over night stating that her nurse last night "didn't even change my clothes before bed or change my brief all night". When records were reviewed, nursing notes indicated that the patient had refused pain control and was not cooperative with cares, though the patient denies ever being offered such cares. Due to her significant pain which appeared to be her primary concern, an IV was placed and she was given Valium 5mg IV x 1 dose with some improvement. She was able to rest throughout the morning as therapy was placed on hold. Nursing reports that when she woke, she accused her of leaving her "here" though it was witness that he told her he was going home to tend to the animals and the house while she rested. Throughout the day, she struggled at time with pain control, but gained some relief with her PRN Percocet as well as a single dose of morphine 2mg IV. She was able to participate in therapy at a limited capacity due to her pain. She has been observed frequently refusing to participate and stating "I can't" often. Her appetite is stable but no bowel movement since admission. Objective Vital signs: Temperature 98.2 F 06/09/17 00:00 Pulse Rate 81 06/09/17 11:00 Respiratory Rate 20 06/09/17 11:00 Blood Pressure 148/81 H 06/09/17 11:00 Pulse Oximetry 96 06/09/17 11:00 Height/Weight/BMI: Height 5 ft 2 in Weight 178 lb 9.191 oz Body Mass Index 32.6 - Constitutional Present: mild distress, obese, agitated - Routine HEENT Exam Head: Present: normocephalic, atraumatic Eye: Present: PERRL. Absent: conjunctival icterus ENT: Present: mucous membranes moist - Routine Respiratory Exam Present: CTA bilaterally. Absent: rales, rhonchi, stridor, wheezes, crackles - Routine Cardiovascular Exam Present: RRR, S1, S2 - Routine Abdominal Exam Present: soft, normoactive bowel sounds, non distended, non tender Comments: obese - Routine Extremities Exam Present: edema (trace), pulses intact Comments: limited ROM due to pain - Routine Back/Spine/Pelvis Exam Back/Spine: Absent: vertebral tenderness Comments: limited ROM due to pain - Routine Musculoskeletal Exam Musculoskeletal: Present: limited range of motion - Routine Skin Exam Present: dry, warm. Absent: jaundice Comments: afebrile - Routine Neurological Exam Present: alert, oriented X3, moving all extremities, normal speech - Routine Lymphatic Exam Lymphatic: Absent: lymphedema - Routine Psychiatric Exam Present: agitated Comments: refusal to participate in cares Results - Labs CBC & Chem 7: 06/08/17 04:39 06/08/17 04:39 Assessment and Plan (1) Debilitated Current visit: Yes Status: Chronic (2) Lumbar spinal stenosis Current visit: Yes Status: Chronic Assessment and Plan: Impression Debility Right knee pain- Recent fall Lumbar spine stenosis Chronic pain Type II diabetes Hypertension Right hand weakness Plan - 06/09/17 Irena continues to struggle with significant pain control and has repeatedly threatened to leave the unit AMA due to lack of perceived adequate pain control. An IV was placed and she was given Valium 5mg IV x 1 dose as well as Morphine 2mg IV x 1 dose over the course of the day in addition to her PRN and scheduled medications with some temporary improvement. She continues to refuse to participate in self care and limits her participation in therapies due to her pain. Concern that IRU therapies may be too aggressive as she may succeed more in less intensive environment such as SNU. Will continue with therapies and pain control per Dr. Duvall. Continue to encourage participation in therapies for improvement in strength and functional abilities. Blood sugars have been well controlled. Continue home metformin 500mg BID and BGMs. Blood pressure stable. Continue home lisinopril. Pepcid daily for GI protection given history of GERD Lovenox subcutaneous daily for DVT prophylaxis Labs on admission were unremarkable. Will monitor periodically throughout admission. Folate on low-end of normal. Will start folate daily. DVT Prophylaxis: Lovenox Resuscitation Status: Full Code - Time spent with patient Time with patient PN: 70 minutes - Physician Narrative Physician: Kika Strong MD Narrative: Date: 06/09/17 Time: 1715 Hospital Course Summary Disclaimer: The visit summary below is not to be considered part of the above Progress Note. Hospital Course: Impression Debility Right knee pain- Recent fall Lumbar spine stenosis Chronic pain Type II diabetes Hypertension Right hand weakness Plan Agree with admission to IRU under the care of Dr. Duvall for general debility Appreciate hospital consultation for medical management of existing comorbidities. In light of recent fall and acute right medial knee pain with ecchymosis, we will obtain an x-ray of the right knee. Monitor Accu-Cheks, and continue with home metformin 500 milligrams twice a day. Monitor blood pressure, continue on lisinopril. Pepcid daily for GI protection given history of GERD Lovenox subcutaneous daily for DVT prophylaxis Patient does wish to be a full code and this orders written Pain management as per Dr. Duvall recommendations. Encourage work with PT and OT for ongoing strengthening and improve function. The hospitalist services will continue to follow patient and medical management existing comorbidities during her stay on the rehabilitation unit. At time of discharge Dr. James Browne Plan - 06/09/17 Irena continues to struggle with significant pain control and has repeatedly threatened to leave the unit AMA due to lack of perceived adequate pain control. An IV was placed and she was given Valium 5mg IV x 1 dose as well as Morphine 2mg IV x 1 dose over the course of the day in addition to her PRN and scheduled medications with some temporary improvement. She continues to refuse to participate in self care and limits her participation in therapies due to her pain. Concern that IRU therapies may be too aggressive as she may succeed more in less intensive environment such as SNU. Will continue with therapies and pain control per Dr. Duvall. Continue to encourage participation in therapies for improvement in strength and functional abilities. Blood sugars have been well controlled. Continue home metformin 500mg BID and BGMs. Blood pressure stable. Continue home lisinopril. Pepcid daily for GI protection given history of GERD Lovenox subcutaneous daily for DVT prophylaxis Labs on admission were unremarkable. Will monitor periodically throughout admission. Folate on low-end of normal. Will start folate daily.
[2017-06-09] MEDS: OXYCODONE/APAP 7.5 MG/325 MG TABLET PO PRN ×2 (18:00→22:02)
[2017-06-09] MEDS: SALINE FLUSH 10ml SYRINGE IV PRN (22:13)
[2017-06-10] MEDS: OXYCODONE/APAP 7.5 MG/325 MG TABLET PO PRN ×5 (02:08→22:06)
[2017-06-10] MEDS: FERROUS SULFATE 324 MG TABLET PO SCH ×2 (08:51→17:30)
[2017-06-10] MEDS: SENNA + DOCUSATE TABLET PO SCH ×2 (08:51→22:01)
[2017-06-10] MEDS: FAMOTIDINE 20 MG TABLET PO SCH (08:51)
[2017-06-10] MEDS: ASPIRIN, BUFFERED 325 MG TABLET PO PRN ×3 (08:51→17:29)
[2017-06-10] MEDS: LISINOPRIL 10 MG TABLET PO SCH (08:51)
[2017-06-10] MEDS: METFORMIN 500 MG TABLET PO SCH ×2 (08:51→17:29)
[2017-06-10] MEDS: FOLIC ACID 1 MG TABLET PO SCH (08:51)
[2017-06-10] MEDS: DULOXETINE 60 MG CAPSULE PO SCH (08:51)
[2017-06-10] MEDS: ENOXAPARIN 40 MG/0.4 ML INJECTION SQ SCH (08:52)
[2017-06-10] MEDS: SALINE FLUSH 10ml SYRINGE IV PRN (08:52)
[2017-06-10] MEDS: OXYCODONE/APAP 7.5 MG/325 MG TABLET PO SCH ×2 (09:08→14:18)
[2017-06-10] MEDS: CETAPHIL MOISTURIZING TOP SCH (10:10)
[2017-06-10] MEDS: POLYETHYL GLYCOL 3350 17gm PACKET PO SCH (10:10)
--- NOTE | 2017-06-10 10:26 | IRU Progress Note ---
- Subjective/Serverity of Illness Date: 06/10/17 Ms. Magana reports this morning that her pain in her left hip area is "excruciating." I was Informed yesterday from various caregivers regarding her situation yesterday. She had initially refused therapy and was threatening to leave AGAINST MEDICAL ADVICE. This was apparently due to pain management. I appreciate the assistance of the hospitalist service (FRAN Navarro) who was able to provide additional pain management with the use of intravenous Valium plus morphine. We held therapies yesterday morning and resumed in the afternoon. She seemed to do reasonably well in the afternoon. I again asked her to describe the discomfort. She states it is in the left posterior hip area radiating down the left leg to the area of the knee. It is relieved by lying on her right side with the left leg over the right leg. I palpated the greater trochanteric bursa and there is no discomfort in that area. It appears to be mostly present in the left posterior buttock and down the left posterior leg to the knee level. Physical therapy worked with her with some local modalities and stretching yesterday which I think may have helped as well. Brief therapy update: For occupational therapy she was not desirous of working with the therapist due to pain initially. Ultimately she was able to work with therapy in the afternoon. For transfers she is requiring moderate assistance. Upper body dressing requires total assistance as does lower body dressing. Toilet assist is at maximum assist level. For physical therapy she does complain of discomfort as well. Bed/chair/wheelchair transfers are at maximum assistance. She is able to ambulate 44 feet with a front-wheeled walker at total assist level. Update on medical issues were actively managing and monitorin. Lumbar spinal stenosis with localized and radicular pain: Pain management is difficult. She is receiving Percocet 7.5 mg typically 5-6 per day. She is getting one twice a day on a regular basis prior to therapies as well as getting one every 4 hours as needed. Denies any nausea or vomiting at present. 2. Diabetes mellitus type 2, not on insulin, controlled: Sugars are controlled at the present time. 3.Hypertension: Blood pressure is well controlled at present. Exam Vital Signs: Temperature 98.4 F 06/10/17 08:00 Pulse Rate 110 H 06/10/17 08:00 Respiratory Rate 18 06/10/17 08:00 Blood Pressure 122/66 06/10/17 08:00 Pulse Oximetry 95 06/10/17 08:00 Height/Weight/BMI: Height 1.57 m Weight 81 kg Body Mass Index 32.6 - Constitutional Present: moderate distress, well nourished, well developed. Absent: cooperative - Routine HEENT Exam Head: Present: normocephalic Eye: Present: EOMI ENT: Present: mucous membranes moist - Routine Neck Exam Present: supple - Routine Respiratory Exam Present: CTA bilaterally. Absent: dyspnea, respiratory distress, rhonchi, stridor, wheezes, crackles - Routine Cardiovascular Exam Present: RRR, S1, S2. Absent: murmur - Routine Abdominal Exam Present: soft, normoactive bowel sounds, non distended. Absent: tenderness - Routine Extremities Exam Present: no edema. Absent: cyanosis, clubbing - Routine Back/Spine/Pelvis Exam Back/Spine: Absent: full ROM - Routine Skin Exam Present: dry, warm - Routine Neurological Exam Present: alert, oriented X3, CN II-XII intact - Routine Psychiatric Exam Present: normal affect, anxious. Absent: cooperative, good insight, good judgment IRU A/P (1) Debilitated Current visit: Yes Status: Chronic Patient continues to display significant debilitation and reduction in ability to perform ADLs and ambulation. Please see above discussion with regard to progress. Pain is a significant limiting factor. (2) Lumbar spinal stenosis Qualifiers: Neurogenic claudication status: with neurogenic claudication Qualified Code (s): M48.062 - Spinal stenosis, lumbar region with neurogenic claudication Current visit: Yes Status: Chronic Continues to complain of pain mainly in the left posterior buttock down the left leg to the level of the knee. Most comfortable position is with the left leg over the right leg with the patient slightly lying on her right side. Progress is difficult due to pain. She is on Percocet which I think may be helping more than the previous hydrocodone. (3) DM II (diabetes mellitus, type II), controlled Qualifiers: Diabetes mellitus complication status: without complication Diabetes mellitus terminal operator insulin use: without nursing home use Qualified Code(s): E11.9 - Type 2 diabetes mellitus without complications Current visit: Yes Status: Chronic (4) Degenerative joint disease of knee Qualifiers: Osteoarthritis type: primary Laterality: bilateral Qualified Code(s): M17.0 - Bilateral primary osteoarthritis of knee Current visit: Yes Status: Chronic (5) Hypertension Qualifiers: Hypertension type: essential hypertension Qualified Code(s): I10 - Essential (primary) hypertension Current visit: Yes Status: Chronic DVT Prophylaxis: Lovenox Resuscitation Status: Full Code - Course Hospital Course: Bruno Duvall MD: 06/08/17 10:34 Getting started with therapy. Pain not well controlled. Increase duloxetine, switch to Percocet. 06/10/17 10:28 There is variable cooperation with therapy. The patient does exhibit a lot of pain in the left hip area. She is tolerating the additional duloxetine as well as the switch to Percocet. Appetite is borderline. - Interventions to Obtain Goals PT Treatment Plan: Balance/Proprioception, Electrical Stimulation, Functional Activities, Gait Training, Manual Therapy, Patient/Family Education, Soft Tissue Massage, Therapeutic Exercise, Ultrasound OT Treatment Plan: ADL (Basic Care), Balance Training, Pt./Family Education, Ther. Exercise for ADL Goals Progress/Modifications: Time spent with patient and on floor reviewing data and documentin min Barriers to dismissal: Pain, motivation, strength/endurance Medical decision-making: The patient states that she has tried a pain patch in the past without benefit. She has also tried epidural steroids per her report and these did not help any. Pain management is very difficult. She complains of "excruciating" pain even though she is lying in bed appearing to be reasonably comfortable. She does not cooperate with therapy or nursing from time to time. We are working on improved pain management as well as local modalities to improve her progress. Multi display, persistent and to assess potential for improvement. Multiple phone calls yesterday regarding the patient and her threat to leave against our advice. Appreciate input of the hospitalist service.
[2017-06-10] MEDS: CYCLOBENZAPRINE 10 MG TABLET PO PRN (12:04)
--- NOTE | 2017-06-10 13:37 | IRU Team Meeting ---
IRU Team Meeting - Nursing Bladder Assistive Devices Utilized:: Absorbent Pad Bladder Management Level of Assist: Total Assistance Bladder Frequency of Accidents: No accidents Bowel Assistive Devices Utilized:: Medication, Absorbent Pad Bowel Management Level of Assist: Modified Independent Bowel Frequency of Accidents: No accidents Vital Signs: Vital Signs - 24 hr 06/09/17 21:30 06/10/17 08:00 Temperature 98.3 F 98.4 F Pulse Rate 90 110 H Respiratory Rate 16 18 Blood Pressure 117/53 122/66 Pulse Oximetry 94 95 Current Medications: Acetaminophen/Diphenhydramine HCl (Tylenol Pm) 1 tab PO HS PRN PRN Reason: Sleep Aspirin Buffered (Ascriptin) 650 mg PO Q4H PRN PRN Reason: Pain Last Admin: 06/10/17 13:24 Dose: 650 mg Calcium Carbonate (Tums) 500 mg PO Q6H PRN PRN Reason: Indigestion Cyclobenzaprine HCl (Flexeril) 10 mg PO Q8H PRN PRN Reason: Muscle cramps Last Admin: 06/10/17 12:04 Dose: 10 mg Duloxetine HCl (Cymbalta) 60 mg PO DAILY [facility] Last Admin: 06/10/17 08:51 Dose: 60 mg Enoxaparin Sodium (Lovenox) 40 mg SQ DAILY [facility] Last Admin: 06/10/17 08:52 Dose: 40 mg Famotidine (Pepcid) 20 mg PO DAILY [facility] Last Admin: 06/10/17 08:51 Dose: 20 mg Ferrous Sulfate (Feosol) 324 mg PO BIDWM [facility] Last Admin: 06/10/17 08:51 Dose: 324 mg Folic Acid (Folate) 1 mg PO DAILY [facility] Last Admin: 06/10/17 08:51 Dose: 1 mg Lisinopril (Prinivil) 10 mg PO DAILY [facility] Last Admin: 06/10/17 08:51 Dose: 10 mg Magnesium Hydroxide (Mom) 30 ml PO DAILY PRN PRN Reason: Constipation Metformin HCl (Glucophage) 500 mg PO BIDWM [facility] Last Admin: 06/10/17 08:51 Dose: 500 mg Multi-Ingredient Lotion (Cetaphil) 1 applic TOP DAILY [facility] Last Admin: 06/10/17 10:10 Dose: 1 applic Ondansetron HCl (Zofran Po) 4 mg PO Q8H PRN PRN Reason: NAUSEA & VOMITING Last Admin: 06/10/17 08:52 Dose: 4 mg Oxycodone/Acetaminophen (Percocet 7.5/325) 1 tab PO Q4H PRN PRN Reason: Pain Last Admin: 06/10/17 10:10 Dose: 1 tab Oxycodone/Acetaminophen (Percocet 7.5/325) 1 tab PO BID@0700,1400 [facility] Last Admin: 06/10/17 09:08 Dose: Not Given Polyethylene Glycol (Miralax) 34 gm PO DAILY [facility] Last Admin: 06/10/17 10:10 Dose: 34 gm Potassium Chloride (K-Dur) 5 meq PO WB [facility] Last Admin: 06/10/17 08:51 Dose: 5 meq Senna/Docusate Sodium (Senna Plus Tablet) 2 tab PO BID [facility] Last Admin: 06/10/17 08:51 Dose: 2 tab Sodium Chloride (Iv Flush) 10 ml IV PRN PRN PRN Reason: Flushing Last Admin: 06/10/17 08:52 Dose: 10 ml Current Medical Issues: pain control, DM II, Hypertension Comments: I certify that I personally led the interdisciplinary team meeting and agree with comments, barriers and goals indicated. Team meeting was held in the patient's room with the patient and the following family members present: Humphrey (patient's spouse) Ms. Magana continues to struggle with pain control. She indicates she has tried a Duragesic patch in the past without benefit. Currently she is on Percocet (she was on hydrocodone at home). Nursing is attempting to stay on top of the pain with regard to regular dosing of the Percocet and with particular attention being paid to dosing it prior to therapy. Her blood sugars are monitored and are doing well. Her blood pressure is also adequately controlled at the present time. - Physical Therapy Bed, Chair, Wheelchair Transfer Assist: Maximal Assistance, 1 Person Assist Ambulation Ability: Total Assistance, 1 Person Assist Ambulation Distance: 30 Wheelchair Propulsion Ability: Patient Refuses Stair Climbing Ability: Patient Refuses Number of Steps Climbed: 1 Car Transfer Ability: Patient Refuses Comments: The patient has refused therapy on several occasions. She demonstrates low motivation to participate in activity because of her discomfort/pain. Local modalities have been instituted and there is some improved tolerance for activity after stretching etc. She is able to ambulate about 30 feet with total assistance of 1 person and bed/chair/which her transfers are performed with maximum assistance of 1 person. - Occupational Therapy Eating Ability: Stand By Assist/Supervision Grooming Ability: Moderate Assistance Bathing Ability: Total Assistance, 1 Person Assist Upper Body Dressing Ability: Maximal Assistance Lower Body Dressing Ability: Maximal Assistance Tub Transfer Assist: Patient Unsafe/Unable Toileting Assist: Maximal Assistance Toilet Transfer Assist: Modified Independent Comments: She also has declined occupational therapy on several occasions. She participates in less than half of treatment today. Patient does not follow directions, cues nor education for functional bed mobility. She states her only goal is to sew again. Indicates that her will assist her with ADLs. She does display anger and agitation and anxiety when assistance is not provided per her request. - Goals Physical Therapy Goals: 06/10/17 Goals: 1.) Implement stretching program to decrease pain - work toward pt performing independently. 2.) Amb 50 feet 08/28 CGA. 3.) Transfers SBA Occupational Therapy Goals: OT goals 06/10/17: 1.) UB dress 08/28. 2.) participation in ADL routine / RB. 2.) LB dress 08/28 - Barriers to Discharge Barriers to Attaining Goals: Endurance, Pain Control, Other (participation/ motivation) - Care Plan Anticipated Length of Stay (days): 7 Anticipated DC Destination: Home Health Service I have led this team conference and agree with the plan. Today we emphasized the importance of participating with therapy in an effort to improve functional independence for going home. We indicated that we would do everything we can to alleviate her pain but that pain may persist despite these best efforts. We did indicate that intravenous morphine will not be provided on an ongoing basis. She has apparently tried a Duragesic patch in the past without benefit. Encouragement to completely participate in therapy is given.
[2017-06-11] MEDS: OXYCODONE/APAP 7.5 MG/325 MG TABLET PO PRN ×3 (02:00→18:08)
[2017-06-11] MEDS: OXYCODONE/APAP 7.5 MG/325 MG TABLET PO SCH ×2 (06:39→13:49)
[2017-06-11] MEDS: ASPIRIN, BUFFERED 325 MG TABLET PO PRN (08:06)
[2017-06-11] MEDS: FAMOTIDINE 20 MG TABLET PO SCH (08:34)
[2017-06-11] MEDS: POLYETHYL GLYCOL 3350 17gm PACKET PO SCH (08:34)
[2017-06-11] MEDS: LISINOPRIL 10 MG TABLET PO SCH (08:34)
[2017-06-11] MEDS: FERROUS SULFATE 324 MG TABLET PO SCH ×2 (08:34→18:08)
[2017-06-11] MEDS: SENNA + DOCUSATE TABLET PO SCH ×2 (08:34→22:22)
[2017-06-11] MEDS: METFORMIN 500 MG TABLET PO SCH ×2 (08:35→18:08)
[2017-06-11] MEDS: DULOXETINE 60 MG CAPSULE PO SCH (08:35)
[2017-06-11] MEDS: CYCLOBENZAPRINE 10 MG TABLET PO PRN ×2 (08:35→22:32)
[2017-06-11] MEDS: ENOXAPARIN 40 MG/0.4 ML INJECTION SQ SCH (08:35)
[2017-06-11] MEDS: FOLIC ACID 1 MG TABLET PO SCH (08:35)
[2017-06-11] MEDS: CETAPHIL MOISTURIZING TOP SCH (08:37)
--- NOTE | 2017-06-11 10:13 | Progress Note ---
- Date 06/11/17 Subjective: Irena is seen this morning in conjunction with Dr. Duvall. She is seen while resting in her room, receiving a massage by PT to her lower back, and appears very relaxed. She reports that she slept well last night but admits to becoming agitated this morning following breakfast because she was left sitting too long in the dining room, waiting for nursing to bring her back to her room. She denies any new complaints and continues to complain of severe lower back pain which continues to limit her progress and participation in therapies. She denies any cough, congestion, shortness of breath, chest pain, nausea, vomiting or dysuria. Discussed at length with her additional pain control options including Duragesic patch to which she reports "I'm a guinne pig. I'll try anything." Also discussed the importance of continued participation in therapies to improve her strength and functional abilities. Discussed moving to SNU may be beneficial if the intensive therapy program in IRU is too much and she stated that she didn't want to go to SNU. She became slightly defensive stating that she is taking what she is told to take and eluded that she is doing everything she feels able to do. Encouraged her to become more proactive and independent in her cares. She states she does not have much of an appetite but her bowels are moving and she is eating well. Objective Vital signs: Temperature 98.2 F 06/11/17 07:55 Pulse Rate 79 06/11/17 07:55 Respiratory Rate 16 06/11/17 07:55 Blood Pressure 113/58 06/11/17 07:55 Pulse Oximetry 93 06/11/17 07:55 Height/Weight/BMI: Height 5 ft 2 in Weight 178 lb 9.191 oz Body Mass Index 32.6 Comments: resting in bed while receiving a massage by PT. - Constitutional Present: no acute distress, well nourished, well developed, obese, cooperative - Routine HEENT Exam Head: Present: normocephalic, atraumatic Eye: Present: PERRL. Absent: conjunctival icterus ENT: Present: mucous membranes moist - Routine Respiratory Exam Present: CTA bilaterally. Absent: rales, rhonchi, stridor, wheezes, crackles - Routine Cardiovascular Exam Present: RRR, S1, S2 - Routine Abdominal Exam Present: soft, normoactive bowel sounds, non distended, non tender - Routine Extremities Exam Present: pulses intact - Routine Back/Spine/Pelvis Exam Back/Spine: Absent: vertebral tenderness Comments: limited exam as she is receiving a massage on exam. - Routine Musculoskeletal Exam Musculoskeletal: Present: no clubbing or cyanosis, limited range of motion (due to back pain) - Routine Skin Exam Present: intact, dry, warm. Absent: jaundice Comments: afebrile - Routine Neurological Exam Present: alert, oriented X3, normal speech. Absent: facial asymmetry - Routine Lymphatic Exam Lymphatic: Absent: lymphedema - Routine Psychiatric Exam Present: cooperative Results - Labs CBC & Chem 7: 06/08/17 04:39 06/08/17 04:39 Assessment and Plan (1) Debilitated Current visit: Yes Status: Chronic (2) Lumbar spinal stenosis Current visit: Yes Status: Chronic Assessment and Plan: Impression Debility Right knee pain- Recent fall Lumbar spine stenosis Chronic pain Type II diabetes Hypertension Right hand weakness Plan - 06/11/17 Irena continues to struggle with pain control, though admits her pain is improved and continues to threatened to leave the unit AMA due to lack of perceived adequate pain control, often demanding to see a clinician. Discussed at length with patient and Dr. Duvall. Patient reports previously trying "a patch" for pain control without improvement. Patient is willing to try Duragesic pain control in addition to other pain medications. Dr. Duvall to continue to manage pain control and therapies. Continue to encourage participation in therapies as well as independent cares. Recommended patient ask her to bring up her "looser" pants so she is able better dress herself. Also recommended that she set an alarm in the AM to begin her morning cares independently in lieu of waiting for someone to wake her up. Concern for depression as well as possible cognitive decline as she is often unable to remember prior conversations and/or remembers situations significantly differently than how they occurred. Unclear if cognitive issues are secondary to medications or possibly underlying dementia. Will consult Dr. Rangel for further psychiatric evaluation and treatment recommendations. She is currently on Cymbalta 60mg which could possibly be increased. Treatment for depression may also assist in better pain control. Discussed at length concern that IRU therapies may be too aggressive for her and opened up the option of SNU which she refused. Blood sugars have been well controlled. Continue home metformin 500mg BID and BGMs. Blood pressure stable. Continue home lisinopril. Pepcid daily for GI protection given history of GERD Lovenox subcutaneous daily for DVT prophylaxis. Continue to provide safe and supportive environment. Monitor family closely for signs of resident caregiver burn-out. DVT Prophylaxis: SCD's, Lovenox GI Prophylaxis: Protonix Resuscitation Status: Full Code - Time spent with patient Time with patient PN: 35 minutes Coordination of Care: >50% of visit spent providing counseling/coordination of care - Physician Narrative Physician: Kika Strong MD Narrative: Date: 06/11/17 Time: 1008 Hospital Course Summary Disclaimer: The visit summary below is not to be considered part of the above Progress Note. Hospital Course: Impression Debility Right knee pain- Recent fall Lumbar spine stenosis Chronic pain Type II diabetes Hypertension Right hand weakness Plan Agree with admission to IRU under the care of Dr. Duvall for general debility Appreciate hospital consultation for medical management of existing comorbidities. In light of recent fall and acute right medial knee pain with ecchymosis, we will obtain an x-ray of the right knee. Monitor Accu-Cheks, and continue with home metformin 500 milligrams twice a day. Monitor blood pressure, continue on lisinopril. Pepcid daily for GI protection given history of GERD Lovenox subcutaneous daily for DVT prophylaxis Patient does wish to be a full code and this orders written Pain management as per Dr. Duvall recommendations. Encourage work with PT and OT for ongoing strengthening and improve function. The hospitalist services will continue to follow patient and medical management existing comorbidities during her stay on the rehabilitation unit. At time of discharge Dr. James Browne Plan - 06/09/17 Irena continues to struggle with significant pain control and has repeatedly threatened to leave the unit AMA due to lack of perceived adequate pain control. An IV was placed and she was given Valium 5mg IV x 1 dose as well as Morphine 2mg IV x 1 dose over the course of the day in addition to her PRN and scheduled medications with some temporary improvement. She continues to refuse to participate in self care and limits her participation in therapies due to her pain. Concern that IRU therapies may be too aggressive as she may succeed more in less intensive environment such as SNU. Will continue with therapies and pain control per Dr. Duvall. Continue to encourage participation in therapies for improvement in strength and functional abilities. Blood sugars have been well controlled. Continue home metformin 500mg BID and BGMs. Blood pressure stable. Continue home lisinopril. Pepcid daily for GI protection given history of GERD Lovenox subcutaneous daily for DVT prophylaxis Labs on admission were unremarkable. Will monitor periodically throughout admission. Folate on low-end of normal. Will start folate daily. Plan - 06/11/17 Irena continues to struggle with pain control, though admits her pain is improved and continues to threatened to leave the unit AMA due to lack of perceived adequate pain control, often demanding to see a clinician. Discussed at length with patient and Dr. Duvall. Patient reports previously trying "a patch" for pain control without improvement. Patient is willing to try Duragesic pain control in addition to other pain medications. Dr. Duvall to continue to manage pain control and therapies. Continue to encourage participation in therapies as well as independent cares. Recommended patient ask her to bring up her "looser" pants so she is able better dress herself. Also recommended that she set an alarm in the AM to begin her morning cares independently in lieu of waiting for someone to wake her up. Concern for depression as well as possible cognitive decline as she is often unable to remember prior conversations and/or remembers situations significantly differently than how they occurred. Unclear if cognitive issues are secondary to medications or possibly underlying dementia. Will consult Dr. Rangel for further psychiatric evaluation and treatment recommendations. She is currently on Cymbalta 60mg which could possibly be increased. Treatment for depression may also assist in better pain control. Discussed at length concern that IRU therapies may be too aggressive for her and opened up the option of SNU which she refused. Blood sugars have been well controlled. Continue home metformin 500mg BID and BGMs. Blood pressure stable. Continue home lisinopril. Pepcid daily for GI protection given history of GERD Lovenox subcutaneous daily for DVT prophylaxis. Continue to provide safe and supportive environment. Monitor family closely for signs of resident caregiver burn-out.
--- NOTE | 2017-06-11 11:13 | IRU Progress Note ---
- Subjective/Serverity of Illness Date: 06/11/17 I evaluated the patient today with FRAN Navarro present as well. Please see her note as well as mine. Essentially, the patient states that she had a good night but did take a pain pill in the middle of the night. She reports that today she was left in the chair too long at breakfast and for that reason had a lot of pain and spasm. Currently she is undergoing massage/myofascial release by physical therapy with benefit. She says that at times the pain is just too excruciating for her to participate. We did raise the issue of possible underlying depression and the fact that chronic pain does deplete serotonin. We indicated that there were perhaps options available and asked if she would be willing to see psychiatry. She indicated that that would be okay. Secondly, we talked about more predictable pain relief if we could place her on a Duragesic patch. She reports that she has tried this in the past without benefit. However I think it appropriate to give that a try. She denies any chest pain or shortness of breath. She reports her appetite is poor. She denies any abdominal pain. She is having bowel movements. Apart from her pain and willingness to participate, medically she is stable. Her blood sugars are reviewed and all look good. Her blood pressure looks good. Exam Vital Signs: Temperature 98.2 F 06/11/17 07:55 Pulse Rate 79 06/11/17 07:55 Respiratory Rate 16 06/11/17 07:55 Blood Pressure 113/58 06/11/17 07:55 Pulse Oximetry 93 06/11/17 07:55 Height/Weight/BMI: Height 1.57 m Weight 81 kg Body Mass Index 32.6 - Constitutional Present: no acute distress (she is lying in bed again with the left leg over the right. She appears to be totally comfortable at present and in no distress.) , well nourished, well developed, obese - Routine HEENT Exam Head: Present: normocephalic, atraumatic Eye: Present: EOMI ENT: Present: mucous membranes moist - Routine Neck Exam Present: supple - Routine Respiratory Exam Present: CTA bilaterally. Absent: dyspnea, respiratory distress, rhonchi, wheezes - Routine Cardiovascular Exam Present: RRR, S1, S2. Absent: murmur, S3, S4 - Routine Abdominal Exam Present: soft, normoactive bowel sounds, non distended. Absent: tenderness - Routine Extremities Exam Present: no edema - Routine Back/Spine/Pelvis Exam Back/Spine: Absent: full ROM - Routine Skin Exam Present: dry, warm - Routine Neurological Exam Present: alert, oriented X3, CN II-XII intact - Routine Psychiatric Exam Present: normal affect. Absent: cooperative IRU A/P (1) Debilitated Current visit: Yes Status: Chronic Patient continues to demonstrate severe generalized debilitation from immobility etc. She does have a lot of discomfort in the left hip area. We will address this with Duragesic patch, local modalities and continued range of motion and exercise. (2) Lumbar spinal stenosis Qualifiers: Neurogenic claudication status: with neurogenic claudication Qualified Code (s): M48.062 - Spinal stenosis, lumbar region with neurogenic claudication Current visit: Yes Status: Chronic (3) DM II (diabetes mellitus, type II), controlled Qualifiers: Diabetes mellitus complication status: without complication Diabetes mellitus fpc insulin use: without terminal press operator use Qualified Code(s): E11.9 - Type 2 diabetes mellitus without complications Current visit: Yes Status: Chronic We'll reduce the blood sugar monitoring to once daily. (4) Degenerative joint disease of knee Qualifiers: Osteoarthritis type: primary Laterality: bilateral Qualified Code(s): M17.0 - Bilateral primary osteoarthritis of knee Current visit: Yes Status: Chronic (5) Hypertension Qualifiers: Hypertension type: essential hypertension Qualified Code(s): I10 - Essential (primary) hypertension Current visit: Yes Status: Chronic DVT Prophylaxis: SCD's, Lovenox Resuscitation Status: Full Code - Course Hospital Course: Bruno Duvall MD: 06/08/17 10:34 Getting started with therapy. Pain not well controlled. Increase duloxetine, switch to Percocet. 06/10/17 10:28 There is variable cooperation with therapy. The patient does exhibit a lot of pain in the left hip area. She is tolerating the additional duloxetine as well as the switch to Percocet. Appetite is borderline. 06/11/17 11:17 Consultation with psychiatry with patient's permission. Add on Duragesic patch. Continue local modalities for pain as well. Encourage patient to participate 34 hours daily. - Interventions to Obtain Goals PT Treatment Plan: Balance/Proprioception, Electrical Stimulation, Functional Activities, Gait Training, Manual Therapy, Patient/Family Education, Soft Tissue Massage, Therapeutic Exercise, Ultrasound OT Treatment Plan: ADL (Basic Care), Balance Training, Pt./Family Education, Ther. Exercise for ADL Goals Progress/Modifications: Time spent with patient and on floor reviewing data and documentin min Barriers to dismissal: Pain, motivation, debilitation Medical decision-making: Patient continues to state that her will assist her with upper body dressing and in fact lower body dressing when she goes home. For this reason she does not see the point of learning how to do this. She also blames the fact that she does not have loosefitting clothing with her. We encouraged her to have her bring that in. We spent quite a bit of time with her today discussing her need to participate fully in the 3 hours of therapy daily. Also discussed pain management and indicated that we would do our best to control this although she will have to push through the pain and continue to participate if she wants to be independent. Finally, we did indicate the possibility of her not being able to tolerate 3 hours of therapy daily due to pain and for this reason she may do better at a lower level of care such as correction. I raised this issue and she absolutely declines. She does agree to see psychiatry.
--- NOTE | 2017-06-11 14:21 | Neuropsychiatric Consult ---
[facility] Date: 06/14/17 Requesting Physician: Cem Colunga Reason for Consultation: Capacity assessment Start Time: 11:00 Stop Time: 11:40 History of Present Illness: Patient is a 76-year-old , retired female admitted to the IRU for physical therapy and rehab. Her has been her long-time caregiver at home. Psychiatry was consulted as patient can become uncooperative and demanding at times, getting upset easily and threatening to leave [facility]. There is some question as to whether patient's behavior is due to dementia/sundowning vs. long-standing behavior patterns. If due to dementia, does she then retain capacity to make her own medical decisions at this point? On interview, patient is cooperative with me but mildly irritable. She answers most of the questions I have but only fpc participates in the SLUMS, often answering "I don't care." She denies symptoms consistent with severe depression , uncontrolled anxiety, bipolar disorder, psychosis. She denies SI or HI. She has various complaints about the staff and reports that she intentionally acts out in response. She denies any change in sleep or appetite. Of the questions patient answered on the SLUMS, she was able to do complex math in her head, name 15+ animals in one minute, correctly draw a clock and set a time. She did refuse some of the short-term memory questions, which could be covering some memory loss, but I can't confirm this nor do I think it is to the extent that it is causing the issues described above or would prevent her from making her own medical decisions at this point. Depression: Increased Anxiety, Increased Irritability [facility] Patient Stated Medical History Cerebrovascular Accident Yes: [employer] caused Rt hand issue Other HEENT Yes: wears glasses Hypertension Yes Diabetes Mellitus Type 2 Yes Constipation Yes Gastroesophageal Reflux Yes Disease Hx Incontinence Yes Sepsis Yes: 2017 Medical History Updates: 1. Lumbar spinal stenosis. 2. Scoliosis. 3. Benign essential hypertension. 4. Reduced movement of right hand fingers, previously attributed to stroke although unconfirmed. 5. Diabetes mellitus type 2 on oral agents only, controlled by history. 6. Osteoarthritis involving bilateral knees. 7. Left shoulder pain possibly related to rotator cuff injury. 8. History of uterine cancer, treated with surgical removal and without known recurrence. 9. History of bladder cancer treated with surgical removal roughly 2012 without documentation of recurrence Surgical History: 1. Instrumentation with rods and screws to repair scoliosis and lumbar spinal stenosis 2009 Dr. Mehta in [place]. 2. Transurethral resection of bladder tumor, approximately 2012 with close monitoring and no evidence of recurrence. 3. Hysterectomy with bilateral salpingo-oophorectomy 1994 for uterine cancer. 4. Trigger finger repair right long finger February 2017 with subsequent nonuse of other fingers and right hand. 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 Absent: abnormal sleep pattern, auditory hallucinations, homicidal ideation, hopelessness, paranoia, suicidal ideation, visual hallucinations Mental Status Exam Vitals: Last Vital Signs Temp 98.2 F 06/11/17 07:55 Pulse 79 06/11/17 07:55 Resp 16 06/11/17 07:55 BP 113/58 06/11/17 07:55 Pulse Ox 93 06/11/17 07:55 Height: 1.57 m Weight: 81.3 kg - Mental Status Exam Muscle Strength/Tone: Normal Dressing: Casual Grooming: Fair Attitude: Cooperative (mostly) Motor Activity: Normal Eye Contact: Fair Speech: Normal Volume: Normal Rhythm: Appropriate Rhythm Sensory: Alert Orientation: Oriented X4 Mood: Irritable (irritable affect, redirectable during interview) Rate of Thoughts: Appropriate Rate Thought Organization: Organized Associations: Intact Abstract Reasoning: Poor abstract reasoning Thought Content: Other (Annoyed with hospital staff out of proportion to complaints) Perception/Psychotic: Perception Normal Language: Naming Impaired Fund of Knowledge: [place]ak aware current events Memory: Other (May have some STM loss - unclear whether covering or simply being uncooperative) Suicidal Ideation: Denies Homicidal Ideation: Denies Insight: Limited Judgement: Fair Impulse Control: Fair - Laboratory Result Diagrams: 06/14/17 04:23 06/14/17 04:23 Laboratory Results - last 24 hr 06/10/17 06/11/17 06/11/17 22:01 06:38 10:09 Glucometer 134 93 115 Assessment and Plan (1) Adjustment disorder with disturbance of conduct Current visit: Yes Status: Acute R/O Mild cognitive impairment R/O Personality disorder NOS (2) DM II (diabetes mellitus, type II), controlled Qualifiers: Diabetes mellitus complication status: without complication 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 However, do not feel psychiatric disorder or neurocognitive disorder is primary reason for patient's behaviors limiting therapy. I also believe she has capacity to make her own medical decisions at this time. Thank you for this consult, please contact me if you have further questions.
[2017-06-11] MEDS: APAP/DIPHENHYDRAMINE 500 MG/25 MG TABLET PO PRN (22:32)
[2017-06-12] MEDS: OXYCODONE/APAP 7.5 MG/325 MG TABLET PO SCH ×2 (06:56→14:29)
[2017-06-12] MEDS: POLYETHYL GLYCOL 3350 17gm PACKET PO SCH (08:48)
[2017-06-12] MEDS: SENNA + DOCUSATE TABLET PO SCH ×2 (08:48→20:02)
[2017-06-12] MEDS: ASPIRIN, BUFFERED 325 MG TABLET PO PRN ×2 (08:48→13:01)
[2017-06-12] MEDS: ENOXAPARIN 40 MG/0.4 ML INJECTION SQ SCH (08:49)
[2017-06-12] MEDS: FERROUS SULFATE 324 MG TABLET PO SCH ×2 (08:49→17:30)
[2017-06-12] MEDS: FAMOTIDINE 20 MG TABLET PO SCH (08:49)
[2017-06-12] MEDS: FOLIC ACID 1 MG TABLET PO SCH (08:49)
[2017-06-12] MEDS: LISINOPRIL 10 MG TABLET PO SCH (08:49)
[2017-06-12] MEDS: DULOXETINE 60 MG CAPSULE PO SCH (08:49)
[2017-06-12] MEDS: METFORMIN 500 MG TABLET PO SCH ×2 (08:49→17:30)
[2017-06-12] MEDS: CYCLOBENZAPRINE 10 MG TABLET PO PRN ×2 (08:49→14:29)
[2017-06-12] MEDS: CETAPHIL MOISTURIZING TOP SCH (10:06)
[2017-06-12] MEDS: OXYCODONE/APAP 7.5 MG/325 MG TABLET PO PRN ×2 (11:04→20:03)
[2017-06-13] MEDS: OXYCODONE/APAP 7.5 MG/325 MG TABLET PO SCH ×2 (06:17→14:37)
[2017-06-13] MEDS: OXYCODONE/APAP 7.5 MG/325 MG TABLET PO PRN ×2 (06:21→11:04)
[2017-06-13] MEDS: FAMOTIDINE 20 MG TABLET PO SCH (09:03)
[2017-06-13] MEDS: FOLIC ACID 1 MG TABLET PO SCH (09:03)
[2017-06-13] MEDS: ASPIRIN, BUFFERED 325 MG TABLET PO PRN ×2 (09:03→21:51)
[2017-06-13] MEDS: DULOXETINE 60 MG CAPSULE PO SCH (09:03)
[2017-06-13] MEDS: CYCLOBENZAPRINE 10 MG TABLET PO PRN (09:03)
[2017-06-13] MEDS: METFORMIN 500 MG TABLET PO SCH ×2 (09:03→17:53)
[2017-06-13] MEDS: POLYETHYL GLYCOL 3350 17gm PACKET PO SCH (09:04)
[2017-06-13] MEDS: FERROUS SULFATE 324 MG TABLET PO SCH ×2 (09:04→17:52)
[2017-06-13] MEDS: ENOXAPARIN 40 MG/0.4 ML INJECTION SQ SCH (09:04)
[2017-06-13] MEDS: LISINOPRIL 10 MG TABLET PO SCH (09:04)
[2017-06-13] MEDS: SENNA + DOCUSATE TABLET PO SCH ×2 (09:04→21:50)
[2017-06-13] MEDS: CETAPHIL MOISTURIZING TOP SCH (09:50)
[2017-06-14] MEDS: OXYCODONE/APAP 7.5 MG/325 MG TABLET PO SCH (06:18)
[2017-06-14] MEDS: FERROUS SULFATE 324 MG TABLET PO SCH ×2 (08:07→17:30)
[2017-06-14] MEDS: METFORMIN 500 MG TABLET PO SCH ×2 (08:08→17:30)
[2017-06-14] MEDS: DULOXETINE 60 MG CAPSULE PO SCH (08:08)
[2017-06-14] MEDS: ENOXAPARIN 40 MG/0.4 ML INJECTION SQ SCH (08:09)
[2017-06-14] MEDS: FOLIC ACID 1 MG TABLET PO SCH (08:09)
[2017-06-14] MEDS: FAMOTIDINE 20 MG TABLET PO SCH (08:09)
[2017-06-14] MEDS: LISINOPRIL 10 MG TABLET PO SCH (08:09)
[2017-06-14] MEDS: CETAPHIL MOISTURIZING TOP SCH (08:10)
[2017-06-14] MEDS: ASPIRIN, BUFFERED 325 MG TABLET PO PRN (08:50)
[2017-06-14] MEDS: CYCLOBENZAPRINE 10 MG TABLET PO PRN (08:50)
[2017-06-14] MEDS: POLYETHYL GLYCOL 3350 17gm PACKET PO SCH (09:55)
[2017-06-14] MEDS: SENNA + DOCUSATE TABLET PO SCH ×2 (09:55→20:36)
[2017-06-14] MEDS: OXYCODONE/APAP 7.5 MG/325 MG TABLET PO PRN (10:18)
--- NOTE | 2017-06-14 11:18 | IRU Progress Note ---
- Subjective/Serverity of Illness Date: 06/14/17 Ms. Magana was evaluated in her room on inpatient rehabilitation. She reports that the pain at times is excruciating. She is now waiting for 20 minutes after the pain medication was given (Percocet) so that she can work with therapy. We had changed from hydrocodone to oxycodone with acetaminophen thinking this would be a more potent pain medication. In addition we have started a fentanyl patch. She states that the current pain medication regimen is inadequate and she would like to go back to what she was taking at home. She reports that she was taking hydrocodone 10 mg at home and this will be reinstituted. In addition we'll increase the fentanyl patch to 25 g every 3 days. Finally, we have increased duloxetine to 60 mg daily and we will increase that to 90 mg daily. Brief therapy update: She has been uncooperative and has refused therapy on several occasions. She displays low motivation to occupational therapy. Requires maximum assistance for upper body dressing and total assistance for lower body dressing. For physical therapy she has refused transfers at times. Bed mobility is at maximum assistance. Update on medical issues were actively managing and monitorin. Lumbar spinal stenosis with localized and radicular pain: Pain management continues to be extremely difficult and is a limiting factor for her. She states that she would like to go back to hydrocodone so we will do this. We will also increase fentanyl patch to 25 g daily and increased duloxetine. 2. Diabetes mellitus type 2, not on insulin, controlled: Sugars once again reviewed and are stable. 3.Hypertension: Blood pressure is reviewed and stable. Exam Vital Signs: Temperature 97.5 F 06/14/17 09:42 Pulse Rate 76 06/14/17 09:42 Respiratory Rate 14 06/14/17 09:42 Blood Pressure 141/77 H 06/14/17 09:42 Pulse Oximetry 95 06/14/17 09:42 Height/Weight/BMI: Height 1.57 m Weight 81.3 kg Body Mass Index 32.6 - Constitutional Present: no acute distress (seems a bit sleepy at times during the interview.), well nourished, well developed. Absent: cooperative (she is not cooperative and refuses therapy at times.) - Routine HEENT Exam Head: Present: normocephalic, atraumatic Eye: Present: EOMI ENT: Present: mucous membranes moist - Routine Neck Exam Present: supple - Routine Respiratory Exam Present: CTA bilaterally. Absent: respiratory distress, wheezes - Routine Cardiovascular Exam Present: RRR, S1, S2. Absent: murmur - Routine Abdominal Exam Present: soft, normoactive bowel sounds, non distended. Absent: tenderness - Routine Extremities Exam Present: no edema - Routine Skin Exam Present: dry, warm - Routine Neurological Exam Present: alert, oriented X3, CN II-XII intact - Routine Psychiatric Exam Present: normal affect. Absent: cooperative, good insight, good judgment IRU A/P (1) Debilitated Current visit: Yes Status: Chronic Due to her pain, progress is extremely slow. She has not been able to improve tremendously with regard to debilitation. We'll discuss with therapists as well. (2) Lumbar spinal stenosis Qualifiers: Neurogenic claudication status: with neurogenic claudication Qualified Code (s): M48.062 - Spinal stenosis, lumbar region with neurogenic claudication Current visit: Yes Status: Chronic Continues to have severe pain in the left hip and down the posterior left leg. This is impeding her progress. She would like to go back to her hydrocodone and this will be accomplished. (3) DM II (diabetes mellitus, type II), controlled Qualifiers: Diabetes mellitus complication status: without complication Diabetes mellitus buttermaker helper insulin use: without buttermaker helper use Qualified Code(s): E11.9 - Type 2 diabetes mellitus without complications Current visit: Yes Status: Chronic (4) Degenerative joint disease of knee Qualifiers: Osteoarthritis type: primary Laterality: bilateral Qualified Code(s): M17.0 - Bilateral primary osteoarthritis of knee Current visit: Yes Status: Chronic (5) Hypertension Qualifiers: Hypertension type: essential hypertension Qualified Code(s): I10 - Essential (primary) hypertension Current visit: Yes Status: Chronic DVT Prophylaxis: SCD's, Lovenox Resuscitation Status: Full Code - Course Hospital Course: Bruno Duvall MD: 06/08/17 10:34 Getting started with therapy. Pain not well controlled. Increase duloxetine, switch to Percocet. 06/10/17 10:28 There is variable cooperation with therapy. The patient does exhibit a lot of pain in the left hip area. She is tolerating the additional duloxetine as well as the switch to Percocet. Appetite is borderline. 06/11/17 11:17 Consultation with psychiatry with patient's permission. Add on Duragesic patch. Continue local modalities for pain as well. Encourage patient to participate 34 hours daily. 06/14/17 11:19 Psychiatry consult reviewed and discussed with psychiatry. We will increase duloxetine to 90 mg daily. Patient was to go back to hydrocodone. Increase fentanyl patch to 25 g every 3 days. She is frequently not cooperative and refuses therapy. - Interventions to Obtain Goals PT Treatment Plan: Balance/Proprioception, Electrical Stimulation, Functional Activities, Gait Training, Manual Therapy, Patient/Family Education, Soft Tissue Massage, Therapeutic Exercise, Ultrasound OT Treatment Plan: ADL (Basic Care), Balance Training, Pt./Family Education, Ther. Exercise for ADL Goals Progress/Modifications: Time spent with patient and on floor reviewing data and documentin min Barriers to dismissal: pain, motivation Medical decision-making: Patient has had numerous modalities tried with regard to her pain in the past. She has had epidural steroids as well as a spinal stimulator but nothing seems to help. We had tried switching to Percocet but she wants to go back to hydrocodone. In addition we have started the fentanyl patch and we will increase that to 25 g every 3 days. We'll increase duloxetine to 90 mg daily.
[2017-06-14] MEDS: HYDROCODONE/APAP 10 MG/325 MG TABLET PO PRN ×2 (14:05→20:43)
[2017-06-14] MEDS: APAP/DIPHENHYDRAMINE 500 MG/25 MG TABLET PO PRN (20:35)
[2017-06-15] MEDS: ASPIRIN, BUFFERED 325 MG TABLET PO PRN ×2 (02:51→08:24)
[2017-06-15] MEDS: HYDROCODONE/APAP 10 MG/325 MG TABLET PO PRN ×4 (06:17→19:22)
[2017-06-15] MEDS: FERROUS SULFATE 324 MG TABLET PO SCH ×2 (08:20→18:19)
[2017-06-15] MEDS: METFORMIN 500 MG TABLET PO SCH ×2 (08:20→18:19)
[2017-06-15] MEDS: FAMOTIDINE 20 MG TABLET PO SCH (08:21)
[2017-06-15] MEDS: LISINOPRIL 10 MG TABLET PO SCH (08:21)
[2017-06-15] MEDS: SENNA + DOCUSATE TABLET PO SCH (08:21)
[2017-06-15] MEDS: FOLIC ACID 1 MG TABLET PO SCH (08:21)
[2017-06-15] MEDS: POLYETHYL GLYCOL 3350 17gm PACKET PO SCH (08:21)
[2017-06-15] MEDS: DULOXETINE 30 MG CAPSULE PO SCH (08:24)
[2017-06-15] MEDS: CYCLOBENZAPRINE 10 MG TABLET PO PRN (08:25)
[2017-06-15] MEDS: ENOXAPARIN 40 MG/0.4 ML INJECTION SQ SCH (09:56)
[2017-06-15] MEDS: CETAPHIL MOISTURIZING TOP SCH (09:57)
--- NOTE | 2017-06-15 10:26 | IRU Progress Note ---
- Subjective/Serverity of Illness Date: 06/15/17 Ms. Magana continues to complain of significant pain predominantly in the left hip sciatic notch area. There is radiation down the leg. She tends to lie on her back with the left leg over her right for maximum pain relief. When we tried external rotation, that caused more "grinding" pain according to the patient. She does feel as though the hydrocodone is a more effective pain reliever than the Percocet. She remains on the higher dose of fentanyl patch at 25 g every 3 days which was just started yesterday. Therapy reports that she is able to sit for a longer time and seems to be more comfortable with the use of hydrocodone. She denies any new symptoms. She again remind me that she was offered a 10 hour surgery on her back but that when they put her on an anti-osteoporosis medication her teeth fell out. She has had a fairly recent MRI of her back she states. However it is not clear if the left hip is been looked at independently or not. We will check a plain film of the left hip to assess degree of osteoarthritis. I reviewed her blood sugars and blood pressures both of which are adequately controlled at present. Exam Vital Signs: Temperature 97.4 F 06/15/17 07:24 Pulse Rate 80 06/15/17 07:24 Respiratory Rate 16 06/15/17 07:24 Blood Pressure 132/67 06/15/17 07:24 Pulse Oximetry 93 06/15/17 07:24 Height/Weight/BMI: Height 1.57 m Weight 81.3 kg Body Mass Index 32.6 - Constitutional Present: no acute distress, well nourished, well developed - Routine HEENT Exam Eye: Present: EOMI ENT: Present: mucous membranes moist - Routine Respiratory Exam Present: CTA bilaterally. Absent: respiratory distress, wheezes - Routine Cardiovascular Exam Present: RRR, S1, S2. Absent: murmur - Routine Abdominal Exam Present: soft, normoactive bowel sounds, non distended. Absent: tenderness - Routine Extremities Exam Present: no edema - Routine Back/Spine/Pelvis Exam Comments: Some tenderness noted posteriorly in left hip near sciatic notch. External rotation attempts of left hip were not successful due to discomfort. - Routine Skin Exam Present: dry, warm - Routine Neurological Exam Present: alert, oriented X3, CN II-XII intact - Routine Psychiatric Exam Present: normal affect, anxious IRU A/P (1) Debilitated Current visit: Yes Status: Chronic Patient is more cooperative with therapy today according to occupational therapy. She remains with significant debilitation. (2) Lumbar spinal stenosis Qualifiers: Neurogenic claudication status: with neurogenic claudication Qualified Code (s): M48.062 - Spinal stenosis, lumbar region with neurogenic claudication Current visit: Yes Status: Chronic Please see above discussion. Will investigate the left hip. (3) DM II (diabetes mellitus, type II), controlled Qualifiers: Diabetes mellitus complication status: without complication Diabetes mellitus terminal worker insulin use: without terminal worker use Qualified Code(s): E11.9 - Type 2 diabetes mellitus without complications Current visit: Yes Status: Chronic (4) Degenerative joint disease of knee Qualifiers: Osteoarthritis type: primary Laterality: bilateral Qualified Code(s): M17.0 - Bilateral primary osteoarthritis of knee Current visit: Yes Status: Chronic (5) Hypertension Qualifiers: Hypertension type: essential hypertension Qualified Code(s): I10 - Essential (primary) hypertension Current visit: Yes Status: Chronic DVT Prophylaxis: SCD's, Lovenox Resuscitation Status: Full Code - Course Hospital Course: Bruno Duvall MD: 06/08/17 10:34 Getting started with therapy. Pain not well controlled. Increase duloxetine, switch to Percocet. 06/10/17 10:28 There is variable cooperation with therapy. The patient does exhibit a lot of pain in the left hip area. She is tolerating the additional duloxetine as well as the switch to Percocet. Appetite is borderline. 06/11/17 11:17 Consultation with psychiatry with patient's permission. Add on Duragesic patch. Continue local modalities for pain as well. Encourage patient to participate 34 hours daily. 06/14/17 11:19 Psychiatry consult reviewed and discussed with psychiatry. We will increase duloxetine to 90 mg daily. Patient was to go back to hydrocodone. Increase fentanyl patch to 25 g every 3 days. She is frequently not cooperative and refuses therapy. 06/15/17 10:27 Seems to have better pain control with hydrocodone. Fentanyl patch has been increased yesterday and duloxetine was increased. A bit more cooperative with therapy today. We'll investigate left hip DJD. - Interventions to Obtain Goals PT Treatment Plan: Balance/Proprioception, Electrical Stimulation, Functional Activities, Gait Training, Manual Therapy, Patient/Family Education, Soft Tissue Massage, Therapeutic Exercise, Ultrasound OT Treatment Plan: ADL (Basic Care), Balance Training, Pt./Family Education, Ther. Exercise for ADL Goals Progress/Modifications: Time spent with patient and on floor reviewing data and documentin min Barriers to dismissal: Pain, motivation, endurance Medical decision-making: Her blood sugars and blood pressures appear to be stable. Pain management continues to be a challenge. She feels as though the hydrocodone has been better for her than the Percocet (she was on hydrocodone at home before she came in). However we've also increased duloxetine and added on fentanyl patch. According to occupational therapy she is more cooperative today. She continues to complain of pain predominantly in the left hip area at sciatic notch. Has pain on external rotation of the left hip. We will check a plain film of the left hip with regard to degenerative changes.
--- NOTE | 2017-06-15 11:15 | XRay Report ---
Indication: acute on chronic pain left hip (no trauma) PROCEDURE: XR hip LT min 2V: Encounter: Initial Comparison: None. Findings: There is no definite hip effusion. There are mild degenerative changes of the left hip joint. There is also moderate spurring from the greater trochanter. The exam is limited by patient body habitus. The mineralization and the alignment appear well preserved. There is no definite periosteal reaction or bony lesion. There is no focal soft tissue swelling. There is no clear displaced fracture or bony destructive process. No dislocation or subluxation. No radiopaque foreign body. IMPRESSION: No definite bony destructive process. .
[2017-06-16] MEDS: SENNA + DOCUSATE TABLET PO SCH ×3 (00:51→21:13)
[2017-06-16] MEDS: HYDROCODONE/APAP 10 MG/325 MG TABLET PO PRN ×4 (06:03→22:03)
[2017-06-16] MEDS: DULOXETINE 30 MG CAPSULE PO SCH (08:32)
[2017-06-16] MEDS: FAMOTIDINE 20 MG TABLET PO SCH (08:32)
[2017-06-16] MEDS: METFORMIN 500 MG TABLET PO SCH ×2 (08:32→17:31)
[2017-06-16] MEDS: CYCLOBENZAPRINE 10 MG TABLET PO PRN ×2 (08:32→14:52)
[2017-06-16] MEDS: FERROUS SULFATE 324 MG TABLET PO SCH ×2 (08:32→17:31)
[2017-06-16] MEDS: ASPIRIN, BUFFERED 325 MG TABLET PO PRN ×3 (08:32→17:31)
[2017-06-16] MEDS: FOLIC ACID 1 MG TABLET PO SCH (08:32)
[2017-06-16] MEDS: POLYETHYL GLYCOL 3350 17gm PACKET PO SCH (08:33)
[2017-06-16] MEDS: CETAPHIL MOISTURIZING TOP SCH (08:33)
[2017-06-16] MEDS: ENOXAPARIN 40 MG/0.4 ML INJECTION SQ SCH (08:33)
[2017-06-16] MEDS: LISINOPRIL 10 MG TABLET PO SCH (08:38)
[2017-06-16] MEDS: APAP/DIPHENHYDRAMINE 500 MG/25 MG TABLET PO PRN (22:04)
[2017-06-17] MEDS: ASPIRIN, BUFFERED 325 MG TABLET PO PRN ×3 (03:58→18:34)
[2017-06-17] MEDS: HYDROCODONE/APAP 10 MG/325 MG TABLET PO PRN ×4 (06:23→21:48)
[2017-06-17] MEDS: FERROUS SULFATE 324 MG TABLET PO SCH ×2 (08:26→18:33)
[2017-06-17] MEDS: DULOXETINE 30 MG CAPSULE PO SCH (08:26)
[2017-06-17] MEDS: METFORMIN 500 MG TABLET PO SCH ×2 (08:26→18:33)
[2017-06-17] MEDS: POLYETHYL GLYCOL 3350 17gm PACKET PO SCH (08:26)
[2017-06-17] MEDS: SENNA + DOCUSATE TABLET PO SCH ×2 (08:28→21:34)
[2017-06-17] MEDS: FOLIC ACID 1 MG TABLET PO SCH (08:28)
[2017-06-17] MEDS: LISINOPRIL 10 MG TABLET PO SCH (08:28)
[2017-06-17] MEDS: ENOXAPARIN 40 MG/0.4 ML INJECTION SQ SCH (08:28)
[2017-06-17] MEDS: FAMOTIDINE 20 MG TABLET PO SCH (08:28)
[2017-06-17] MEDS: CETAPHIL MOISTURIZING TOP SCH (10:22)
--- NOTE | 2017-06-17 10:55 | IRU Progress Note ---
- Subjective/Serverity of Illness Date: 06/17/17 Ms. Magana was evaluated in her room on inpatient rehabilitation. She states that she was doing fairly well couple days ago then yesterday was bad because "they forgot to give me my aspirin or pain medicine in the night." Had a difficult day yesterday and today. Has excruciating pain. She says that the pain is limiting her in her progress. Reports her appetite is adequate. She is having bowel movements. She reports that she "blew up" a couple of times. She would not tell me exactly what she meant by that. However she did attributed to lack of adequate pain control. Brief therapy update: She refused yesterday mornings occupational therapy session. Ultimately she did participate later in the morning. Requires maximum assistance for bathing, total assist for upper body dressing. She refused lower body dressing yesterday. Toilet transfers are difficult. She becomes anxious and starts to curse. She has poor safety awareness. For physical therapy she is able to ambulate only 19 feet with total assistance. Motivation is poor and participation is poor. Her blood sugars and blood pressures are reviewed and are all stable. Pain management appears to be improved with use of hydrocodone and fentanyl patch although she continues to complain of pain which she states prevents her from participating in therapy. Exam Vital Signs: Temperature 98.0 F 06/16/17 23:57 Pulse Rate 82 06/16/17 23:57 Respiratory Rate 16 06/16/17 23:57 Blood Pressure 136/64 06/16/17 23:57 Pulse Oximetry 98 06/16/17 23:57 Height/Weight/BMI: Height 1.57 m Weight 81.3 kg Body Mass Index 32.6 - Constitutional Present: no acute distress, well nourished, well developed, obese. Absent: cooperative (she has refused therapy on several occasions. She has poor safety awareness.) Comments: Continues to lie on her back with the left leg over the right leg. She does not appear to be in any acute distress at present. - Routine HEENT Exam Head: Present: normocephalic Eye: Present: EOMI ENT: Present: mucous membranes moist - Routine Respiratory Exam Present: CTA bilaterally. Absent: wheezes - Routine Cardiovascular Exam Present: RRR, S1, S2. Absent: murmur - Routine Abdominal Exam Present: soft, normoactive bowel sounds, non distended. Absent: tenderness - Routine Extremities Exam Present: no edema, normal capillary refill Comments: Inspection of left heel shows an area of cracked/flaky skin medial aspect of left heel. Minimal redness. - Routine Skin Exam Present: dry, warm - Routine Neurological Exam Present: alert, oriented X3, CN II-XII intact - Routine Psychiatric Exam Present: normal affect, anxious. Absent: cooperative, good insight, good judgment IRU A/P (1) Debilitated Current visit: Yes Status: Chronic Progress with therapy is variable. She has refused treatment on several occasions. Motivation is poor. (2) Lumbar spinal stenosis Qualifiers: Neurogenic claudication status: with neurogenic claudication Qualified Code (s): M48.062 - Spinal stenosis, lumbar region with neurogenic claudication Current visit: Yes Status: Chronic She believes that the hydrocodone is more effective than the oxycodone in pain relief. She is also on the fentanyl patch and we have increased her duloxetine. (3) DM II (diabetes mellitus, type II), controlled Qualifiers: Diabetes mellitus complication status: without complication Diabetes mellitus fci insulin use: without fci use Qualified Code(s): E11.9 - Type 2 diabetes mellitus without complications Current visit: Yes Status: Chronic (4) Degenerative joint disease of knee Qualifiers: Osteoarthritis type: primary Laterality: bilateral Qualified Code(s): M17.0 - Bilateral primary osteoarthritis of knee Current visit: Yes Status: Chronic (5) Hypertension Qualifiers: Hypertension type: essential hypertension Qualified Code(s): I10 - Essential (primary) hypertension Current visit: Yes Status: Chronic DVT Prophylaxis: SCD's, Lovenox Resuscitation Status: Full Code - Course Hospital Course: Bruno Duvall MD: 06/08/17 10:34 Getting started with therapy. Pain not well controlled. Increase duloxetine, switch to Percocet. 06/10/17 10:28 There is variable cooperation with therapy. The patient does exhibit a lot of pain in the left hip area. She is tolerating the additional duloxetine as well as the switch to Percocet. Appetite is borderline. 06/11/17 11:17 Consultation with psychiatry with patient's permission. Add on Duragesic patch. Continue local modalities for pain as well. Encourage patient to participate 34 hours daily. 06/14/17 11:19 Psychiatry consult reviewed and discussed with psychiatry. We will increase duloxetine to 90 mg daily. Patient was to go back to hydrocodone. Increase fentanyl patch to 25 g every 3 days. She is frequently not cooperative and refuses therapy. 06/15/17 10:27 Seems to have better pain control with hydrocodone. Fentanyl patch has been increased yesterday and duloxetine was increased. A bit more cooperative with therapy today. We'll investigate left hip DJD. 06/17/17 10:59 Left hip film shows no significant DJD. Pain management continues to be a significant impediment. Low motivation and willingness to participate in therapies at times. - Interventions to Obtain Goals PT Treatment Plan: Balance/Proprioception, Electrical Stimulation, Functional Activities, Gait Training, Manual Therapy, Patient/Family Education, Soft Tissue Massage, Therapeutic Exercise, Ultrasound OT Treatment Plan: ADL (Basic Care), Balance Training, Pt./Family Education, Ther. Exercise for ADL Goals Progress/Modifications: Time spent with patient and on floor reviewing data and documentin min Barriers to dismissal: Pain, motivation, participation, debilitation, endurance Medical decision-making: I have again reviewed Irena's pain management schedule. We just increase the fentanyl patch 3 days ago. We have increased her duloxetine but that could go up to 120 mg if needed. Not certain there is been much improvement. She believes the hydrocodone is better than the oxycodone. She has displayed anxiety and cursing and poor safety awareness. She has refused therapy on several occasions. Her motivation and participation are not great. We will have a multidisciplinary meeting today to look at things from a global perspective.
--- NOTE | 2017-06-17 13:52 | IRU Team Meeting ---
IRU Team Meeting - Nursing Bladder Assistive Devices Utilized:: Absorbent Pad Bladder Management Level of Assist: Moderate Assistance Bladder Frequency of Accidents: No accidents Bowel Assistive Devices Utilized:: Medication, Absorbent Pad Bowel Management Level of Assist: Modified Independent Bowel Frequency of Accidents: No accidents Vital Signs: Vital Signs - 24 hr 06/16/17 16:00 06/16/17 23:57 06/17/17 08:00 Temperature 98.3 F 98.0 F 97.6 F Pulse Rate 83 82 76 Respiratory Rate 18 16 14 Blood Pressure 122/65 136/64 114/59 Pulse Oximetry 92 98 96 Current Medications: Acetaminophen/Diphenhydramine HCl (Tylenol Pm) 1 tab PO HS PRN PRN Reason: Sleep Last Admin: 06/16/17 22:04 Dose: 1 tab Hydrocodone Bitart/Acetaminophen (Vilas 10/325) 1 tab PO Q4H PRN PRN Reason: Pain Last Admin: 06/17/17 11:49 Dose: 1 tab Aspirin Buffered (Ascriptin) 650 mg PO Q4H PRN PRN Reason: Pain Last Admin: 06/17/17 10:22 Dose: 650 mg Calcium Carbonate (Tums) 500 mg PO Q6H PRN PRN Reason: Indigestion Cyclobenzaprine HCl (Flexeril) 10 mg PO Q8H PRN PRN Reason: Muscle cramps Last Admin: 06/16/17 14:52 Dose: 10 mg Duloxetine HCl (Cymbalta) 90 mg PO DAILY [facility] Last Admin: 06/17/17 08:26 Dose: 90 mg Enoxaparin Sodium (Lovenox) 40 mg SQ DAILY [facility] Last Admin: 06/17/17 08:28 Dose: 40 mg Famotidine (Pepcid) 20 mg PO DAILY [facility] Last Admin: 06/17/17 08:28 Dose: 20 mg Fentanyl (Duragesic Patch) 25 mcg TD Q3D [facility] Last Admin: 06/17/17 12:45 Dose: 25 mcg Fentanyl Citrate (Duragesic Patch Removal) 1 removal TD Q3D@1115 [facility] Last Admin: 06/17/17 12:46 Dose: 1 removal Ferrous Sulfate (Feosol) 324 mg PO BIDWM [facility] Last Admin: 06/17/17 08:26 Dose: 324 mg Folic Acid (Folate) 1 mg PO DAILY [facility] Last Admin: 06/17/17 08:28 Dose: 1 mg Lisinopril (Prinivil) 10 mg PO DAILY [facility] Last Admin: 06/17/17 08:28 Dose: 10 mg Magnesium Hydroxide (Mom) 30 ml PO DAILY PRN PRN Reason: Constipation Metformin HCl (Glucophage) 500 mg PO BIDWM [facility] Last Admin: 06/17/17 08:26 Dose: 500 mg Multi-Ingredient Lotion (Cetaphil) 1 applic TOP DAILY [facility] Last Admin: 06/17/17 10:22 Dose: 1 applic Ondansetron HCl (Zofran Po) 4 mg PO Q8H PRN PRN Reason: NAUSEA & VOMITING Last Admin: 06/10/17 08:52 Dose: 4 mg Polyethylene Glycol (Miralax) 34 gm PO DAILY [facility] Last Admin: 06/17/17 08:26 Dose: 34 gm Potassium Chloride (K-Dur) 5 meq PO WB [facility] Last Admin: 06/17/17 08:27 Dose: 5 meq Senna/Docusate Sodium (Senna Plus Tablet) 2 tab PO BID [facility] Last Admin: 06/17/17 08:28 Dose: 2 tab Sodium Chloride (Iv Flush) 10 ml IV PRN PRN PRN Reason: Flushing Last Admin: 06/10/17 08:52 Dose: 10 ml Current Medical Issues: Pain control, diabetes mellitus, hypertension Comments: Adjustments in pain management have been as follows: 1. We tried oxycodone without benefit. She is now back on hydrocodone with acetaminophen 10 mg which seems to work better, 2.addition of fentanyl patch now at 25 g every 3 days- patient does not think it is provided any benefit so we will stop, 3. Flexeril 3 times daily as needed, 4. Increase duloxetine to 90 mg daily. Pain continues to be difficult to control frequently. Patient states that pain prevents her from participating in therapy at times. Her blood sugars have been adequate and her blood pressures have looked good. - Physical Therapy Bed, Chair, Wheelchair Transfer Assist: Stand By Assist/Supervision, 1 Person Assist Ambulation Ability: Stand By Assist/Supervision, Household Exception, 1 Person Assist Ambulation Distance: 78 Wheelchair Propulsion Ability: Total Assistance, 1 Person Assist Wheelchair Propulsion Distance: 5 Stair Climbing Ability: Maximal Assistance, 1 Person Assist Number of Steps Climbed: 2 Car Transfer Ability: Patient Unsafe/Unable Comments: Patient's progress has been variable. However she has met several goals. It is felt that she is safe to return home in the next 24 hours. She has demonstrated improved tolerance for activity. She does have limited ability to perform stair ambulation but has attempted this. She was able to walk further today. - Occupational Therapy Eating Ability: Modified Independent Grooming Ability: Stand By Assist/Supervision Bathing Ability: Total Assistance Upper Body Dressing Ability: Maximal Assistance Lower Body Dressing Ability: Total Assistance Tub Transfer Assist: Patient Unsafe/Unable Toileting Assist: Total Assistance Toilet Transfer Assist: Minimal Assistance Comments: She is quite variable with occupational therapy. She is limited by pain levels. She states "I can do better at home." She continues to require total assistance for lower body dressing although will be available to assist at home. - Goals Physical Therapy Goals: 06/10/17 Goals: 1.) Implement stretching program to decrease pain - partially met. 2.) Amb 50 feet contact guard assistance - met, supervision 78 feet. 3.) Transfers with supervision - met. 06/17/17 Goals: 1. ) Car transfer with supervision. 2.) Discharge Planning Occupational Therapy Goals: OT goals 06/10/17: 1.) UB dress 4/7- continue (Pt. requires mod-max assist depending on pain levels). 2.) participation in ADL routine w/ 3 RB. (Continue). 3.) LB dress /7 (continue- Pt. currently requires max assist. - Barriers to Discharge Barriers to Attaining Goals: Endurance, Pain Control, Other (motivation, participation, safety) - Care Plan Anticipated Length of Stay (days): 1 Anticipated DC Destination: Home Health Service I have led this team conference and agree with the plan. Interventions/Goals: Patient has met several goals. It is felt that she is safe to return home in the next 24 hours. Continue therapies through tomorrow morning at least. Arrangements will be made for home health management at home.
[2017-06-18] MEDS: HYDROCODONE/APAP 10 MG/325 MG TABLET PO PRN ×2 (06:59→11:14)
[2017-06-18] MEDS: DULOXETINE 30 MG CAPSULE PO SCH (08:56)
[2017-06-18] MEDS: POLYETHYL GLYCOL 3350 17gm PACKET PO SCH (08:57)
[2017-06-18] MEDS: CETAPHIL MOISTURIZING TOP SCH (08:58)
[2017-06-18] MEDS: FOLIC ACID 1 MG TABLET PO SCH (08:58)
[2017-06-18] MEDS: ENOXAPARIN 40 MG/0.4 ML INJECTION SQ SCH (08:58)
[2017-06-18] MEDS: LISINOPRIL 10 MG TABLET PO SCH (08:58)
[2017-06-18] MEDS: METFORMIN 500 MG TABLET PO SCH (08:59)
[2017-06-18] MEDS: SENNA + DOCUSATE TABLET PO SCH (08:59)
[2017-06-18] MEDS: FERROUS SULFATE 324 MG TABLET PO SCH (08:59)
[2017-06-18] MEDS: ASPIRIN, BUFFERED 325 MG TABLET PO PRN (09:00)
[2017-06-18 09:32] VITALS: BP 122/68; PULSE 72; RESP 12; TEMP 97.4; O2SAT 97
--- NOTE | 2017-06-18 11:49 | IRU Progress Note ---
- Subjective/Serverity of Illness Date: 06/18/17 Ms. Magana was reassessed in her room today on inpatient rehabilitation. She says that the pain is quite bad today. She has declined therapy. I have reviewed therapy notes from yesterday and feels though she has made some progress. However her participation and motivation are poor. At this time she is stable to return home for continued therapy with occupational therapy and physical therapy along with intermediate. Exam Vital Signs: Temperature 97.4 F 06/18/17 08:00 Pulse Rate 72 06/18/17 08:00 Respiratory Rate 12 06/18/17 08:00 Blood Pressure 122/68 06/18/17 08:00 Pulse Oximetry 97 06/18/17 08:00 Height/Weight/BMI: Height 1.57 m Weight 81.3 kg Body Mass Index 32.6 - Constitutional Present: moderate distress, well nourished, well developed. Absent: cooperative - Routine HEENT Exam Head: Present: normocephalic Eye: Absent: scleral injection ENT: Present: mucous membranes moist - Routine Neck Exam Present: supple - Routine Respiratory Exam Present: CTA bilaterally. Absent: rhonchi, wheezes, crackles - Routine Cardiovascular Exam Present: RRR, S1, S2. Absent: murmur - Routine Abdominal Exam Present: soft, normoactive bowel sounds, non distended. Absent: tenderness - Routine Extremities Exam Present: no edema - Routine Skin Exam Present: dry, warm - Routine Neurological Exam Present: alert, oriented X3, CN II-XII intact - Routine Psychiatric Exam Present: normal affect, anxious. Absent: cooperative IRU A/P (1) Debilitated Current visit: Yes Status: Chronic Patient severe debilitation has improved somewhat on rehabilitation. She is medically stable to return to her home. She has declined therapies today so far. (2) Lumbar spinal stenosis Qualifiers: Neurogenic claudication status: with neurogenic claudication Qualified Code (s): M48.062 - Spinal stenosis, lumbar region with neurogenic claudication Current visit: Yes Status: Chronic Patient continues to be an issue. Pain pills have been written. She declines the patch. (3) DM II (diabetes mellitus, type II), controlled Qualifiers: Diabetes mellitus complication status: without complication Diabetes mellitus penitentiary insulin use: without penitentiary use Qualified Code(s): E11.9 - Type 2 diabetes mellitus without complications Current visit: Yes Status: Chronic Her blood sugars are stable. (4) Degenerative joint disease of knee Qualifiers: Osteoarthritis type: primary Laterality: bilateral Qualified Code(s): M17.0 - Bilateral primary osteoarthritis of knee Current visit: Yes Status: Chronic (5) Hypertension Qualifiers: Hypertension type: essential hypertension Qualified Code(s): I10 - Essential (primary) hypertension Current visit: Yes Status: Chronic DVT Prophylaxis: SCD's, Lovenox Resuscitation Status: Full Code - Course Hospital Course: Bruno Duvall MD: 06/08/17 10:34 Getting started with therapy. Pain not well controlled. Increase duloxetine, switch to Percocet. 06/10/17 10:28 There is variable cooperation with therapy. The patient does exhibit a lot of pain in the left hip area. She is tolerating the additional duloxetine as well as the switch to Percocet. Appetite is borderline. 06/11/17 11:17 Consultation with psychiatry with patient's permission. Add on Duragesic patch. Continue local modalities for pain as well. Encourage patient to participate 34 hours daily. 06/14/17 11:19 Psychiatry consult reviewed and discussed with psychiatry. We will increase duloxetine to 90 mg daily. Patient was to go back to hydrocodone. Increase fentanyl patch to 25 g every 3 days. She is frequently not cooperative and refuses therapy. 06/15/17 10:27 Seems to have better pain control with hydrocodone. Fentanyl patch has been increased yesterday and duloxetine was increased. A bit more cooperative with therapy today. We'll investigate left hip DJD. 06/17/17 10:59 Left hip film shows no significant DJD. Pain management continues to be a significant impediment. Low motivation and willingness to participate in therapies at times. 06/18/17 11:49 Pain continues to be a difficult issue. Patient did not participate with therapies today so far. - Interventions to Obtain Goals PT Treatment Plan: Balance/Proprioception, Electrical Stimulation, Functional Activities, Gait Training, Manual Therapy, Patient/Family Education, Soft Tissue Massage, Therapeutic Exercise, Ultrasound OT Treatment Plan: ADL (Basic Care), Balance Training, Pt./Family Education, Ther. Exercise for ADL
--- NOTE | 2017-06-18 13:45 | Discharge Summary ---
Discharge Information Date of admission: 06/07/17 10:05 Anticipated date of discharge: 06/18/17 Attending Physician: Bruno Duvall MD Primary care physician: Wilmer Argueta DO Consults: 06/07/17 11:24 Physician Consult [CONS] Routine Consulting Provider: Gonzalo Mcnair Reason For Exam: medical management Ordering Provider has Notified Electric Knife Operator: No 06/07/17 12:37 [facility] Consult [CONS] Routine 06/07/17 13:17 Dietary Consult [CONS] Routine Comment: Reason For Exam: diabetes 06/11/17 10:06 Doctor [Physician Consult] [CONS] Routine Consulting Provider: Belen Rangel Reason For Exam: depression, possible cognitive decline Ordering Provider has Notified Electric Knife Operator: Yes - Discharge Diagnosis (1) Debilitated Status: Chronic (2) Lumbar spinal stenosis Status: Chronic (3) DM II (diabetes mellitus, type II), controlled Status: Chronic (4) Degenerative joint disease of knee Status: Chronic (5) Hypertension Status: Chronic 1. Severe generalized debilitation 2. Chronic lumbar spinal stenosis with acute pain exacerbation of low back and left hip 3. Diabetes mellitus type 2, controlled and not on insulin 4. Benign essential hypertension - Laboratory Labs: 06/14/17 04:23 06/14/17 04:23 History of Present Illness HPI: Ms. Magana is a pleasant 76-year-old female from [place], [place]. She is cared for by RAJAT Lim and Dr. James Browne in [place]. She has a history of severe spinal stenosis. She had extensive spinal surgery in [address] Mei in [place]. She continues to have severe pain primarily left buttock down the left leg. She has severe functional deficits. The pain has worsened along with her functional deficits over the past 1 month or so at home. Recently she has deteriorated with the ability to care for herself at home. She has been seen by home health physical therapy and occupational therapy as well as alf but despite this has had a downhill course with regard to ADLs and ambulation. The patient was admitted to acute inpatient rehabilitation on 06/07/2017 to address these issues along with her diabetes mellitus, pain management and hypertension. Hospital Course This is a general summary of the patient's hospital course. For more details refer to the complete medical record. She was admitted to acute inpatient rehabilitation. She was followed by the hospitalist service as well as Dr. Duvall. Because of her severe pain, pain management was adjusted on several occasions. We switched from hydrocodone to oxycodone. We added on a fentanyl patch initially at 12 g every 3 days and increasing that to 25 g every 3 days. In addition she was on duloxetine 30 mg daily initially and this was gradually escalated to 60 then 90 mg daily. She was seen by Belen Rangel M.D., psychiatry. She did not feel as though the patient had evidence of cognitive deficiency and suggested increasing her duloxetine for pain management. She was seen by occupational therapy and physical therapy. She had a variable course depending on her pain level. She refused therapy on several occasions intermittently due to pain but she was able to complete her therapy course later on each day. She refused therapy on the final day of her hospitalization. For occupational therapy her functional progress was as follows: She was able to eat with modified independent functioning upon admission and dismissal. Grooming was performed with moderate assistance initially and ultimately with standby assistance. Bathing ability was total assistance upon admission and dismissal. Upper body dressing improved from total assistance to maximum assistance at the time of dismissal. Lower body dressing was performed with total assistance upon admission and dismissal. Toileting assistance was initially maximum and subsequently total assistance. Toilet transfer assist was minimal assistance upon admission and dismissal. Bed/chair/wheelchair transfers were ultimately performed with maximum assistance with occupational therapy. Physical therapy her functional progress is as follows: Bed/chair/wheelchair transfers were initially maximum assistance for physical therapy and ultimately able to be performed with standby assistance. Toilet assist was initially maximum assistance and ultimately maximum assistance as well upon dismissal. Toilet transfer assist was initially standby and ultimately contact guard assistance. Car transfers were initially refused by the patient and ultimately able to be performed with maximum assistance of 1 person. Ambulatory ability did improve. She was initially total assist with a 4 wheeled walker walking 44 feet. She subsequent he was able to ambulate with standby assistance 78 feet with a 4 wheeled walker. She was able to to climb one or 2 steps with total assistance. The patient reported to me that she did not think the fentanyl patch was of any benefit. Therefore this was discontinued. We did give her a prescription for hydrocodone/acetaminophen 10/325 mg #30 to use 1 every 6 hours as needed for pain. In addition she will continue her aspirin as she was at home. We also gave her prescription for 60 mg duloxetine to use with her 30 mg (equals 90 mg every morning). She will follow-up with RAJ[facility]. Hospital course: Impression Debility Right knee pain- Recent fall Lumbar spine stenosis Chronic pain Type II diabetes Hypertension Right hand weakness Plan Agree with admission to IRU under the care of Dr. Duvall for general debility Appreciate hospital consultation for medical management of existing comorbidities. In light of recent fall and acute right medial knee pain with ecchymosis, we will obtain an x-ray of the right knee. Monitor Accu-Cheks, and continue with home metformin 500 milligrams twice a day. Monitor blood pressure, continue on lisinopril. Pepcid daily for GI protection given history of GERD Lovenox subcutaneous daily for DVT prophylaxis Patient does wish to be a full code and this orders written Pain management as per Dr. Duvall recommendations. Encourage work with PT and OT for ongoing strengthening and improve function. The hospitalist services will continue to follow patient and medical management existing comorbidities during her stay on the rehabilitation unit. At time of discharge Dr. James Browne Plan - 06/09/17 Irena continues to struggle with significant pain control and has repeatedly threatened to leave the unit AMA due to lack of perceived adequate pain control. An IV was placed and she was given Valium 5mg IV x 1 dose as well as Morphine 2mg IV x 1 dose over the course of the day in addition to her PRN and scheduled medications with some temporary improvement. She continues to refuse to participate in self care and limits her participation in therapies due to her pain. Concern that IRU therapies may be too aggressive as she may succeed more in less intensive environment such as SNU. Will continue with therapies and pain control per Dr. Duvall. Continue to encourage participation in therapies for improvement in strength and functional abilities. Blood sugars have been well controlled. Continue home metformin 500mg BID and BGMs. Blood pressure stable. Continue home lisinopril. Pepcid daily for GI protection given history of GERD Lovenox subcutaneous daily for DVT prophylaxis Labs on admission were unremarkable. Will monitor periodically throughout admission. Folate on low-end of normal. Will start folate daily. Plan - 06/11/17 Irena continues to struggle with pain control, though admits her pain is improved and continues to threatened to leave the unit AMA due to lack of perceived adequate pain control, often demanding to see a clinician. Discussed at length with patient and Dr. Duvall. Patient reports previously trying "a patch" for pain control without improvement. Patient is willing to try Duragesic pain control in addition to other pain medications. Dr. Duvall to continue to manage pain control and therapies. Continue to encourage participation in therapies as well as independent cares. Recommended patient ask her to bring up her "looser" pants so she is able better dress herself. Also recommended that she set an alarm in the AM to begin her morning cares independently in lieu of waiting for someone to wake her up. Concern for depression as well as possible cognitive decline as she is often unable to remember prior conversations and/or remembers situations significantly differently than how they occurred. Unclear if cognitive issues are secondary to medications or possibly underlying dementia. Will consult Dr. Rangel for further psychiatric evaluation and treatment recommendations. She is currently on Cymbalta 60mg which could possibly be increased. Treatment for depression may also assist in better pain control. Discussed at length concern that IRU therapies may be too aggressive for her and opened up the option of SNU which she refused. Blood sugars have been well controlled. Continue home metformin 500mg BID and BGMs. Blood pressure stable. Continue home lisinopril. Pepcid daily for GI protection given history of GERD Lovenox subcutaneous daily for DVT prophylaxis. Continue to provide safe and supportive environment. Monitor family closely for signs of after school caregiver burn-out. Time spent with patient: greater than 35 minutes Resuscitation Status: Full Code Discharge Plan - Med Rec/Dispo Referrals/Follow Up: James Browne MD [Physician] - (Dr. Shaila Browne on 06/21/17 at 2:40 pm for Hosp. follow-up. . [place] [id number]) Prescriptions: New Duloxetine [Cymbalta] 60 mg PO DAILY #30 capsule. Hydrocodone/APAP 10/325 [[place] 10/325] 1 tab PO Q4H PRN #30 tab PRN Reason: Pain Continue Ondansetron HCl 4 mg PO Q8H PRN PRN Reason: n/v Famotidine [Pepcid] 1 tab PO DAILY CALCIUM CARBONATE Chewable [Tums] 1 tab PO Q6H PRN PRN Reason: Indigestion Cyclobenzaprine [Flexeril] 1 tab PO Q8H PRN PRN Reason: Muscle Cramps APAP/Diphenhydramine 500/25 [Tylenol Pm] 1 tab PO HS PRN PRN Reason: Sleep Aspirin [Pauline Advanced] 2 tab PO Q4H PRN PRN Reason: Pain Ferrous Sulfate [Iron] 325 mg PO BIDWM Potassium 99 mg PO DAILY Duloxetine HCl 30 mg PO DAILY Metformin [Glucophage] 500 mg PO BIDWM PEG 3350 17gm PACKET [Miralax] 34 gm PO DAILY Lisinopril [Prinivil] 10 mg PO DAILY Discontinued Hydrocodone/APAP 10/325 [[place] 10/325] 1 tab PO Q6H PRN PRN Reason: Pain - Disposition 01 Discharged Home, Self-Care
--- NOTE | 2017-06-18 13:53 | Letter to Referring Physician ---
Dear Renato, This is a brief note to bring you up-to-date on the status of Irena Magana and her stay on the acute inpatient rehabilitation unit at [facility]. As you are likely aware, this patient was admitted to inpatient rehabilitation unit at [facility] on June 07, 2017. She had been seen at home by physical therapy and occupational therapy and shelter and over the last several weeks it had a progressive downhill course with regard to functional ability and pain management. While on inpatient rehabilitation, this patient was seen by occupational therapy and physical therapy and improved somewhat in their functional ability. However her progress was variable depending on her pain level. She frequently would refuse therapy initially but ultimately participated as the day went on. However pain management was difficult. We initially switched her from hydrocodone to oxycodone. We then added on a fentanyl patch initially at 12 g and ultimately 25 g every 3 days. In addition we escalated her dose of duloxetine from 30 up to 60 and finally 90 mg daily. She did not feel as though the fentanyl patch was of any benefit so we ultimately discontinued that prior to dismissal. You should be receiving a copy of her history and physical exam as well as discharge summary. If not please contact me directly at [facility] acute inpatient rehabilitation. Please note that I gave her prescription for duloxetine 60 mg. She is to use that plus her 30 mg (equals 90 mg) daily to hopefully help with pain management. In addition, please note that I gave her a prescription for hydrocodone with acetaminophen 10/325 #30 to use 1 every 6 hours as needed for pain. Thank you for allowing us to be involved in this nice patient's care. Please contact me directly should you have any questions regarding their stay on the inpatient rehabilitation unit. Sincerely, Bruno Duvall M.D.
== END 2017-06-18 13:30 | disposition home health service (06) | DRG 946 ==
PROVIDERS: ADMIT Internal Medicine; ATTEND Internal Medicine